=== PATIENT | female | born 1985 | race Caucasian/White ===

== ENCOUNTER 2021-01-15 13:42 | Emergency (ER) | payer MEDICAID, SELFPAY | END 2021-01-15 15:43 | disposition left against medical advice (07) | PROVIDERS: Emergency Provider Emergency Medicine; PCP Nurse Practitioner Family | DX: Z04.89 Encounter for examination and observation for other specified reasons (principal) ==

== ENCOUNTER 2021-06-04 10:31 | Outpatient (REF) | payer MEDICAID, SELFPAY ==
--- NOTE | ~2021-06-04 | US_ITS ---
EXAMINATION: US THYROID CLINICAL INFORMATION: Enlarged thyroid. COMPARISON: None TECHNIQUE: Linear transducer grayscale and color Doppler examination with attention to the region of the thyroid. FINDINGS: SIZE: Measurements of the thyroid lobes and nodules are given in sagittal, anteroposterior and transverse dimensions respectively. Right Thyroid Lobe: 4.9 x 1.4 x 1.5 cm, volume 5.3 mL. Parenchyma: The gland echotexture is homogeneous. Thyroid vascularity is normal. Left Thyroid Lobe: 5.0 x 1.3 x 1.6 cm, volume 5.2 mL. Parenchyma: The gland echotexture is homogeneous. Thyroid vascularity is normal. Isthmus: 0.3 cm in maximum AP dimension. No focal thyroid nodule is seen. NODES: No lymphadenopathy is seen in the tissue surrounding the thyroid gland. US/US thyroid IMPRESSION: Unremarkable examination. ACR TI-RADS RECOMMENDATION REFERENCE: Ultrasound-guided fine-needle aspiration, followup ultrasound, no further follow up. * TR1 (0 point) and TR 2 (2 points): No FNA or follow up * TR3 (3 points): FNA if more than or equal to 2.5 cm in maximum dimension, followup ultrasound in 1, 3 and 5 years if 1.5 to 2.4 cm in maximum dimension. * TR4 (4-6 points): FNA if more than or equal to 1.5 cm in maximum dimension, followup ultrasound in 1, 2, 3 and 5 years if 1 to 1.4 cm in maximum dimension. * TR5 (more than or equal to 7 points): FNA if more than or equal to 1 cm in maximum dimension, followup ultrasound every year for 5 years if 0.5 to 0.9 cm in maximum dimension. * TR3, TR4 or TR5 nodules that are below the size threshold for follow up receive no follow up.
== END 2021-06-04 10:32 | disposition home or self-care (01) ==
LOC: HO.US 10:31
PROVIDERS: PCP Family Medicine; Visit Provider Family Medicine
DX: R22.1 Localized swelling, mass and lump, neck (principal)
CPT/HCPCS: 76536

== ENCOUNTER 2021-06-19 13:23 | Outpatient (REF) | payer MEDICAID, SELFPAY ==
--- NOTE | ~2021-06-19 | MM_ITS ---
EXAMINATION: MM DIAGNOSTIC DIGITAL BREAST TOMOSYNTHESIS, BILATERAL US DIAGNOSTIC ULTRASOUND BREAST, LEFT CLINICAL INFORMATION: 35-year-old with intermittent pain lower left breast for approximately 3 months, not associated with menstrual cycle. No focal palpable mass or nipple discharge. No prior mammography. Remote history contralateral right retroareolar fibroadenoma, status post surgical excision years ago. No known family history breast cancer. The lifetime risk of breast cancer based on the Tyrer-Cuzick Model is 9%. COMPARISON: Report contralateral right breast ultrasound 10/18/2008. TECHNIQUE: Digital breast tomosynthesis is performed in both the craniocaudal and mediolateral oblique views along with computer-aided detection (CAD). Synthesized 2D images are generated from the tomosynthesis. Additional bilateral exaggerated CC views are provided. Ultrasound left breast is targeted to the areas of clinical concern 3:00 through 8:00 position. Grayscale imaging and color Doppler are performed without and with harmonics. FINDINGS: The breasts are heterogeneously dense, which may obscure small masses (ACR BI-RADS breast composition Category c). There are no significant masses, abnormal calcifications, or other abnormalities. The axilla and skin contours are unremarkable. There is no skin thickening or coarsening of the Chano's ligaments. Ultrasound demonstrates no cystic or solid mass or focal duct ectasia. No architectural abnormality. No skin thickening or edema tracking in soft tissue planes. Results are discussed with the patient at time of visit. MM/MM tomosynthesis diagnostic BI IMPRESSION: No mammographic evidence of malignancy or focal inflammatory changes. Unremarkable targeted left breast ultrasound. ASSESSMENT: BI-RADS 1: Negative RECOMMENDATION: 1. Patient's intermittent left breast pain should managed based on the clinical impression. 2. Otherwise, routine annual screening mammography, beginning age 40, or earlier as clinical risk factors warrant. This patient's information was entered into a reminder system with a target due date for their next mammogram.
== END 2021-06-19 13:24 | disposition home or self-care (01) ==
LOC: HO.MAMMO 13:23
PROVIDERS: Visit Provider Family Medicine
DX: N64.4 Mastodynia (principal)
CPT/HCPCS: 76642; 77062; 77066

== ENCOUNTER 2021-07-01 01:31 | Emergency (ER) | payer MEDICAID, SELFPAY | END 2021-07-01 02:43 | disposition left against medical advice (07) | PROVIDERS: Emergency Provider Emergency Medicine | DX: R53.83 Other fatigue (principal) ==

== ENCOUNTER 2021-07-06 09:43 | Outpatient (REF) | payer MEDICAID, SELFPAY ==
--- NOTE | ~2021-07-06 | US_ITS ---
EXAMINATION: US PELVIS CLINICAL INFORMATION: Abnormal uterine bleeding. COMPARISON: None TECHNIQUE: Ultrasound of the pelvis is performed using both transabdominal and transvaginal transducers along with Doppler. Transvaginal imaging is performed due to inadequate visualization transabdominally. FINDINGS: The uterus is anteverted and measures 11 x 5.5 x 6.9 cm in dimension. No focal uterine lesion is seen. There is an IUD in the uterus satisfactory position. The endometrium does not appear thickened measuring 1.2 cm. There is a nabothian cyst in the cervix. The ovaries are normal-appearing. The right ovary measures 3.2 x 2.9 x 2.7 cm. The left ovary measures 3.5 x 1.3 x 1.8 cm. There is no fluid in the pelvis. US/US pelvic and transvaginal IMPRESSION: IUD in the uterus in satisfactory position. Normal thickness endometrium.
== END 2021-07-06 09:44 | disposition home or self-care (01) ==
LOC: HO.HMGCX 09:43
PROVIDERS: PCP Family Medicine; Visit Provider Family Medicine
DX: N93.9 Abnormal uterine and vaginal bleeding, unspecified (principal)
CPT/HCPCS: 76830; 76856

== ENCOUNTER 2021-07-07 17:54 | Emergency (ER) | payer MEDICAID, SELFPAY ==
--- NOTE | ~2021-07-07 | XR_ITS ---
EXAMINATION: XR FOOT, LEFT CLINICAL INFORMATION: Fourth digit injury COMPARISON: 12/22/2019 TECHNIQUE: AP, lateral, and oblique views of the left foot. FINDINGS: There is an obliquely oriented diaphyseal fracture through the proximal fourth phalanx. This does not appear to extend to the proximal or distal articular surface. I do not appreciate any other bony destructive lesions or acute bony abnormality. Tiny linear metallic foreign body in the distal fourth toe soft tissues similar to the 2020 x-ray's. XR/XR foot LT 2V IMPRESSION: Obliquely oriented very minimally displaced and not significantly angulated fracture through the proximal fourth phalanx without intra-articular extension
[2021-07-07 18:04] VITALS: BP 114/74; PULSE 88; RESP 18; TEMP 36.7; O2SAT 97; BMI 23.1
--- NOTE | 2021-07-07 19:17 | ED.LOWEXIN ---
HPI - Extremity Injury (Lower) General Chief Complaint: Extremity Injury, Lower Stated Complaint: toe inj Time Seen by Provider: 07/07/21 19:17 Source: patient Mode of arrival: ambulatory Limitations: no limitations History of Present Illness HPI Narrative: Patient hit her left foot toe to the box of tools just prior to arrival complaining of pain at the base left foot toe with slight ecchymosis no other injuries Related Data Previous Rx's Medication Instructions Recorded ibuprofen 600 mg tablet 600 mg PO Q6H PRN #20 tab 07/07/21 Allergies Allergy/AdvReac Type Severity Reaction Status Date / Time LOCAL ANESTHESIA Allergy Unknown BURNING/ GR Uncoded 06/29/20 17:17 OWING Review of Systems Review of Systems: Yes all other systems are reviewed and are negative PMFSH Past Medical History Medical History No active medical problems Social History Social History Advance Directives: No Advance Directives Information Provided: Yes Patient : No Physical Exam Vital Signs: Vital Signs: Last Vital Signs Temp 98.1 F 07/07/21 18:04 Pulse 88 07/07/21 18:04 Resp 18 07/07/21 18:04 BP 114/74 07/07/21 18:04 Pulse Ox 97 07/07/21 18:04 Body Mass Index 23.1 Const: General: no acute distress Extrem: Ankle/foot/toe images: 1. Ecchymotic tender left 4th toe neurovascular intact MDM - Extremity Injury (Lower) MDM Narrative Medical decision making narrative: Harlan-tape uptight the left 3rd 4th and 5th toe advised to follow-up with PCP ibuprofen for pain Discharge Plan Discharge Clinical Impression: Fracture of toe Patient Disposition: Home, Self-Care Instructions: Toe Fracture (ED) Additional Instructions: use harlan tape as adv motrin for pain Prescriptions: New ibuprofen 600 mg tablet 600 mg PO Q6H PRN (Reason: pain) Qty: 20 RF: 0 Interventions: ED Discharge Assessment Last Done: 07/07/21 19:50 Discharge Date/Time: 07/07/21 19:51
[2021-07-07] MEDS: Ibuprofen 600 MG TABLET PO (19:48)
== END 2021-07-07 19:51 | disposition home or self-care (01) ==
LOC: HO.ED 19:32
PROVIDERS: Emergency Provider Internal Medicine; PCP Family Medicine
DX: S92.912A Unspecified fracture of left toe(s), initial encounter for closed fracture (principal); M79.675 Pain in left toe(s); W01.10XA Fall on same level from slipping, tripping and stumbling with subsequent striking against unspecified object, initial encounter; Y93.9 Activity, unspecified; Y92.9 Unspecified place or not applicable; Y99.9 Unspecified external cause status
CPT/HCPCS: 73620; 99283; 99284

== ENCOUNTER 2021-08-01 23:23 | Emergency (ER) | payer MEDICAID, SELFPAY ==
[2021-08-01 23:25] VITALS: BP 121/81; PULSE 96; RESP 18; TEMP 36.7; O2SAT 100; BMI 22.7
--- NOTE | 2021-08-01 23:37 | ED_ITS ---
HPI - General Adult General Chief complaint: General Medical Stated complaint: Light Headedness Time Seen by Provider: 08/01/21 23:37 Source: patient Mode of arrival: ambulatory Limitations: no limitations History of Present Illness HPI narrative: Patient history of chronic constipation took 3 tablets of Dulcolax had a bowel movement with abdominal cramping felt lightheaded and felt like passing out with cold sweats lay down had some fluid by mouth feeling much better now never had similar feeling the past Related Data Previous Rx's Medication Instructions Recorded ibuprofen 600 mg tablet 600 mg PO Q6H PRN #20 tab 07/07/21 bisacodyl 5 mg tablet,delayed 10 mg PO BEDTIME 2 Days #4 tab 08/02/21 release (Dulcolax (bisacodyl)) polyethylene glycol 3350 17 17 g PO DAILY #510 g 08/02/21 gram/dose oral powder (Miralax) Allergies Allergy/AdvReac Type Severity Reaction Status Date / Time LOCAL ANESTHESIA Allergy Unknown BURNING/ GR Uncoded 06/29/20 17:17 OWING Review of Systems Review of Systems: Yes all other systems are reviewed and are negative [facility] Past Medical History Medical History No active medical problems Social History Social History Advance Directives: No Advance Directives Information Provided: Yes Patient : No Physical Exam Vital Signs: Vital Signs: Last Vital Signs Temp 97.7 F 08/02/21 00:00 Pulse 88 08/02/21 00:16 Resp 16 08/02/21 00:00 BP 116/76 08/02/21 00:16 Pulse Ox 99 08/02/21 00:00 Body Mass Index 22.7 Appearance: Alert. Oriented X3. No acute distress. Eyes: PERRLA, no pallor or icterus ENT: Pharynx normal. Oral Mucosa moist Neck: Normal inspection. Neck supple. CVS: Normal heart rate and rhythm. Pulses normal. Respiratory: No respiratory distress. Equal air entry bilateral, no wheezing/rales/rhonchi Abdomen: Soft and nontender. Bowel sounds are present, no mass palpable, no CVA tenderness Skin: Skin warm and dry. Normal skin color. Normal skin turgor. Extremities: No lower extremity edema. No calf tenderness Neuro: Oriented X 3. Medical Decision Making MDM Narrative Medical decision making narrative: Patient with vasovagal near syncope, orthostatic SIRS normal patient feeling much better now after arrival to the ER will discharge patient home Lab Data Labs: Lab Results 08/02/21 08/02/21 Range/Units 00:09 00:09 Urine Color YELLOW Urine Appearance CLEAR Urine pH 6.0 (5.0-8.0) Ur Specific [place] >= 1.030 H (1.005-1.025) Urine Protein TRACE (NEG-TRACE) MG/DL Urine Glucose (UA) NEG (NEG) MG/DL Urine Ketones NEG (NEG) MG/DL Urine Blood NEG (NEG) Urine Nitrite NEG (NEG) Ur Leukocyte Esterase NEG (NEG) Urine Test NEGATIVE (NEGATIVE) Discharge Plan Discharge Clinical Impression: Vasovagal episode Patient Disposition: Home, Self-Care Instructions: Near Syncope (ED) Additional Instructions: Drink plenty of fluids take stool softeners as prescribed Prescriptions: New bisacodyl [Dulcolax (bisacodyl)] 5 mg tablet,delayed release (DR/EC) 10 mg PO BEDTIME 2 Days Qty: 4 RF: 0 polyethylene glycol 3350 [Miralax] 17 gram/dose powder 17 g PO DAILY Qty: 510 RF: 0 No Action ibuprofen 600 mg tablet 600 mg PO Q6H PRN (Reason: pain) Qty: 20 RF: 0 Interventions: ED Discharge Assessment Last Done: 08/02/21 01:15 Discharge Date/Time: 08/02/21 01:15
[2021-08-02] VITALS: BP 116/76; PULSE 88; RESP 16; TEMP 36.5; O2SAT 99
[2021-08-02 00:16] VITALS: BP 106/75; BP 111/76; BP 116/76; PULSE 75; PULSE 82; PULSE 88
[2021-08-02 00:17] LABS: Appearance Urine CLEAR; Color Urine YELLOW; Glucose Urine UA NEG (NEG); Leukocyte Esterase Urine NEG (NEG); Nitrite Urine NEG (NEG); Specific Gravity - Urine >= 1.030 (1.005-1.025); Urine Blood NEG (NEG); Urine Ketones NEG (NEG); Urine Protein TRACE MG/DL (NEG-TRACE)
[2021-08-02 00:21] LABS: UPreg QC Valid YES; Urine Pregnancy NEGATIVE (NEGATIVE)
== END 2021-08-02 01:15 | disposition home or self-care (01) ==
PROVIDERS: Emergency Provider Internal Medicine; PCP Family Medicine
DX: R55 Syncope and collapse (principal)
CPT/HCPCS: 81003; 81025; 87086; 99283; 99284

== ENCOUNTER 2021-09-07 01:26 | Emergency (ER) | payer MEDICAID, SELFPAY ==
[2021-09-07 01:45] VITALS: BP 111/73; PULSE 85; RESP 16; TEMP 36.6; O2SAT 99; BMI 21.9
--- NOTE | 2021-09-07 02:11 | ED.GENADULT ---
HPI - General Adult General Chief complaint: General Medical Stated complaint: migrane, throat pain Time Seen by Provider: 09/07/21 02:11 Source: patient Mode of arrival: ambulatory Limitations: no limitations History of Present Illness HPI narrative: patient complaining of for last 3 days sore throat and left ear pain painful to swallow no fever patient child was also sick few days the patient denies any cough been vaccinated against COVID Related Data Previous Rx's Medication Instructions Recorded ibuprofen 600 mg tablet 600 mg PO Q6H PRN #20 tab 07/07/21 bisacodyl 5 mg tablet,delayed 10 mg PO BEDTIME 2 Days #4 tab 08/02/21 release (Dulcolax (bisacodyl)) polyethylene glycol 3350 17 17 g PO DAILY #510 g 08/02/21 gram/dose oral powder (Miralax) amoxicillin 875 mg-potassium 1 tab PO BID #20 tab 09/07/21 clavulanate 125 mg tablet (Augmentin) Allergies Allergy/AdvReac Type Severity Reaction Status Date / Time LOCAL ANESTHESIA Allergy Unknown BURNING/ GR Uncoded 06/29/20 17:17 OWING PMFSH Past Medical History Medical History No active medical problems Social History Social History Advance Directives: No Advance Directives Information Provided: Yes Patient : No Physical Exam Vital Signs: Vital Signs: Last Vital Signs Temp 98 F 09/07/21 01:45 Pulse 85 09/07/21 01:45 Resp 16 09/07/21 01:45 BP 111/73 09/07/21 01:45 Pulse Ox 99 09/07/21 01:45 Body Mass Index 21.9 Appearance: Alert. Oriented X3. No acute distress. ENT: erythema posterior pharynx++ Oral Mucosa moist Neck: Normal inspection. Neck supple. CVS: Normal heart rate and rhythm. Pulses normal. Respiratory: No respiratory distress. Equal air entry bilateral, no wheezing/rales/rhonchi Abdomen: Soft and nontender. Bowel sounds are present, no mass palpable, Skin: Skin warm and dry. Normal skin color. Normal skin turgor. Extremities: No lower extremity edema. No calf tenderness Neuro: Oriented X 3. Medical Decision Making Lab Data Lab results reviewed: Yes I reviewed the patient's lab results. Labs: Lab Results 09/07/21 09/07/21 Range/Units 02:19 02:19 COVID-19 (QUINTIN) Negative (Negative) COVID-19 Clin Com See Note S. pyogenes GrpA ERIK Positive A (Negative) Discharge Plan Discharge Clinical Impression: Strep pharyngitis Patient Disposition: Home, Self-Care Instructions: Strep Throat (ED) Additional Instructions: drink plenty of fluids Tylenol/Motrin for fever and pain antibiotic as prescribed follow with PCP if not better Prescriptions: New amoxicillin-pot clavulanate [Augmentin] 875-125 mg tablet 1 tab PO BID Qty: 20 RF: 0 No Action ibuprofen 600 mg tablet 600 mg PO Q6H PRN (Reason: pain) Qty: 20 RF: 0 bisacodyl [Dulcolax (bisacodyl)] 5 mg tablet,delayed release (DR/EC) 10 mg PO BEDTIME 2 Days Qty: 4 RF: 0 polyethylene glycol 3350 [Miralax] 17 gram/dose powder 17 g PO DAILY Qty: 510 RF: 0 Interventions: ED Discharge Assessment Last Done: 09/07/21 03:35 Discharge Date/Time: 09/07/21 03:36
[2021-09-07 02:36] LABS: IDNOW Serial# 9DD0AD1C; Strep A Nucleic Acid Positive (Negative)
[2021-09-07 02:47] LABS: COVID-19 Test Negative (Negative)
[2021-09-07] MEDS: Amoxicillin/Potassium Clav 875 MG TABLET PO (03:16)
== END 2021-09-07 03:36 | disposition home or self-care (01) ==
PROVIDERS: Emergency Provider Internal Medicine
DX: J02.0 Streptococcal pharyngitis (principal); Z20.822 Contact with and (suspected) exposure to COVID-19
CPT/HCPCS: 36415; 87635; 87651; 99283

== ENCOUNTER 2021-10-30 15:02 | Emergency (ER) | payer MEDICAID, SELFPAY | END 2021-10-30 16:00 | disposition left against medical advice (07) | PROVIDERS: Emergency Provider Emergency Medicine | DX: M79.673 Pain in unspecified foot (principal) ==

== ENCOUNTER → 2022-01-23 13:38 | Outpatient (REF) | payer MEDICAID, SELFPAY | LOC: HO.CARD 13:38 | PROVIDERS: PCP Family Medicine; Referring Provider Family Medicine; Visit Provider Internal Medicine | DX: R00.2 Palpitations (principal); R06.02 Shortness of breath; R42 Dizziness and giddiness | CPT/HCPCS: 93005; 99202 ==

== ENCOUNTER → 2022-03-07 13:04 | Outpatient (REF) | payer MEDICAID, SELFPAY ==
--- NOTE | 2022-03-07 13:12 | HM_ITS ---
Patient is a 36-year-old female. REQUESTING PROVIDER: Stephen Swartz M.D. INTERPRETATION: Patient was hooked up to cardiac event monitor from 03/06/2022, to 04/02/2022, for a total period of 28 days. FINDINGS: Baseline rhythm is normal sinus rhythm with average heart rate varying from 56 beats per minute to 168 beats per minute. There were no significant pauses noted. There were rare isolated PVCs noted. Patient reported multiple events of palpitations of the 10 reported events to correlated with isolated PVCs, this correlated with underlying rhythm. CONCLUSION: Cardiac event monitor is remarkable for: 1. Baseline normal sinus rhythm. 2. Rare isolated PVCs. 3. 2 of the 10 reported events correlated with isolated PVCs. Harvey Olivares MD NRS/MODL / [id number]
--- NOTE | 2022-03-07 13:12 | CA_ITS ---
Transthoracic Echocardiogram Patient (Last, First, Middle): Heather Rajput, Gender: Female Date of : 1985 Age: 36 Procedure Date: 03/07/2022 Procedure Type: Transthoracic Echocardiogram Location: OP Height: 170.18 cm Weight: 68.04 kg BSA: 1.79 m2 Heart Rate: bpm BP: 118 / 78 mmHg Citizenship Teacher: MARIA ALEJANDRA Referring MD: Stephen Swartz MD Lens Grinder: Harvey Olivares MD Symptoms: R00.2 - Palpitations Study Quality: Good ECG Rhythm: Sinus Conclusions: - Normal study Findings Left Ventricle Normal left ventricular size, thickness, and systolic function. The visually estimated ejection fraction is between 60-65%. Diastolic function is normal for age. Peak GLS is - 21%, within normal limits Right Ventricle Normal right ventricular cavity size and systolic function. Atria Both atria are normal in size. There is no evidence of interatrial shunt. Aortic Valve Normal aortic valve structure and function. There is no aortic valve stenosis. There is no aortic valve regurgitation. Mitral Valve Normal mitral valve structure and function. There is trace mitral valve regurgitation. There is no mitral valve stenosis. Pulmonic Valve The pulmonic valve was not well visualized. Tricuspid Valve Likely normal tricuspid valve structure and function. There is trace tricuspid valve regurgitation. The right ventricular systolic pressure is normal. The right ventricular systolic pressure is 12 mmHg. Normal right atrial pressure. There is no evidence of pulmonary hypertension. Great Vessels All visible segments of the aorta are normal in size. The visualized portions of the pulmonary artery and branches are normal. Venous The inferior vena cava is normal in size and collapses greater than 50% with inspiration. Pericardium/Pleural There is no evidence of pericardial effusion. Measurements 2D Linear Measurements IVSd: 0.68 0.6-0.9/0.6-1.0 cm LVIDd: 4.81 3.9-5.3/4.2-5.9 cm LVIDd Index: 2.69 2.4-3.2/2.2-3.1 cm/m2 LVIDs: 3.08 2.0-3.6 cm LVPWd: 0.77 0.7-1.1 cm LA Diam: 3.00 2.7-3.8/3.0-4.0 cm LAIDs Index: 1.68 1.5-2.3 cm/m2 LV Mass: 139.02 67-162/88-224 g LV Mass Index: 77.67 43-95/49-115 g/m2 LVOT Diam: 2.20 3.0+(-)1.3 cm 2D Systolic Function EF 4C: 66.60 >55% EF 2C: 66.80 >55% EF BiP: 67.00 >55% Mitral Valve MV Pk E: 0.94 MV PK A: 0.58 MV Decel Time: 237.00 E/A: 1.60 E'Lateral: 13.30 E'Medial: 10.40 E/E' Med: 9.00 E/E' Lat: 7.00 PHT: 69.00 MVA PHT: 3.19 Decel Wise: 4.25 Aortic Valve AoV Pk Tahir: 1.24 AoV Mn Tahir: 0.93 AoV VTI: 0.27 AoV Pk Grad: 6.00 Aov Mn Grad: 4.00 PHYLLIS Cont.VTI: 2.93 LVOT LVOT Pk Tahir: 0.95 LVOT Mn Tahir: 0.64 LVOT VTI: 0.21 LVOT Pk Grad: 4.00 LVOT Mn Grad: 2.00 LVOT Diam: 2.20 LVOT Area: 3.80 Diastolic Function MV Pk E: 0.94 MV Pk A: 0.58 E/A: 1.60 E'Medial: 10.40 E/E' Med: 9.00 E' Laterial: 13.30 E/E' Lat: 7.00 Right Ventricle TAPSE (mm): 24.70 TVS' Tahir: 12.10 Tricuspid Valve TR Pk Tahir: 1.51 TR Pk Grad: 9.00 RA Press: 3.00 RVSP: 12.00 Great Vessels Aorta Sinus of Valsalva: 2.90 2.0-3.[address] [place]: 2.44 1.7-3.4 cm Ao Asc: 2.70 2.1-3.4 cm Ao Arch: 2.50 Updated in Other Vendor System with Status of Final Harvey Olivares MD electronically signed on 03/07/2022 4:01:31 PM with status of Final
== END ==
LOC: HO.CARD 13:04
PROVIDERS: PCP Family Medicine; Visit Provider Internal Medicine
DX: R00.2 Palpitations (principal); R06.02 Shortness of breath
CPT/HCPCS: 93270; 93306; 93356

== ENCOUNTER 2022-03-23 15:58 | Emergency (ER) | payer MEDICAID, SELFPAY ==
[2022-03-23 16:01] VITALS: BP 115/83; PULSE 69; RESP 18; TEMP 36.6; O2SAT 100; BMI 23.5
--- NOTE | 2022-03-23 16:03 | ECG_ITS ---
Test Reason : CP Blood Pressure : / mmHG Vent. Rate : 064 BPM Atrial Rate : 064 BPM P-R Int : 126 ms QRS Dur : 078 ms QT Int : 428 ms P-R-T Axes : 013 024 005 degrees QTc Int : 441 ms Normal sinus rhythm Normal ECG When compared with ECG of 13-SEP-2016 14:03, No significant change was found Referred By: Generic ED Physician Electronically Signed By:JULIANA STONE
== END 2022-03-23 17:53 | disposition left against medical advice (07) ==
PROVIDERS: Emergency Provider Emergency Medicine
DX: R07.9 Chest pain, unspecified (principal)
CPT/HCPCS: 93005; 99282; 99283

== ENCOUNTER 2022-04-24 03:09 | Emergency (ER) | payer MEDICAID, SELFPAY ==
[2022-04-24 03:33] VITALS: BP 132/89; PULSE 84; RESP 24; TEMP 36.7; O2SAT 98; BMI 23.5
== END 2022-04-24 06:45 | disposition left against medical advice (07) ==
PROVIDERS: Emergency Provider Emergency Medicine
DX: R53.83 Other fatigue (principal); R42 Dizziness and giddiness
CPT/HCPCS: 99281

== ENCOUNTER 2022-06-07 20:59 | Emergency (ER) | payer MEDICAID, SELFPAY ==
[2022-06-07 21:40] VITALS: BP 131/84; PULSE 90; RESP 16; TEMP 37.2; O2SAT 97; BMI 23.5
[2022-06-07 22:02] LABS: COVID-19 Test Positive (Negative)
== END 2022-06-08 00:07 | disposition left against medical advice (07) ==
LOC: HO.ED 06-08 00:04
PROVIDERS: Emergency Provider Emergency Medicine; PCP Family Medicine
DX: U07.1 COVID-19 (principal); R51.9 Headache, unspecified
CPT/HCPCS: 87635; 99281; 99283

== ENCOUNTER 2022-06-10 19:01 | Emergency (ER) | payer MEDICAID, SELFPAY | END 2022-06-10 20:29 | disposition left against medical advice (07) | PROVIDERS: Emergency Provider Emergency Medicine; PCP Family Medicine | DX: R51.9 Headache, unspecified (principal); R06.02 Shortness of breath ==

== ENCOUNTER 2022-06-11 17:10 | Emergency (ER) | payer MEDICAID, SELFPAY ==
--- NOTE | ~2022-06-11 | XR_ITS ---
EXAMINATION: XR CHEST CLINICAL INFORMATION: Shortness of breath, Covid positive COMPARISON: Chest radiographic report 05/02/2006 TECHNIQUE: Frontal view of the chest was obtained. FINDINGS: No significant abnormality is noted involving the heart, lungs, mediastinum, bony thorax or soft tissues. XR/XR chest 1V IMPRESSION: Unremarkable examination.
[2022-06-11 17:20] VITALS: BP 118/75; PULSE 89; RESP 18; TEMP 37.1; O2SAT 98; BMI 23.5
--- NOTE | 2022-06-11 17:44 | PC.NURSE ---
Patient reports testing positive for covid Friday. Reports increased flank pain, coughing, redness in left eye. headache, and generalized muscular pain. Patient reports that her O2 drops to low 90s during the night time.
[2022-06-11 17:55] LABS: COVID-19 Test Positive (Negative); IDNOW Serial# 16C4AD1C
[2022-06-11 19:11] VITALS: BP 118/73; PULSE 91; RESP 20; TEMP 38; O2SAT 98
[2022-06-11 19:12] LABS: Appearance Urine Cloudy; Color Urine Yellow; Glucose Urine UA Negative (Negative); Leukocyte Esterase Urine Large (3+) (Negative); Nitrite Urine Negative (Negative); Specific Gravity - Urine 1.015 (1.005-1.025); Urine Blood Trace (Negative); Urine Ketones Negative (Negative); Urine Protein Trace mg/dL (Neg-Trace)
[2022-06-11] MEDS: Ibuprofen 600 MG TABLET PO (19:12)
[2022-06-11] MEDS: Benzonatate 100 MG CAPSULE 200 MG PO (19:12)
[2022-06-11 19:14] LABS: UPreg QC Valid YES; Urine Pregnancy NEGATIVE (NEGATIVE)
[2022-06-11 19:17] LABS: Bacteria Urine 4+ (None Seen); Hyaline Casts Urine 0-2 /LPF (0-2); Squamous Epithelial Cell Urine 0-2 /HPF (0-2); UACC Culture Trigger YES; WBC Urine >50 /HPF (0-5)
--- NOTE | 2022-06-11 19:24 | ED.GENADULT ---
HPI - General Adult General Chief complaint: General Medical Stated complaint: SOB/back pain/vision blurred Time Seen by Provider: 06/11/22 17:50 Source: patient Mode of arrival: ambulatory Limitations: no limitations History of Present Illness HPI narrative: Patient already been vaccinated including a booster dose diagnosed with COVID on 06/07 comes here as having body aches cough low back pain no urinary complaints low-grade fever coughing a lot with mucoid phlegm , her kids also sick with same Related Data Previous Rx's Medication Instructions Recorded codeine 10 mg-guaifenesin 100 mg/5 10 ml PO Q6H PRN cough #237 mL 06/11/22 mL oral liquid ibuprofen 600 mg tablet 600 mg PO Q8H PRN pain #30 tabs 06/11/22 levofloxacin 500 mg tablet 500 mg PO DAILY 7 days #7 tabs 06/11/22 Allergies Allergy/AdvReac Type Severity Reaction Status Date / Time procaine AdvReac Unknown faints Verified 01/23/22 13:43 [facility] Past Medical History Medical History (Updated 06/11/22 @ 19:37 by Narinder Méndez MD) No active medical problems Surgical History (Updated 01/23/22 @ 13:44 by WILLIAM Cleary) S/P breast biopsy, right Family History Family History (Updated 01/23/22 @ 13:44 by WILLIAM Cleary) Father H/O heart artery stent Cardiovascular disease Mother No problems noted. Social History Social History (Updated 01/23/22 @ 13:45 by WILLIAM Cleary) Patient Tobacco Use Status: Never used Tobacco Advance Directives: No Advance Directives Information Provided: No Physical Exam ED Vital Signs: Vital Signs - 24 hr 06/11/22 17:20 06/11/22 19:11 Temperature 98.8 F 100.4 F Pulse Rate 89 91 Respiratory Rate 18 20 Blood Pressure 118/75 118/73 Pulse Oximetry 98 98 Oxygen Delivery Method Room Air Room Air BMI result Body Mass Index 23.5 Appearance: Alert. Oriented X3. No acute distress. Eyes: No pallor slight subconjunctival hemorrhage of the left eye ENT: Pharynx normal. Oral Mucosa moist Neck: Normal inspection. Neck supple. CVS: Normal heart rate and rhythm. Pulses normal. Respiratory: No respiratory distress. Equal air entry bilateral, Abdomen: Soft and nontender. Bowel sounds are present, no mass palpable, no CVA tenderness Skin: Skin warm and dry. Normal skin color. Normal skin turgor. Back: Diffuse tenderness lower lumbar spine area no CVA tenderness Extremities: No lower extremity edema. No calf tenderness Neuro: Oriented X 3. No motor deficit. Medical Decision Making MDM Narrative Medical decision making narrative: Patient with COVID low back pain urine shows positive wbc's and nitrite will start on Levaquin chest x-ray negative for infiltrate Lab Data Lab results reviewed: Yes I reviewed the patient's lab results. Labs: Lab Results 06/11/22 06/11/22 06/11/22 Range/Units 17:23 19:04 19:04 Urine Color Yellow Urine Appearance Cloudy Urine pH 7.0 (5.0-9.0) Ur Specific [place] 1.015 (1.005-1.025) Urine Protein Trace (Neg-Trace) mg/dL Urine Glucose (UA) Negative (Negative) mg/dL Urine Ketones Negative (Negative) mg/dL Urine Blood Trace H (Negative) Urine Nitrite Negative (Negative) Ur Leukocyte Esterase Large (3+) H (Negative) Urine RBC 3-5 H (0-2) /HPF Urine WBC >50 H (0-5) /HPF Ur Squamous Epith Cells 0-2 (0-2) /HPF Urine Bacteria 4+ (None Seen) Hyaline Casts 0-2 (0-2) /LPF Urine Test NEGATIVE (NEGATIVE) COVID-19 (QUINTIN) Positive A (Negative) COVID-19 Clin Com See Note Discharge Plan Discharge Clinical Impression: COVID-19, UTI (urinary tract infection) Patient Disposition: Home, Self-Care Instructions: Urinary Tract Infection in Women (ED), COVID-19 (Coronavirus Disease 2019) (ED) Additional Instructions: Social distancing is advised Antibiotic and cough syrup as prescribed Prescriptions: New levofloxacin 500 mg tablet 500 mg PO DAILY 7 Days Qty: 7 0RF codeine-guaifenesin 10-100 mg/5 mL liquid 10 ml PO Q6H PRN (Reason: cough) Qty: 237 0RF ibuprofen 600 mg tablet 600 mg PO Q8H PRN (Reason: pain) Qty: 30 0RF Interventions: ED Discharge Assessment Last Done: 06/11/22 20:04 Discharge Date/Time: 06/11/22 20:05
[2022-06-11] MEDS: levoFLOXacin 500 MG TABLET PO (19:56)
== END 2022-06-11 20:05 | disposition home or self-care (01) ==
PROVIDERS: Emergency Provider Internal Medicine; PCP Family Medicine
DX: U07.1 COVID-19 (principal); N39.0 Urinary tract infection, site not specified; B96.20 Unspecified Escherichia coli [E. coli] as the cause of diseases classified elsewhere
CPT/HCPCS: 36415; 71045; 74176; 80048; 81001; 81025; 85007; 85027; 87086; 87088; 87186; 87635; 96374; 96375; 99283; 99284; J0696; J1885; J2405

== ENCOUNTER 2022-06-11 23:37 | Emergency (ER) | payer MEDICAID, SELFPAY ==
--- NOTE | ~2022-06-11 | CT_ITS ---
EXAMINATION: CT ABDOMEN AND PELVIS WITHOUT CONTRAST CLINICAL INFORMATION: Right flank pain. UTI. COMPARISON: 03/08/2016 TECHNIQUE: Multidetector volumetric imaging was performed from the superior aspect of the liver through the pubic symphysis. Sagittal and coronal reformatted images were obtained on the technologist's workstation. This CT examination was performed using dose optimization techniques as appropriate, variously including the following: *Automated exposure control *Adjustment of mA and/or kV according to patient size (this includes techniques or standardized protocols for targeted exams where dose is matched to indication/reason for exam; i.e. extremities or head) *Use of iterative reconstruction technique DLP: 530 mGy-cm FINDINGS: LUNG BASES: The visualized lung bases are unremarkable. LIVER, GALLBLADDER, AND BILIARY TREE: The liver is normal in size, shape, and attenuation. No focal hepatic lesion or biliary ductal dilatation is present. The gallbladder is unremarkable with no evidence of radiopaque gallstones, gallbladder wall thickening, or obvious pericholecystic inflammatory changes. PANCREAS: Unremarkable. SPLEEN: Unremarkable. ADRENAL GLANDS: Unremarkable. KIDNEYS AND URETERS: The kidneys are normal in size, shape, and attenuation. There is a 4.3 cm simple cyst in the upper pole right kidney which is benign. No hydronephrosis, hydroureter, or calculi seen. No perinephric stranding. BLADDER: Unremarkable. GASTROINTESTINAL TRACT: The small and large bowel are unremarkable. The appendix is unremarkable. ABDOMINAL WALL: No significant hernia is appreciated. LYMPH NODES: Normal. VASCULAR: Unremarkable. PELVIC VISCERA: IUD present within the uterus. Ovaries unremarkable. Multiple phleboliths present pelvis. OSSEOUS STRUCTURES: Unremarkable. CT/CT abdomen pelvis wo IV con IMPRESSION: No hydronephrosis. No definite urinary calculi. Multiple phleboliths are present within the pelvis, some of which are present in the region of the right uterovesical junction. No perinephric abnormalities.
[2022-06-11 23:40] VITALS: BP 117/71; BP 138/62; PULSE 105; PULSE 109; RESP 20; TEMP 37.8; O2SAT 96; O2SAT 97; BMI 23.5
--- NOTE | 2022-06-11 23:53 | ED.CHESTPAIN ---
HPI - Chest Pain General Chief Complaint: Chest Pain Stated Complaint: CP,KIDNEY INFECTION, COVID + Time Seen by Provider: 06/11/22 23:53 Source: patient Mode of arrival: ambulatory Limitations: no limitations History of Present Illness HPI narrative: Patient was discharged home with diagnosis of UTI. Was given a dose of Levaquin just few hours prior to arrival went home with increased nausea still complaining of back pain not feeling good patient diagnosed with COVID 4 days ago on arrival patient temperature was 100 degrees Related Data Previous Rx's Medication Instructions Recorded codeine 10 mg-guaifenesin 100 mg/5 10 ml PO Q6H PRN cough #237 mL 06/11/22 mL oral liquid ibuprofen 600 mg tablet 600 mg PO Q8H PRN pain #30 tabs 06/11/22 levofloxacin 500 mg tablet 500 mg PO DAILY 7 days #7 tabs 06/11/22 Allergies Allergy/AdvReac Type Severity Reaction Status Date / Time procaine AdvReac Unknown faints Verified 01/23/22 13:43 Review of Systems Review of Systems: Yes all other systems are reviewed and are negative [facility] Past Medical History Medical History No active medical problems Surgical History S/P breast biopsy, right Family History Family History Father H/O heart artery stent Cardiovascular disease Mother No problems noted. Social History Social History Patient Tobacco Use Status: Never used Tobacco Advance Directives: No Advance Directives Information Provided: No Physical Exam Vital Signs: Vital Signs: Last Vital Signs Temp 100.0 F 06/11/22 23:40 Pulse 109 H 06/11/22 23:40 Resp 20 06/11/22 23:40 BP 117/71 06/11/22 23:40 Pulse Ox 96 06/11/22 23:40 O2 Del Method 06/11/22 23:40 BMI result Body Mass Index 23.5 Appearance: Alert. Oriented X3. No acute distress. Eyes: No pallor or icterus ENT: Pharynx normal. Oral Mucosa moist Neck: Normal inspection. Neck supple. CVS: Normal heart rate and rhythm. Pulses normal. Respiratory: No respiratory distress. Equal air entry bilateral, no wheezing/rales/rhonchi Abdomen: Soft and nontender. Bowel sounds are present, no mass palpable, no CVA tenderness diffuse lumbar tenderness Skin: Skin warm and dry. Normal skin color. Normal skin turgor. Extremities: No lower extremity edema. No calf tenderness Neuro: Oriented X 3. MDM - Chest Pain MDM Narrative Medical decision making narrative: Patient with UTI with normal serum CBC count , COVID positive came 3rd time within [address] scan was done which is negative for acute pathology except for a cyst on the right kidney will discharge patient home advised to continue Levaquin and other prescriptions as prescribed before Medical Records Data Attestation: I reviewed the patient's medical records. Lab Data Attestation: I reviewed the patient's lab results. Result diagrams: 06/12/22 00:09 06/12/22 00:09 Labs: Lab Results 06/12/22 06/12/22 Range/Units 00:09 00:09 WBC 10.3 (4.8-10.8) X10*3/uL RBC 4.28 (4.20-5.50) X10*6/uL Hgb 10.6 L (12.0-16.0) g/dl Hct 33.9 L (37.0-47.0) % MCV 79.2 L (80.0-98.0) fL MCH 24.8 L (27.0-33.0) pg MCHC 31.3 (31.0-35.0) g/dl RDW 16.7 H (11.0-16.0) % Plt Count 174 (160-400) X10*3/uL MPV 11.9 (9.4-12.3) fL Absolute Nucleated RBC 0.000 (0.0-0.012) X10*3/uL Nucleated RBC % (auto) 0.0 (0.0-0.2) /100WBC Neutrophils % (Manual) 81 H (45-73) % Band Neutrophils % 7 H (3-5) % Lymphocytes % (Manual) 6 L (20-40) % Monocytes % (Manual) 6 (2-11) % Abs Neuts (Manual) 9.1 H (2.0-8.3) X10*3/uL Lymphocytes # (Manual) 0.6 L (1.2-4.9) X10*3/uL Monocytes # (Manual) 0.6 (0.1-1.2) X10*3/uL Smudge Cells PRESENT Platelet Estimate NORMAL (NORMAL) Large Platelets PRESENT Plt Morphology Comment NORMAL RBC Morphology NOTED Microcytosis 1+ (5-14) /OIF Macrocytosis 1+ (5-14) /OIF Ovalocytes 1+ (5-14) /OIF Stomatocytes 1+ (5-14) /OIF Sodium 140 (135-145) mmol/L Potassium 3.7 (3.3-5.1) mmol/L Chloride 104 (96-108) mmol/L Carbon Dioxide 26 (22-29) mmol/L Anion Gap 14 (12-20) BUN 10 (9-16) mg/dL Creatinine 0.75 (0.5-1.4) mg/dL Estim Creat Clear Calc 101.7 Estimated GFR > 60 Random Glucose 112 (60-115) mg/dL Calcium 8.9 (8.4-10.2) mg/dL Discharge Plan Discharge Clinical Impression: COVID-19, UTI (urinary tract infection) Patient Disposition: Home, Self-Care Instructions: Urinary Tract Infection in Women (ED), COVID-19 (Coronavirus Disease 2019) (ED) Additional Instructions: Continue antibiotic and other prescription which was given to you before Drink plenty of fluids Social distancing as advised Prescriptions: No Action levofloxacin 500 mg tablet 500 mg PO DAILY 7 Days Qty: 7 0RF codeine-guaifenesin 10-100 mg/5 mL liquid 10 ml PO Q6H PRN (Reason: cough) Qty: 237 0RF ibuprofen 600 mg tablet 600 mg PO Q8H PRN (Reason: pain) Qty: 30 0RF
[2022-06-12] MEDS: 0.9 % Sodium Chloride 1,000 ML 999 ML IV (00:09)
[2022-06-12] MEDS: ondansetron HCL 4 MG/2 ML VIAL IVPUSH (00:13)
[2022-06-12] MEDS: Ketorolac Tromethamine 30 MG/ML VIAL IVPUSH (00:13)
[2022-06-12] MEDS: cefTRIAXone sodium 1 GM in 0.9 % Sodium Chloride 50 ML IV (00:13)
[2022-06-12 00:14] LABS: Hematocrit 33.9 % (37.0-47.0); Hemoglobin 10.6 g/dl (12.0-16.0); Mean Corpuscular HGB Conc 31.3 g/dl (31.0-35.0); Mean Corpuscular Hemoglobin 24.8 pg (27.0-33.0); Mean Corpuscular Volume 79.2 fL (80.0-98.0); Mean Platelet Volume 11.9 fL (9.4-12.3); Platelet Count 174 X10*3/uL (160-400); Red Blood Count 4.28 X10*6/uL (4.20-5.50); Red Cell Distribution Width 16.7 % (11.0-16.0)
[2022-06-12 00:20] LABS: WBC ABN SCTR FOR CBC 1
[2022-06-12 00:32] LABS: Anion Gap 14 (12-20); Blood Urea Nitrogen 10 mg/dL (9-16); Calcium 8.9 mg/dL (8.4-10.2); Carbon Dioxide 26 mmol/L (22-29); Chloride 104 mmol/L (96-108); Creatinine Clr Calc Pharmacy 101.7; Estimated Glomerular Filt Rate > 60; Glucose Random 112 mg/dL (60-115); Potassium 3.7 mmol/L (3.3-5.1); Sodium 140 mmol/L (135-145)
[2022-06-12 00:50] LABS: Band Neutrophils Percent 7 % (3-5); Large Platelet PRESENT; Lymphocytes Percent Manual 6 % (20-40); Macrocytosis 1+ (5-14) /OIF; Microcytosis 1+ (5-14) /OIF; Monocytes Percent Manual 6 % (2-11); Neutrophils Percent Manual 81 % (45-73); Ovalocytes 1+ (5-14) /OIF; Platelet Estimate NORMAL (NORMAL); Platelet Morphology Comment NORMAL; RBC Morphology NOTED; Smudge Cells PRESENT; Stomatocytes 1+ (5-14) /OIF
[2022-06-12 00:52] LABS: Lymphocytes Absolute Manual 0.6 X10*3/uL (1.2-4.9); Monocytes Absolute Manual 0.6 X10*3/uL (0.1-1.2); Neutrophils Absolute Manual 9.1 X10*3/uL (2.0-8.3); White Blood Count 10.3 X10*3/uL (4.8-10.8)
== END 2022-06-12 01:48 | disposition home or self-care (01) ==
PROVIDERS: Emergency Provider Internal Medicine
DX: U07.1 COVID-19 (principal); N39.0 Urinary tract infection, site not specified; R07.89 Other chest pain; Z79.899 Other long term (current) drug therapy
CPT/HCPCS: 36415; 74176; 80048; 85007; 85027; 96374; 96375; 99283; 99284; J0696; J1885; J2405

== ENCOUNTER 2022-07-05 18:43 | Emergency (ER) | payer MEDICAID, SELFPAY ==
--- NOTE | ~2022-07-05 | XR_ITS ---
EXAMINATION: XR FOOT, RIGHT CLINICAL INFORMATION: Toe injury COMPARISON: Right toe radiographs 04/08/2008 TECHNIQUE: AP, lateral, and oblique views of the right foot. FINDINGS: No acute fracture or dislocation. Minimal sclerosis and slight deformity of the fifth toe proximal phalanx, consistent with remote healed fracture. Joint spaces throughout the foot are maintained. Lisfranc alignment is within normal limits. Small posterior calcaneal spur at the Achilles tendon insertion noted. XR/XR foot RT min 3V IMPRESSION: No acute fracture or dislocation.
[2022-07-05 20:23] VITALS: BP 106/76; PULSE 72; RESP 18; TEMP 37.2; O2SAT 99; BMI 23.5
--- NOTE | 2022-07-05 22:16 | ED_ITS ---
HPI - Extremity Injury (Lower) General Chief Complaint: Extremity Injury, Lower Stated Complaint: broken toe??? Time Seen by Provider: 07/05/22 21:54 Source: patient Mode of arrival: ambulatory Limitations: no limitations History of Present Illness HPI Narrative: This is a 36-year-old female no significant medical history presenting to the emergency department with right 2nd toe pain times few months. Patient tells me her toe has been bothering her intermittently for the past 2-3 months, she tells me she does not know if she injured this toe, she tells me that from time to time her toe will become swollen and painful, he tells me at this time pain is well controlled however sometimes it becomes swollen to the plantar aspect, she tells me her daughter is sick and needed an emergency department visit so she figured she would also get evaluated while she was here. She tells me she has been too busy to go to her PCP to be evaluated for this. She denies any trauma to the area that she recalls however unclear. Denies numbness, tingling, fevers, chills. No history of gout, pseudogout. MD complaint: other (Toe pain ) Related Data Previous Rx's Medication Instructions Recorded codeine 10 mg-guaifenesin 100 mg/5 10 ml PO Q6H PRN cough #237 mL 06/11/22 mL oral liquid ibuprofen 600 mg tablet 600 mg PO Q8H PRN pain #30 tabs 06/11/22 levofloxacin 500 mg tablet 500 mg PO DAILY 7 days #7 tabs 06/11/22 prednisone 20 mg tablet 20 mg PO DAILY 5 days #5 tabs 07/05/22 Allergies Allergy/AdvReac Type Severity Reaction Status Date / Time procaine AdvReac Unknown faints Verified 01/23/22 13:43 Review of Systems Review of Systems: Constitutional : No Weight loss, No Fever, No Chills, No Fatigue, No Malaise ENT/Mouth : No sore throat, No Rhinorrhea Eyes: No Eye Pain, No Swelling, No Redness Cardiovascular : No Chest Pain, No SOB, No Dyspnea on Exertion, No Orthopnea, No Edema, No Palpitations Respiratory : No Cough, No Sputum, No Wheezing Gastrointestinal : No Nausea, No Vomiting, No Diarrhea, No Constipation, No abdominal Pain, No Hematochezia, No Melena Genitourinary : No Dysuria, No Urinary Frequency, No Hematuria, Musculoskeletal : + joint pain, No Myalgias, No Joint Swelling Skin : No Skin Lesions, No rash Neuro : No Weakness, No Numbness, No Dizziness, No Headache Psych : No Anxiety/Panic, No Depression All other systems reviewed and are negative Yes all other systems are reviewed and are negative [facility] Past Medical History Attestation statement: The following information was validated with the patient. Source: old records reviewed and nursing notes reviewed Medical History No active medical problems Surgical History S/P breast biopsy, right Family History Family History Father H/O heart artery stent Cardiovascular disease Mother No problems noted. Social History Social History Patient Tobacco Use Status: Never used Tobacco Advance Directives: No Advance Directives Information Provided: No Physical Exam Vital Signs: Vital Signs: Last Vital Signs Temp 99.0 F 07/05/22 20:23 Pulse 72 07/05/22 20:23 Resp 18 07/05/22 20:23 BP 106/76 07/05/22 20:23 Pulse Ox 99 07/05/22 20:23 O2 Del Method 07/05/22 20:23 BMI result Body Mass Index 23.5 Vital signs stable Appearance: Alert.? Oriented X3.? No acute distress.? Head: Normocephalic, atraumatic, no step-offs or deformities Eyes: Pupils equal, round and reactive to light.? CVS: Normal heart rate and rhythm.? Pulses normal.? Respiratory: No respiratory distress.? Breath sounds normal.? Abdomen: Soft and nontender.? Skin: Skin warm and dry.? Normal skin color.? Normal skin turgor.? Extremities: No lower extremity edema.? No calf ttp. 5/5 strength to bilateral upper and lower extremities bilateral lower extremity digits within normal limits, full range of motion, normal sensation, capillary refill intact. No gross abnormalities, no distracting injuries. No pain with palpation. 2+ dorsalis pedis, posterior tibialis, anterior tibialis pulses equal bilateral. Back: No midline tenderness, no C-spine tenderness, full range of motion, no CVA tenderness bilaterally Neuro: Oriented X 3.? No motor deficit.? No sensory deficit. CN 2-12 intact . Patient ambulating with steady gait normal coordination, no limp. Course Reevaluation(s) Reevaluation #1: X-ray shows no acute fractures or dislocations. It does show remote healed fracture to the 5th tell however this is not consistent with patient's history and physical exam therefore I do not feel as though they are related. Will pr escribe prednisone in case this is an inflammatory arthritis. Advised return with new or worsening symptoms, will give her Orthopedics information for follow-up. Comfortable discharge home Time: 22:20 MDM - Extremity Injury (Lower) MDM Narrative Medical decision making narrative: 2199 36-year-old female presents with right 2nd toe pain for 2-3 months. Unsure if patient injured this toe. No recent injuries. Physical examination benign. Likely arthritis. This could be inflammatory arthritis, no signs of septic joint, gout or pseudogout. No evidence of cellulitis. No evidence of arterial or venous occlusion. Medical Records Attestation: I reviewed the patient's medical records. Lab Data Attestation: I reviewed the patient's lab results. Critical Care Time Critical Care Time Critical Care Time: No Discharge Plan Discharge Clinical Impression: Pain in toe Patient Disposition: Home, Self-Care Additional Instructions: Take your medications as prescribed. If you were prescribed antibiotics today, it is important that you take your medication to their entirety, do not skip any doses, do not finish them early. Follow-up with your primary care provider this week. Return to the emergency department with new or worsening symptoms. Such as fevers, chills, chest pain, shortness of breath, nausea, vomiting, dizziness, headache, vision changes, lethargy In case of emergency call 911 You can take ibuprofen every 6 hours, Tylenol every 4 as needed for pain or discomfort. XR/XR foot RT min 3V IMPRESSION: No acute fracture or dislocation. Prescriptions: New prednisone 20 mg tablet 20 mg PO DAILY 5 Days Qty: 5 0RF No Action levofloxacin 500 mg tablet 500 mg PO DAILY 7 Days Qty: 7 0RF codeine-guaifenesin 10-100 mg/5 mL liquid 10 ml PO Q6H PRN (Reason: cough) Qty: 237 0RF ibuprofen 600 mg tablet 600 mg PO Q8H PRN (Reason: pain) Qty: 30 0RF Referrals: [facility] [Provider Group] Carlene Calvo MD [Primary Care Provider] - 2 days
== END 2022-07-06 00:47 | disposition home or self-care (01) ==
PROVIDERS: Emergency Provider Emergency Medicine; PCP Family Medicine
DX: M79.674 Pain in right toe(s) (principal)
CPT/HCPCS: 73630; 99282; 99283

== ENCOUNTER 2022-08-07 09:38 | Emergency (ER) | payer MEDICAID, SELFPAY ==
--- NOTE | 2022-08-07 09:41 | ECG_ITS ---
Test Reason : cp Blood Pressure : / mmHG Vent. Rate : 080 BPM Atrial Rate : 080 BPM P-R Int : 130 ms QRS Dur : 078 ms QT Int : 388 ms P-R-T Axes : 026 020 005 degrees QTc Int : 447 ms Normal sinus rhythm Normal ECG When compared with ECG of 23-MAR-2022 16:01, No significant change was found Referred By: Generic ED Physician Electronically Signed By:RADU ALFONSO MD
[2022-08-07 09:52] VITALS: BP 116/74; PULSE 83; RESP 18; TEMP 37; O2SAT 98
[2022-08-07 10:06] LABS: Hemoglobin 10.9 g/dl (12.0-16.0); Mean Corpuscular HGB Conc 31.1 g/dl (31.0-35.0); Mean Corpuscular Hemoglobin 24.2 pg (27.0-33.0); Mean Corpuscular Volume 77.6 fL (80.0-98.0); Mean Platelet Volume 11.7 fL (9.4-12.3); Platelet Count 261 X10*3/uL (160-400); Red Blood Count 4.51 X10*6/uL (4.20-5.50); Red Cell Distribution Width 16.7 % (11.0-16.0)
[2022-08-07 10:09] LABS: WBC ABN SCTR FOR CBC 1
[2022-08-07 10:18] VITALS: BP 119/85; PULSE 74; RESP 20; TEMP 36.8; O2SAT 97; BMI 23.5
[2022-08-07 10:26] LABS: Band Neutrophils Percent 0 % (3-5); Basophils Percent Manual 3 % (0-2); Eosinophils Percent Manual 7 % (0-4); Lymphocytes Percent Manual 34 % (20-40); Monocytes Percent Manual 3 % (2-11); Neutrophils Percent Manual 53 % (45-73)
[2022-08-07 10:27] LABS: Hypochromasia 1+ (5-14) /OIF; Microcytosis 1+ (5-14) /OIF; Platelet Estimate NORMAL (NORMAL); Platelet Morphology Comment NORMAL; RBC Morphology NOTED
[2022-08-07 10:28] LABS: Basophils Abs Manual 0.2 X10*3/uL (0.0-0.2); Eosinophils Absolute Manual 0.4 X10*3/uL (0.0-0.4); Lymphocytes Absolute Manual 1.9 X10*3/uL (1.2-4.9); Monocytes Absolute Manual 0.2 X10*3/uL (0.1-1.2); White Blood Count 5.6 X10*3/uL (4.8-10.8)
[2022-08-07 10:35] LABS: Alanine Aminotransferase 9 U/L (0-31); Albumin Level 4.2 g/dL (3.5-5.0); Alkaline Phosphatase 52 U/L (39-117); Anion Gap 15 (12-20); Aspartate Amino Transferase 13 U/L (5-31); Bilirubin Direct 0.2 mg/dL (0.0-0.5); Bilirubin Total 0.5 mg/dL (0.0-1.0); Blood Urea Nitrogen 10 mg/dL (9-16); Calcium 9.1 mg/dL (8.4-10.2); Carbon Dioxide 23 mmol/L (22-29); Chloride 107 mmol/L (96-108); Creatinine Clr Calc Pharmacy 109.1; Estimated Glomerular Filt Rate > 60; Glucose Random 111 mg/dL (60-115); Lipase 30 U/L (8-78); Sodium 141 mmol/L (135-145); Total Protein 7.2 g/dL (6.5-8.0)
[2022-08-07 10:37] LABS: Troponin-I High Sensitivity < 3.5 ng/L (<3.5-17.0)
== END 2022-08-07 18:50 | disposition left against medical advice (07) ==
PROVIDERS: Emergency Provider Emergency Medicine; PCP Family Medicine
DX: R07.89 Other chest pain (principal); R42 Dizziness and giddiness; R11.2 Nausea with vomiting, unspecified; Z79.899 Other long term (current) drug therapy
CPT/HCPCS: 36415; 80048; 80076; 83690; 84484; 85007; 85027; 93005; 99283

== ENCOUNTER 2022-12-19 20:38 | Emergency (ER) | payer MEDICAID, SELFPAY ==
[2022-12-19 21:03] VITALS: BP 125/80; PULSE 107; RESP 18; TEMP 36.6; O2SAT 100; BMI 23.6
--- NOTE | 2022-12-19 21:13 | ED_ITS ---
HPI - Allergic Reaction General Chief complaint: Allergic Reaction Stated complaint: ?allergic reaction on face ,dizziness Time Seen by Provider: 12/19/22 21:09 Source: patient Mode of arrival: ambulatory Limitations: no limitations History of Present Illness HPI narrative: Patient comes to the emergency room complaining of a possible allergic reaction to nuts. Patient states that to her knowledge she has never been allergic to nuts. Patient ate a mixed bag of peanuts and notes approximately 2 hours ago, nothing happened, 1 hour ago, patient ate the 2nd half of the bag. Patient went to take a nap, within 15 minutes patient woke up with facial swelling and a bit of itching in her face. Patient states she has a weird sensation in the back of her throat. Patient denies trouble swallowing or difficulty breathing. Related Data Previous Rx's Medication Instructions Recorded codeine 10 mg-guaifenesin 100 mg/5 10 ml PO Q6H PRN cough #237 mL 06/11/22 mL oral liquid ibuprofen 600 mg tablet 600 mg PO Q8H PRN pain #30 tabs 06/11/22 levofloxacin 500 mg tablet 500 mg PO DAILY 7 days #7 tabs 06/11/22 prednisone 20 mg tablet 20 mg PO DAILY 5 days #5 tabs 07/05/22 epinephrine 0.3 mg/0.3 mL 0.3 mg (0.3 mL) IM Q4H PRN 12/20/22 injection, auto-injector (EpiPen) anaphylaxis #2 ea Allergies Allergy/AdvReac Type Severity Reaction Status Date / Time procaine AdvReac Unknown faints Verified 01/23/22 13:43 Review of Systems Review of Systems: Constitutional : No Weight loss, No Fever, No Chills, No Night Sweats, No Fatigue, No Malaise ENT/Mouth : No Hearing loss, No Ear Pain, No Nasal Congestion, No Sinus Pain, No Hoarseness, No sore throat, No Rhinorrhea, No Swallowing Difficulty Eyes: No Eye Pain, No Swelling, No Redness, No Foreign Body, No Discharge, No Vision Changes Cardiovascular : No Chest Pain, No SOB, No Dyspnea on Exertion, No Orthopnea, No Edema, No Palpitations Respiratory : No Cough, No Sputum, No Wheezing, No Smoke Exposure, No Dyspnea Gastrointestinal : No Nausea, No Vomiting, No Diarrhea, No Constipation, No abdominal Pain, No Hematochezia, No Melena Genitourinary : no irregular bleeding, No Dysuria, No Urinary Frequency, No Hematuria, No Urinary Incontinence, No Urgency, No Flank Pain, No Urinary Flow Changes, No Hesitancy Musculoskeletal : No joint pain, No Myalgias, No Joint Swelling Skin : Facial swelling Neuro : No Weakness, No Numbness, No Paresthesias, No Loss of Consciousness, No Dizziness, No Headache Psych : No Anxiety/Panic, No Depression, No SI/HI/AH/VH, No Social Issues, Heme/Lymph: No Bruising, No Bleeding,No Lymphadenopathy Endocrine : No Polyuria, No Polydipsia, No Temperature Intolerance [facility] Past Medical History Medical History No active medical problems Surgical History S/P breast biopsy, right Family History Family History Father H/O heart artery stent Cardiovascular disease Mother No problems noted. Social History Social History Patient Tobacco Use Status: Never used Tobacco Advance Directives: No Advance Directives Information Provided: No Physical Exam ED Vital Signs: Vital Signs - 24 hr 12/19/22 21:03 12/19/22 21:18 Temperature 97.9 F 98.0 F Pulse Rate 107 H 101 H Respiratory Rate 18 18 Blood Pressure 125/80 128/79 Pulse Oximetry 100 100 Oxygen Delivery Method Room Air Room Air BMI result Body Mass Index 23.6 Const Other: Appearance: Alert. Oriented X3. No acute distress. Eyes: Pupils equal, round and reactive to light. Mild periorbital edema ENT: Pharynx normal. No angioedema Neck: Normal inspection. Neck supple. No lymph nodes noted. No crepitus CVS: Normal heart rate and rhythm. Pulses normal. Normal S1 and S2 Respiratory: No respiratory distress. Breath sounds normal. No Wheezing. No rales Abdomen: Soft and nontender. No rigidity. No distention. Skin: Skin warm and dry. Normal skin color. Normal skin turgor. Extremities: No lower extremity edema. No Lacerations. No Rash Neuro: Oriented X 3. No motor deficit. No sensory deficit. Moving all extremities. No slurred speech. CN 2 through 12 grossly intact Psych: calm, cooperative, normal affect Course Course Course Narrative: -patient's vitals stable, no airway compromise -patient receiving IV fluids, diphenhydramine, famotidine and Solu-Medrol. Medications Administered Discontinued Medications Generic Name Dose Route Start Last Admin Trade Name Freq PRN Reason Stop Dose Admin Diphenhydramine HCl 50 mg 12/19/22 21:13 12/19/22 21:27 Diphenhydramine Hcl 50 Mg/Ml Vial IVPUSH 12/19/22 21:14 50 mg ONCE ONE Administration Famotidine 20 mg 12/19/22 21:13 12/19/22 21:27 Famotidine/Pf 20 Mg/2 Ml Vial IVPUSH 12/19/22 21:14 20 mg ONCE ONE Administration Sodium Chloride 1,000 mls @ 999 mls/hr 12/19/22 21:13 12/19/22 21:27 Ns IVCONT 12/19/22 22:13 999 mls/hr .Q1H1M ONE Administration Methylprednisolone Sodium Succinate 125 mg 12/19/22 21:13 12/19/22 21:27 Methylprednisolone Sod Succ 125 Mg/2 Ml Vial IVPUSH 12/19/22 21:14 125 mg ONCE ONE Administration Medical Decision Making Medical Decision Making MDM Narrative: -patient no longer having any symptoms. -patient along have any swelling, vitals stable. Differential Diagnosis Differential Diagnoses: The differential diagnosis associated with the presentation includes (Allergic reaction, facial edema) Discharge Plan Discharge Clinical Impression: Allergic reaction Patient Disposition: Home, Self-Care Instructions: Food Allergy (ED) Additional Instructions: Please follow-up with your primary care physician tomorrow. If you have any worsening or new symptoms, please return to the emergency room or call 911 Prescriptions: New epinephrine [EpiPen] 0.3 mg/0.3 mL auto-injector 0.3 mg IM Q4H PRN (Reason: anaphylaxis) Qty: 2 0RF No Action prednisone 20 mg tablet 20 mg PO DAILY 5 Days Qty: 5 0RF levofloxacin 500 mg tablet 500 mg PO DAILY 7 Days Qty: 7 0RF codeine-guaifenesin 10-100 mg/5 mL liquid 10 ml PO Q6H PRN (Reason: cough) Qty: 237 0RF ibuprofen 600 mg tablet 600 mg PO Q8H PRN (Reason: pain) Qty: 30 0RF
[2022-12-19 21:18] VITALS: BP 128/79; PULSE 101; RESP 18; TEMP 36.7; O2SAT 100
[2022-12-19] MEDS: 0.9 % Sodium Chloride 1,000 ML 999 ML IVCONT (21:27)
[2022-12-19] MEDS: diphenhydrAMINE HCL 50 MG/ML VIAL IVPUSH (21:27)
[2022-12-19] MEDS: Famotidine/PF 20 MG/2 ML VIAL IVPUSH (21:27)
[2022-12-19] MEDS: methylPREDNISolone Sod Succ 125 MG/2 ML VIAL IVPUSH (21:27)
[2022-12-20 00:09] VITALS: BP 113/73; PULSE 83; RESP 16; TEMP 37; O2SAT 97
== END 2022-12-20 00:26 | disposition home or self-care (01) ==
PROVIDERS: Emergency Provider Emergency Medicine; PCP Family Medicine
DX: L50.0 Allergic urticaria (principal); Z79.899 Other long term (current) drug therapy
CPT/HCPCS: 96374; 96375; 99284; J1200; J2930

== ENCOUNTER 2022-12-21 18:32 | Emergency (ER) | payer MEDICAID, SELFPAY ==
[2022-12-21 18:54] VITALS: BP 131/84; PULSE 68; RESP 16; TEMP 36.1; O2SAT 98; BMI 23.6
--- NOTE | 2022-12-21 18:56 | ED.GENADULT ---
HPI - General Adult General Chief complaint: General Medical <DMITRY Ivan - Last Filed: 12/21/22 18:58> Stated complaint: Dizzy, fatigue, doesnt feel well. <DMITRY Ivan - Last Filed: 12/21/22 18:58> Time Seen by Provider: 12/21/22 21:09 <DMITRY Ivan - Last Filed: 12/21/22 18:58> Source: patient <Narinder Méndez MD - Last Filed: 12/21/22 21:29> Mode of arrival: ambulatory <Narinder Méndez MD - Last Filed: 12/21/22 21:29> Limitations: no limitations <Narinder Méndez MD - Last Filed: 12/21/22 21:29> History of Present Illness HPI narrative: Patient was seen here 2 days ago for allergic reaction to nuts got better now today she is complaining which is vertiginous feeling rotation feeling in tinnitus especially while turning head to the left <Narinder Méndez MD - Last Filed: 12/21/22 21:29> Related Data Home medications: Previous Rx's Medication Instructions Recorded codeine 10 mg-guaifenesin 100 mg/5 10 ml PO Q6H PRN cough #237 mL 06/11/22 mL oral liquid ibuprofen 600 mg tablet 600 mg PO Q8H PRN pain #30 tabs 06/11/22 levofloxacin 500 mg tablet 500 mg PO DAILY 7 days #7 tabs 06/11/22 prednisone 20 mg tablet 20 mg PO DAILY 5 days #5 tabs 07/05/22 epinephrine 0.3 mg/0.3 mL 0.3 mg (0.3 mL) IM Q4H PRN 12/20/22 injection, auto-injector (EpiPen) anaphylaxis #2 ea meclizine 25 mg tablet 25 mg PO TID PRN dizziness #20 tabs 12/21/22 <DMITRY Ivan - Last Filed: 12/21/22 18:58> Allergies/adverse reactions: Allergies Allergy/AdvReac Type Severity Reaction Status Date / Time nut - unspecified Allergy Anaphylaxis Verified 12/21/22 18:59 procaine AdvReac Unknown faints Verified 12/21/22 18:53 <DMITRY Ivan - Last Filed: 12/21/22 18:58> Review of Systems Review of Systems: Yes all other systems are reviewed and are negative <Narinder Méndez MD - Last Filed: 12/21/22 21:29> [facility] Past Medical History Medical History: Medical History No active medical problems <DMITRY Iavn - Last Filed: 12/21/22 18:58> Surgical History: Surgical History S/P breast biopsy, right <DMITRY Ivan - Last Filed: 12/21/22 18:58> Family History Family History: Family History Father H/O heart artery stent Cardiovascular disease Mother No problems noted. <DMITRY Ivan - Last Filed: 12/21/22 18:58> Social History Social History: Social History Alcohol intake: former Patient Tobacco Use Status: Never used Tobacco Advance Directives: No Advance Directives Information Provided: No <DMITRY Ivan - Last Filed: 12/21/22 18:58> Physical Exam ED Vital Signs: Vital Signs - 24 hr 12/21/22 18:54 Temperature 97.0 F Pulse Rate 68 Respiratory Rate 16 Blood Pressure 131/84 Pulse Oximetry 98 Oxygen Delivery Method Room Air BMI result Body Mass Index 23.6 <DMITRY Ivan - Last Filed: 12/21/22 18:58> Vital Signs - 24 hr 12/21/22 18:54 Temperature 97.0 F Pulse Rate 68 Respiratory Rate 16 Blood Pressure 131/84 Pulse Oximetry 98 Oxygen Delivery Method Room Air BMI result Body Mass Index 23.6 <Narinder Méndez MD - Last Filed: 12/21/22 21:29> Appearance: Alert. Oriented X3. No acute distress. Eyes: PERRLA, No Nystagmus ENT: Pharynx normal. Oral Mucosa moist tympanic membrane intact bilateral Neck: Normal inspection. Neck supple. CVS: Normal heart rate and rhythm. Pulses normal. Respiratory: No respiratory distress. Abdomen: Soft and nontender. Skin: Skin warm and dry. Normal skin color. Normal skin turgor. Extremities: No lower extremity edema. No calf tenderness Neuro: Oriented X 3. No motor deficit. No sensory deficit.No cerebellar signs , cranial nerves II-XII intact <Narinder Méndez MD - Last Filed: 12/21/22 21:29> Course Course Course Narrative: RME performed by Marce Lieberman PA-C. Patient is a 37 year old female presenting to the emergency department feeling generally unwell. Patient states that a few days ago she had an allergic reaction to a nut, was sent home with an epi pen and after she was given the medications she was given here, she has been feeling lightheaded and dizzy. Patient states she also feels at times it is hard for her to swallow. Patient denies any repeated exposure. Labs ordered. Patient placed back in the waiting room pending results and room availability. <DMITRY Ivan - Last Filed: 12/21/22 18:58> Medical Decision Making Medical Decision Making MDM Narrative: Patient clinically with benign positional vertigo clinically stable ambulatory with steady gait will discharge patient home on meclizine <Narinder Méndez MD - Last Filed: 12/21/22 21:29> Lab Data [facility] Lab Attestation statement: I reviewed the patient's lab results. <Narinder Méndez MD - Last Filed: 12/21/22 21:29> Result Diagrams: 12/21/22 19:11 12/21/22 19:11 <DMITRY Ivan - Last Filed: 12/21/22 18:58> Labs: Lab Results 12/21/22 12/21/22 12/21/22 Range/Units 19:11 19:11 19:11 WBC 7.7 (4.8-10.8) X10*3/uL RBC 4.46 (4.20-5.50) X10*6/uL Hgb 9.8 L (12.0-16.0) g/dl Hct 33.0 L (37.0-47.0) % MCV 74.0 L (80.0-98.0) fL MCH 22.0 L (27.0-33.0) pg MCHC 29.7 L (31.0-35.0) g/dl RDW 17.4 H (11.0-16.0) % Plt Count 259 (160-400) X10*3/uL MPV 11.4 (9.4-12.3) fL Immature Gran % (Auto) 0.3 (0.0-0.4) % Neut % (Auto) 48.5 (45-73) % Lymph % (Auto) 39.8 (20-40) % Haakon % (Auto) 8.0 (2-11) % Eos % (Auto) 2.5 (0-4) % Baso % (Auto) 0.9 (0-2) % Lymph # (Auto) 3.0 (1.2-4.9) X10*3/uL Haakon # (Auto) 0.6 (0.1-1.2) X10*3/uL Eos # (Auto) 0.2 (0.0-0.4) X10*3/uL Baso # (Auto) 0.1 (0.0-0.2) X10*3/uL Abs Immat Gran (auto) 0.02 (0.00-0.03) X10*3/uL Absolute Neuts (auto) 3.7 (2.0-8.3) x10*3/uL Absolute Nucleated RBC 0.000 (0.0-0.012) X10*3/uL Nucleated RBC % (auto) 0.0 (0.0-0.2) /100WBC ESR 7 (0-20) MM/HR Sodium 141 (135-145) mmol/L Potassium 3.5 (3.3-5.1) mmol/L Chloride 108 (96-108) mmol/L Carbon Dioxide 24 (22-29) mmol/L Anion Gap 13 (12-20) BUN 15 (9-16) mg/dL Creatinine 0.72 (0.5-1.4) mg/dL Estim Creat Clear Calc 105.0 Estimated GFR > 60 Random Glucose 111 (60-115) mg/dL Calcium 9.2 (8.4-10.2) mg/dL Magnesium 1.9 (1.6-2.6) mg/dL Total Bilirubin 0.4 (0.0-1.0) mg/dL AST 11 (5-31) U/L ALT 12 (0-31) U/L Alkaline Phosphatase 45 (39-117) U/L C-Reactive Protein < 0.10 (< or = 0.50) mg/dL Total Protein 6.8 (6.5-8.0) g/dL Albumin 4.0 (3.5-5.0) g/dL Beta HCG, Quant < 2 mIU/mL <DMITRY Ivan - Last Filed: 12/21/22 18:58> Lab Results 12/21/22 12/21/22 12/21/22 Range/Units 19:11 19:11 19:11 WBC 7.7 (4.8-10.8) X10*3/uL RBC 4.46 (4.20-5.50) X10*6/uL Hgb 9.8 L (12.0-16.0) g/dl Hct 33.0 L (37.0-47.0) % MCV 74.0 L (80.0-98.0) fL MCH 22.0 L (27.0-33.0) pg MCHC 29.7 L (31.0-35.0) g/dl RDW 17.4 H (11.0-16.0) % Plt Count 259 (160-400) X10*3/uL MPV 11.4 (9.4-12.3) fL Immature Gran % (Auto) 0.3 (0.0-0.4) % Neut % (Auto) 48.5 (45-73) % Lymph % (Auto) 39.8 (20-40) % Haakon % (Auto) 8.0 (2-11) % Eos % (Auto) 2.5 (0-4) % Baso % (Auto) 0.9 (0-2) % Lymph # (Auto) 3.0 (1.2-4.9) X10*3/uL Haakon # (Auto) 0.6 (0.1-1.2) X10*3/uL Eos # (Auto) 0.2 (0.0-0.4) X10*3/uL Baso # (Auto) 0.1 (0.0-0.2) X10*3/uL Abs Immat Gran (auto) 0.02 (0.00-0.03) X10*3/uL Absolute Neuts (auto) 3.7 (2.0-8.3) x10*3/uL Absolute Nucleated RBC 0.000 (0.0-0.012) X10*3/uL Nucleated RBC % (auto) 0.0 (0.0-0.2) /100WBC ESR 7 (0-20) MM/HR Sodium 141 (135-145) mmol/L Potassium 3.5 (3.3-5.1) mmol/L Chloride 108 (96-108) mmol/L Carbon Dioxide 24 (22-29) mmol/L Anion Gap 13 (12-20) BUN 15 (9-16) mg/dL Creatinine 0.72 (0.5-1.4) mg/dL Estim Creat Clear Calc 105.0 Estimated GFR > 60 Random Glucose 111 (60-115) mg/dL Calcium 9.2 (8.4-10.2) mg/dL Magnesium 1.9 (1.6-2.6) mg/dL Total Bilirubin 0.4 (0.0-1.0) mg/dL AST 11 (5-31) U/L ALT 12 (0-31) U/L Alkaline Phosphatase 45 (39-117) U/L C-Reactive Protein < 0.10 (< or = 0.50) mg/dL Total Protein 6.8 (6.5-8.0) g/dL Albumin 4.0 (3.5-5.0) g/dL Beta HCG, Quant < 2 mIU/mL <Narinder Méndez MD - Last Filed: 12/21/22 21:29> Discharge Plan Discharge Clinical Impression: Benign paroxysmal positional vertigo <DMITRY Ivan - Last Filed: 12/21/22 18:58> Patient Disposition: Home, Self-Care <DMITRY Ivan - Last Filed: 12/21/22 18:58> Instructions: Benign Paroxysmal Positional Vertigo (ED) <DMITRY Ivan - Last Filed: 12/21/22 18:58> Additional Instructions: Care and cautions advised Meclizine 1 tablet every 8 hours as needed for dizziness Follow with PCP as needed <DMITRY Ivan - Last Filed: 12/21/22 18:58> Prescriptions: New meclizine 25 mg tablet 25 mg PO TID PRN (Reason: dizziness) Qty: 20 0RF No Action prednisone 20 mg tablet 20 mg PO DAILY 5 Days Qty: 5 0RF epinephrine [EpiPen] 0.3 mg/0.3 mL auto-injector 0.3 mg IM Q4H PRN (Reason: anaphylaxis) Qty: 2 0RF levofloxacin 500 mg tablet 500 mg PO DAILY 7 Days Qty: 7 0RF codeine-guaifenesin 10-100 mg/5 mL liquid 10 ml PO Q6H PRN (Reason: cough) Qty: 237 0RF ibuprofen 600 mg tablet 600 mg PO Q8H PRN (Reason: pain) Qty: 30 0RF <DMITRY Ivan - Last Filed: 12/21/22 18:58> Print Language: Turkmen <DMITRY Ivan - Last Filed: 12/21/22 18:58>
[2022-12-21 19:19] LABS: WBC ABN SCTR 1
[2022-12-21 19:39] LABS: Alanine Aminotransferase 12 U/L (0-31); Alkaline Phosphatase 45 U/L (39-117); Anion Gap 13 (12-20); Aspartate Amino Transferase 11 U/L (5-31); Bilirubin Total 0.4 mg/dL (0.0-1.0); Blood Urea Nitrogen 15 mg/dL (9-16); C Reactive Protein < 0.10 mg/dL (< or = 0.50); Calcium 9.2 mg/dL (8.4-10.2); Carbon Dioxide 24 mmol/L (22-29); Chloride 108 mmol/L (96-108); Estimated Glomerular Filt Rate > 60; Glucose Random 111 mg/dL (60-115); HCG Quantitative < 2 mIU/mL; Magnesium 1.9 mg/dL (1.6-2.6); Potassium 3.5 mmol/L (3.3-5.1); Sodium 141 mmol/L (135-145); Total Protein 6.8 g/dL (6.5-8.0)
[2022-12-21 19:56] LABS: Erythrocyte Sedimentation Rate 7 MM/HR (0-20)
[2022-12-21 20:09] LABS: SCAN SMEAR FLAG 1
[2022-12-21 20:10] LABS: Basophils Absolute Auto 0.1 X10*3/uL (0.0-0.2); Basophils Percent Auto 0.9 % (0-2); Eosinophils Absolute Auto 0.2 X10*3/uL (0.0-0.4); Eosinophils Percent Auto 2.5 % (0-4); Hemoglobin 9.8 g/dl (12.0-16.0); Imm Gran Abs Auto 0.02 X10*3/uL (0.00-0.03); Imm Gran Pct Auto 0.3 % (0.0-0.4); Lymphocytes Percent Auto 39.8 % (20-40); Mean Corpuscular HGB Conc 29.7 g/dl (31.0-35.0); Monocytes Absolute Auto 0.6 X10*3/uL (0.1-1.2); Neutrophils Absolute Auto 3.7 x10*3/uL (2.0-8.3); Neutrophils Percent Auto 48.5 % (45-73); Platelet Count 259 X10*3/uL (160-400); Red Blood Count 4.46 X10*6/uL (4.20-5.50); Red Cell Distribution Width 17.4 % (11.0-16.0)
[2022-12-21 20:11] LABS: MANUAL DIFF FLAG NO; Mean Platelet Volume 11.4 fL (9.4-12.3); PLT ABN DIST 1; WBC ABN SCTR FOR CBC 1; White Blood Count 7.7 X10*3/uL (4.8-10.8)
[2022-12-21] MEDS: Meclizine HCl 25 MG TABLET PO (22:42)
== END 2022-12-21 22:43 | disposition home or self-care (01) ==
PROVIDERS: Physician Assistant Medical; Emergency Provider Internal Medicine; PCP Family Medicine
DX: H81.10 Benign paroxysmal vertigo, unspecified ear (principal)
CPT/HCPCS: 36415; 80053; 83735; 84702; 85025; 85652; 86140; 99283; 99284

== ENCOUNTER → 2023-01-23 15:01 | Outpatient (BNVA) | payer MEDICAID, SELFPAY | PROVIDERS: PCP Family Medicine; Visit Provider Internal Medicine | DX: R00.2 Palpitations (principal) | CPT/HCPCS: 93005; 99212 ==

== ENCOUNTER 2023-02-08 14:51 | Emergency (ER) | payer MEDICAID, SELFPAY ==
--- NOTE | ~2023-02-08 | XR_ITS ---
EXAMINATION: XR chest 2V CLINICAL INFORMATION: Reason for Exam chest pain COMPARISON: Prior chest x-ray May 2022. TECHNIQUE: XR chest 2V Lungs and Noa: Both lungs are clear. Pleura: Normal. Costophrenic angles are sharp. No pneumothorax. Heart: The heart is normal in size. Mediastinum: The mediastinum is within normal limits.. Bones: Skeletal structures included are normal for patient's age. XR/XR chest 2V IMPRESSION: No radiographic evidence of acute cardiopulmonary disease.
[2023-02-08 14:53] VITALS: BP 135/90; PULSE 79; RESP 18; TEMP 36.8; O2SAT 99; BMI 22.7
--- NOTE | 2023-02-08 14:53 | ED.CHESTPAIN ---
HPI - Chest Pain General Chief Complaint: General Medical <DMITRY Owens - Last Filed: 02/08/23 15:26> Stated Complaint: chest pain dizzy <DMITRY Owens - Last Filed: 02/08/23 15:26> Time Seen by Provider: 02/08/23 16:12 <DMITRY Owens - Last Filed: 02/08/23 15:26> Source: patient, RN notes reviewed and old records reviewed <ZABRINA Salvador - Last Filed: 02/09/23 01:08> Mode of arrival: ambulatory <ZABRINA Salvador - Last Filed: 02/09/23 01:08> Limitations: no limitations <ZABRINA Salvador - Last Filed: 02/09/23 01:08> History of Present Illness MD complaint: other (Palpitations) <ZABRINA Salvador - Last Filed: 02/09/23 01:08> Related Data Home Medications: Previous Rx's Medication Instructions Recorded ibuprofen 600 mg tablet 600 mg PO Q8H PRN pain #30 tabs 06/11/22 epinephrine 0.3 mg/0.3 mL 0.3 mg (0.3 mL) IM Q4H PRN 12/20/22 injection, auto-injector (EpiPen) anaphylaxis #2 ea meclizine 25 mg tablet 25 mg PO TID PRN dizziness #20 tabs 12/21/22 ondansetron 4 mg disintegrating 4 mg PO Q8H #7 tabs 02/08/23 tablet <DMITRY Owens - Last Filed: 02/08/23 15:26> Allergies/Adverse Reactions: Allergies Allergy/AdvReac Type Severity Reaction Status Date / Time nut - unspecified Allergy Anaphylaxis Verified 01/23/23 15:12 procaine AdvReac Unknown faints Verified 01/23/23 15:12 <DMITRY Owens - Last Filed: 02/08/23 15:26> Review of Systems Constitutional: Constitutional: Denies weight gain and Denies weight loss <ZABRINA Salvador - Last Filed: 02/09/23 01:08> ENT: Reports system reviewed and no additional complaints, except as documented, Denies dysphagia and Denies odynophagia <Nay So, FOUNDER AND PRESIDENT-BC - Last Filed: 02/09/23 01:08> Cardiovascular: Cardiovascular: Reports other (PALPITATIONS) <Nay So FOUNDER AND PRESIDENT-BC - Last Filed: 02/09/23 01:08> Respiratory: Respiratory: Reports no additional respiratory complaints <Nay Paul So, FOUNDER AND PRESIDENT-BC - Last Filed: 02/09/23 01:08> Gastrointestinal: Gastrointestinal: Denies abdominal pain, Denies belching, Denies melena, Denies bloating, Denies change in bowel habits, Denies dysphagia, Denies excessive flatus, Denies dyspepsia, Denies heartburn, Denies diarrhea, Denies loose stools, Denies nausea, Denies odynophagia and Denies vomiting <Nay Paul So, FOUNDER AND PRESIDENT-BC - Last Filed: 02/09/23 01:08> Genitourinary: Genitourinary: Reports no additional female genitourinary complaints <Nay So, FOUNDER AND PRESIDENT-BC - Last Filed: 02/09/23 01:08> Musculoskeletal: Musculoskeletal: Reports no additional musculoskeletal complaints <Nay So, FOUNDER AND PRESIDENT-BC - Last Filed: 02/09/23 01:08> Neurologic: Reports system reviewed and no additional complaints, except as documented <Nay So FOUNDER AND PRESIDENT-BC - Last Filed: 02/09/23 01:08> Psychiatric: Psychiatric: Reports no additional psychiatric complaints <Nay So, FOUNDER AND PRESIDENT-BC - Last Filed: 02/09/23 01:08> Endocrine: Endocrine: Reports no additional endocrine complaints <Nay So, FOUNDER AND PRESIDENT-BC - Last Filed: 02/09/23 01:08> PMFSH Past Medical History Medical History: Medical History No active medical problems <DMITRY Owens - Last Filed: 02/08/23 15:26> Surgical History: Surgical History S/P breast biopsy, right <DMITRY Owens - Last Filed: 02/08/23 15:26> Family History Family History: Family History Father H/O heart artery stent Cardiovascular disease Mother No problems noted. <DMITRY Owens - Last Filed: 02/08/23 15:26> Social History Social History: Social History Alcohol intake: former Patient Tobacco Use Status: Never used Tobacco Advance Directives: No Advance Directives Information Provided: Yes <DMITRY Owens - Last Filed: 02/08/23 15:26> Physical Exam Vital Signs: Vital Signs: Last Vital Signs Temp 98.3 F 02/08/23 14:53 Pulse 79 02/08/23 14:53 Resp 18 02/08/23 14:53 BP 135/90 H 02/08/23 14:53 Pulse Ox 99 02/08/23 14:53 O2 Del Method Room Air 02/08/23 14:53 BMI result Body Mass Index 22.7 <DMITRY Owens - Last Filed: 02/08/23 15:26> Vital Signs: Last Vital Signs Temp 98.3 F 02/08/23 14:53 Pulse 79 02/08/23 14:53 Resp 18 02/08/23 14:53 BP 135/90 H 02/08/23 14:53 Pulse Ox 99 02/08/23 14:53 O2 Del Method Room Air 02/08/23 14:53 BMI result Body Mass Index 22.7 <ZABRINA Salvador - Last Filed: 02/09/23 01:08> Const: General: healthy appearing, no acute distress and well developed <ZABRINA Salvador - Last Filed: 02/09/23 01:08> Nutritional Appearance: well nourished <ZABRINA Salvador - Last Filed: 02/09/23 01:08> Orientation/consciousness: patient oriented x3 <ZABRINA Salvador - Last Filed: 02/09/23 01:08> HEENT: Head: Yes normal to inspection, Yes normocephalic and Yes atraumatic <ZABRINA Salvador - Last Filed: 02/09/23 01:08> Face and sinus: Yes normal facial exam <MONTY Salvador-BC - Last Filed: 02/09/23 01:08> Mouth: Normal oral and palatal mucosa present <Nay oS MONTY-BC - Last Filed: 02/09/23 01:08> Throat: Yes posterior oropharynx normal, Yes tonsils normal and Yes uvula midline <Nay Ordoñezrizwana OMNTY-BC - Last Filed: 02/09/23 01:08> Eyes: General: appearance normal, both eyes and all related structures <Nay So MONTY-BC - Last Filed: 02/09/23 01:08> Neck: Neck: Yes normal visual inspection, Yes full ROM and Yes trachea midline <MONTY Salvador-BC - Last Filed: 02/09/23 01:08> Thyroid: Thyroid normal <Nay Ordoñezrizwana MONTY-BC - Last Filed: 02/09/23 01:08> Resp: Effort & Inspection: normal respiratory effort, able to speak in complete sentences, no tracheal deviation and symmetric chest movement <Nay So MONTY-BC - Last Filed: 02/09/23 01:08> Auscultation: clear to auscultation bilaterally <Nay OrdoñezoMONTY-BC - Last Filed: 02/09/23 01:08> Cardio: Rate: regular rate <Nay OrdoñezoMONTY-BC - Last Filed: 02/09/23 01:08> Heart sounds: S1 normal heart sound present, S2 normal heart sound present, no gallops and no murmurs <Nay Ordoñezrizwana FOUNDER AND PRESIDENT-BC - Last Filed: 02/09/23 01:08> GI: Inspection: Yes normal to inspection and No distended <Nay Ordoñezrizwana FOUNDER AND PRESIDENT-BC - Last Filed: 02/09/23 01:08> Palpation (GI): Soft to palpation, not firm, nontender and No hepatosplenomegaly present <Nay Ordoñezrizwana FOUNDER AND PRESIDENT-BC - Last Filed: 02/09/23 01:08> Auscultation: normal bowel sounds <Nay Ordoñezo, FOUNDER AND PRESIDENT-BC - Last Filed: 02/09/23 01:08> : General: Yes no CVA tenderness <Nay D Judah, FOUNDER AND PRESIDENT-BC - Last Filed: 02/09/23 01:08> Back/Spine/Pelvis: Back: no CVA tenderness <Nay D Judah, FOUNDER AND PRESIDENT-BC - Last Filed: 02/09/23 01:08> Skin: General skin exam: elasticity normal, turgor normal and dry skin <Nay D Judah, FOUNDER AND PRESIDENT-BC - Last Filed: 02/09/23 01:08> Neuro: General: patient oriented x3 <Nay D Judah, FOUNDER AND PRESIDENT-BC - Last Filed: 02/09/23 01:08> Psych: Appearance: grossly normal <Nay D Judah, FOUNDER AND PRESIDENT-BC - Last Filed: 02/09/23 01:08> Mental Status: mental status grossly normal <Nay D Judah, FOUNDER AND PRESIDENT-BC - Last Filed: 02/09/23 01:08> Speech and movement: Normal speech and movement present <Nay D Judah, FOUNDER AND PRESIDENT-BC - Last Filed: 02/09/23 01:08> Affect: normal affect <Nay D Judah, FOUNDER AND PRESIDENT-BC - Last Filed: 02/09/23 01:08> Attitude: cooperative <Nay D Judah, FOUNDER AND PRESIDENT-BC - Last Filed: 02/09/23 01:08> Thought process: Normal thought process present <Nay D Judah, FOUNDER AND PRESIDENT-BC - Last Filed: 02/09/23 01:08> Thought content: Normal thought content present <Nay D Judah, FOUNDER AND PRESIDENT-BC - Last Filed: 02/09/23 01:08> Insight: Good insight present (Psych) <Nay D Judah, FOUNDER AND PRESIDENT-BC - Last Filed: 02/09/23 01:08> Judgement: Good judgement present (Psych) <Nay D Judah, FOUNDER AND PRESIDENT-BC - Last Filed: 02/09/23 01:08> Course Course Course Narrative: This is an RME: Additional HPI, ROS, PE not included below will be deferred to primary provider. This is a 18-mpik-tcp-female, hx of heart palpitations, who presents to the emergency department, with complaints of intermittent chest pain, sob, dizziness, weakness. She currently has COVID, diagnosed 5 days ago. Pt has had no recent travel, surgeries, hospitalizations. She states that she has a hx of blood clots in June when she had COVID, was on blood thinners, was seen at [facility] then. She is not on blood thinners now. Patient is not hypoxic or tachycardic. Pt is stable. Will return back to the waiting room until treatment room becomes available. Obtained records from [facility], pt had +ddimer but negative chest CTA Plan: Labs, EKG, chest x-ray ordered. <DMITRY Owens - Last Filed: 02/08/23 15:26> Medical Decision Making Medical Decision Making MDM Narrative: This is a 86-etey-hzf-female, hx of heart palpitations, who presents to the emergency department, with complaints of intermittent chest pain, sob, dizziness, weakness. She currently has COVID, diagnosed 5 days ago. Pt has had no recent travel, surgeries, hospitalizations. She states that she has a hx of blood clots in June when she had COVID, was on blood thinners, was seen at [facility]. She is not on blood thinners now. Patient is not hypoxic or tachycardic. Pt is stable. Will return back to the waiting room until treatment room becomes available. Obtained records from [facility], pt had +ddimer but negative chest CTA Plan: Labs, EKG, chest x-ray ordered. Patient is here today for complaining of feeling tired, chest pressure, shortness of breath, dizziness, weakness. Patient is reporting diarrhea, no appetite. Patient was diagnosed 5 days ago with COVID. 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 EKG chest x-ray and labs reviewed and they are all normal. [facility] records reviewed. Patient will be discharged home with Zofran to help her with nausea. Patient was encouraged to rest drink plenty fluids and follow-up with PCP. <ZABRINA Salvador - Last Filed: 02/09/23 01:08> Differential Diagnosis Differential Diagnoses: The differential diagnosis associated with the presentation includes <ZABRINA Salvador - Last Filed: 02/09/23 01:08> Upper respiratory infection, COVID, <Nay So, FOUNDER AND PRESIDENT-BC - Last Filed: 02/09/23 01:08> Lab Data MDM Lab Attestation statement: I reviewed the patient's lab results. <Nay So, FOUNDER AND PRESIDENT-BC - Last Filed: 02/09/23 01:08> Result Diagrams: 02/08/23 15:14 02/08/23 15:14 <DMITRY Owens - Last Filed: 02/08/23 15:26> Labs: Lab Results 02/08/23 02/08/23 02/08/23 Range/Units 15:14 15:14 15:14 WBC 5.7 (4.8-10.8) X10*3/uL RBC 4.59 (4.20-5.50) X10*6/uL Hgb 10.4 L (12.0-16.0) g/dl Hct 34.2 L (37.0-47.0) % MCV 74.5 L (80.0-98.0) fL MCH 22.7 L (27.0-33.0) pg MCHC 30.4 L (31.0-35.0) g/dl RDW 17.7 H (11.0-16.0) % Plt Count 254 (160-400) X10*3/uL MPV 12.1 (9.4-12.3) fL Immature Gran % (Auto) Cancelled Neut % (Auto) Cancelled Lymph % (Auto) Cancelled [place] % (Auto) Cancelled Eos % (Auto) Cancelled Baso % (Auto) Cancelled Lymph # (Auto) Cancelled [place] # (Auto) Cancelled Eos # (Auto) Cancelled Baso # (Auto) Cancelled Abs Immat Gran (auto) Cancelled Absolute Neuts (auto) Cancelled Absolute Nucleated RBC 0.000 (0.0-0.012) X10*3/uL Nucleated RBC % (auto) 0.0 (0.0-0.2) /100WBC Neutrophils % (Manual) 54 (45-73) % Band Neutrophils % 1 L (3-5) % Lymphocytes % (Manual) 35 (20-40) % Monocytes % (Manual) 7 (2-11) % Eosinophils % (Manual) 3 (0-4) % Abs Neuts (Manual) 3.1 (2.0-8.3) X10*3/uL Lymphocytes # (Manual) 2.0 (1.2-4.9) X10*3/uL Monocytes # (Manual) 0.4 (0.1-1.2) X10*3/uL Eosinophils # (Manual) 0.2 (0.0-0.4) X10*3/uL Platelet Estimate NORMAL (NORMAL) Plt Morphology Comment NORMAL RBC Morphology NOTED Target Cells 1+ (5-14) /OIF Ovalocytes 1+ (5-14) /OIF PT (10.0-13.1) SEC INR (0.9-1.1) APTT (26.0-36.4) SEC Sodium 137 (135-145) mmol/L Potassium 4.3 D (3.3-5.1) mmol/L Chloride 106 (96-108) mmol/L Carbon Dioxide 26 (22-29) mmol/L Anion Gap 9 L (12-20) BUN 13 (9-16) mg/dL Creatinine 0.76 (0.5-1.4) mg/dL Estim Creat Clear Calc 99.5 Estimated GFR > 60 Random Glucose 118 H (60-115) mg/dL Calcium 9.4 (8.4-10.2) mg/dL Magnesium 2.0 (1.6-2.6) mg/dL Total Bilirubin 0.6 (0.0-1.0) mg/dL Direct Bilirubin 0.2 (0.0-0.5) mg/dL AST 14 (5-31) U/L ALT 12 (0-31) U/L Alkaline Phosphatase 56 (39-117) U/L Troponin I High Sens < 2.7 (<3.5-17.0) ng/L Total Protein 7.3 (6.5-8.0) g/dL Albumin 4.3 (3.5-5.0) g/dL 02/08/23 Range/Units 15:14 WBC (4.8-10.8) X10*3/uL RBC (4.20-5.50) X10*6/uL Hgb (12.0-16.0) g/dl Hct (37.0-47.0) % MCV (80.0-98.0) fL MCH (27.0-33.0) pg MCHC (31.0-35.0) g/dl RDW (11.0-16.0) % Plt Count (160-400) X10*3/uL MPV (9.4-12.3) fL Immature Gran % (Auto) Neut % (Auto) Lymph % (Auto) [place] % (Auto) Eos % (Auto) Baso % (Auto) Lymph # (Auto) [place] # (Auto) Eos # (Auto) Baso # (Auto) Abs Immat Gran (auto) Absolute Neuts (auto) Absolute Nucleated RBC (0.0-0.012) X10*3/uL Nucleated RBC % (auto) (0.0-0.2) /100WBC Neutrophils % (Manual) (45-73) % Band Neutrophils % (3-5) % Lymphocytes % (Manual) (20-40) % Monocytes % (Manual) (2-11) % Eosinophils % (Manual) (0-4) % Abs Neuts (Manual) (2.0-8.3) X10*3/uL Lymphocytes # (Manual) (1.2-4.9) X10*3/uL Monocytes # (Manual) (0.1-1.2) X10*3/uL Eosinophils # (Manual) (0.0-0.4) X10*3/uL Platelet Estimate (NORMAL) Plt Morphology Comment RBC Morphology Target Cells /OIF Ovalocytes /OIF PT 12.7 (10.0-13.1) SEC INR 1.1 (0.9-1.1) APTT 30.0 (26.0-36.4) SEC Sodium (135-145) mmol/L Potassium (3.3-5.1) mmol/L Chloride (96-108) mmol/L Carbon Dioxide (22-29) mmol/L Anion Gap (12-20) BUN (9-16) mg/dL Creatinine (0.5-1.4) mg/dL Estim Creat Clear Calc Estimated GFR Random Glucose (60-115) mg/dL Calcium (8.4-10.2) mg/dL Magnesium (1.6-2.6) mg/dL Total Bilirubin (0.0-1.0) mg/dL Direct Bilirubin (0.0-0.5) mg/dL AST (5-31) U/L ALT (0-31) U/L Alkaline Phosphatase (39-117) U/L Troponin I High Sens (<3.5-17.0) ng/L Total Protein (6.5-8.0) g/dL Albumin (3.5-5.0) g/dL <DMITRY Owens - Last Filed: 02/08/23 15:26> Lab Results 02/08/23 02/08/23 02/08/23 Range/Units 15:14 15:14 15:14 WBC 5.7 (4.8-10.8) X10*3/uL RBC 4.59 (4.20-5.50) X10*6/uL Hgb 10.4 L (12.0-16.0) g/dl Hct 34.2 L (37.0-47.0) % MCV 74.5 L (80.0-98.0) fL MCH 22.7 L (27.0-33.0) pg MCHC 30.4 L (31.0-35.0) g/dl RDW 17.7 H (11.0-16.0) % Plt Count 254 (160-400) X10*3/uL MPV 12.1 (9.4-12.3) fL Immature Gran % (Auto) Cancelled Neut % (Auto) Cancelled Lymph % (Auto) Cancelled [place] % (Auto) Cancelled Eos % (Auto) Cancelled Baso % (Auto) Cancelled Lymph # (Auto) Cancelled [place] # (Auto) Cancelled Eos # (Auto) Cancelled Baso # (Auto) Cancelled Abs Immat Gran (auto) Cancelled Absolute Neuts (auto) Cancelled Absolute Nucleated RBC 0.000 (0.0-0.012) X10*3/uL Nucleated RBC % (auto) 0.0 (0.0-0.2) /100WBC Neutrophils % (Manual) 54 (45-73) % Band Neutrophils % 1 L (3-5) % Lymphocytes % (Manual) 35 (20-40) % Monocytes % (Manual) 7 (2-11) % Eosinophils % (Manual) 3 (0-4) % Abs Neuts (Manual) 3.1 (2.0-8.3) X10*3/uL Lymphocytes # (Manual) 2.0 (1.2-4.9) X10*3/uL Monocytes # (Manual) 0.4 (0.1-1.2) X10*3/uL Eosinophils # (Manual) 0.2 (0.0-0.4) X10*3/uL Platelet Estimate NORMAL (NORMAL) Plt Morphology Comment NORMAL RBC Morphology NOTED Target Cells 1+ (5-14) /OIF Ovalocytes 1+ (5-14) /OIF PT (10.0-13.1) SEC INR (0.9-1.1) APTT (26.0-36.4) SEC Sodium 137 (135-145) mmol/L Potassium 4.3 D (3.3-5.1) mmol/L Chloride 106 (96-108) mmol/L Carbon Dioxide 26 (22-29) mmol/L Anion Gap 9 L (12-20) BUN 13 (9-16) mg/dL Creatinine 0.76 (0.5-1.4) mg/dL Estim Creat Clear Calc 99.5 Estimated GFR > 60 Random Glucose 118 H (60-115) mg/dL Calcium 9.4 (8.4-10.2) mg/dL Magnesium 2.0 (1.6-2.6) mg/dL Total Bilirubin 0.6 (0.0-1.0) mg/dL Direct Bilirubin 0.2 (0.0-0.5) mg/dL AST 14 (5-31) U/L ALT 12 (0-31) U/L Alkaline Phosphatase 56 (39-117) U/L Troponin I High Sens < 2.7 (<3.5-17.0) ng/L Total Protein 7.3 (6.5-8.0) g/dL Albumin 4.3 (3.5-5.0) g/dL 02/08/23 Range/Units 15:14 WBC (4.8-10.8) X10*3/uL RBC (4.20-5.50) X10*6/uL Hgb (12.0-16.0) g/dl Hct (37.0-47.0) % MCV (80.0-98.0) fL MCH (27.0-33.0) pg MCHC (31.0-35.0) g/dl RDW (11.0-16.0) % Plt Count (160-400) X10*3/uL MPV (9.4-12.3) fL Immature Gran % (Auto) Neut % (Auto) Lymph % (Auto) [place] % (Auto) Eos % (Auto) Baso % (Auto) Lymph # (Auto) [place] # (Auto) Eos # (Auto) Baso # (Auto) Abs Immat Gran (auto) Absolute Neuts (auto) Absolute Nucleated RBC (0.0-0.012) X10*3/uL Nucleated RBC % (auto) (0.0-0.2) /100WBC Neutrophils % (Manual) (45-73) % Band Neutrophils % (3-5) % Lymphocytes % (Manual) (20-40) % Monocytes % (Manual) (2-11) % Eosinophils % (Manual) (0-4) % Abs Neuts (Manual) (2.0-8.3) X10*3/uL Lymphocytes # (Manual) (1.2-4.9) X10*3/uL Monocytes # (Manual) (0.1-1.2) X10*3/uL Eosinophils # (Manual) (0.0-0.4) X10*3/uL Platelet Estimate (NORMAL) Plt Morphology Comment RBC Morphology Target Cells /OIF Ovalocytes /OIF PT 12.7 (10.0-13.1) SEC INR 1.1 (0.9-1.1) APTT 30.0 (26.0-36.4) SEC Sodium (135-145) mmol/L Potassium (3.3-5.1) mmol/L Chloride (96-108) mmol/L Carbon Dioxide (22-29) mmol/L Anion Gap (12-20) BUN (9-16) mg/dL Creatinine (0.5-1.4) mg/dL Estim Creat Clear Calc Estimated GFR Random Glucose (60-115) mg/dL Calcium (8.4-10.2) mg/dL Magnesium (1.6-2.6) mg/dL Total Bilirubin (0.0-1.0) mg/dL Direct Bilirubin (0.0-0.5) mg/dL AST (5-31) U/L ALT (0-31) U/L Alkaline Phosphatase (39-117) U/L Troponin I High Sens (<3.5-17.0) ng/L Total Protein (6.5-8.0) g/dL Albumin (3.5-5.0) g/dL <Nay OrdoñezMONTY wagonerARRON - Last Filed: 02/09/23 01:08> Independent Interpretation I performed an independent interpretation of an: EKG <Nay MONTY NowakARRON - Last Filed: 02/09/23 01:08> Radiology Impression Discussion of test interpretation with radiology: I have reviewed the radiologist's reading. <NayZABRINA Rob - Last Filed: 02/09/23 01:08> Radiologist Impression: ECHNIQUE: XR chest 2V Lungs and Noa: Both lungs are clear. Pleura: Normal. Costophrenic angles are sharp. No pneumothorax. Heart: The heart is normal in size. Mediastinum: The mediastinum is within normal limits.. Bones: Skeletal structures included are normal for patient's age. XR/XR chest 2V IMPRESSION: No radiographic evidence of acute cardiopulmonary disease. <Nay D JudahMONTY wagonerARRON - Last Filed: 02/09/23 01:08> External Record Review External record reviewed: Outpatient record, Prior outpatient labs and Outside ED record <Nay D JudahMONTY wagonerARRON - Last Filed: 02/09/23 01:08> Prescription Management I considered prescription management with: Other (Anti nausea medication) <NayTANIA RobSHONNA - Last Filed: 02/09/23 01:08> Discharge Plan Discharge Clinical Impression: COVID-19, Dizziness <DMITRY Owens - Last Filed: 02/08/23 15:26> Patient Disposition: Home, Self-Care <DMITRY Owens - Last Filed: 02/08/23 15:26> Instructions: COVID-19 (Coronavirus Disease 2019) (ED) <DMITRY Owens - Last Filed: 02/08/23 15:26> Additional Instructions: You were seen here today for nausea, dizziness, weakness. You do have COVID. You will be given script for Zofran to help you with your nausea please rest and make sure you drink plenty fluids. Please return to emergency department if his symptoms will get worse or you experience any additional concerning symptoms <DMITRY Owens - Last Filed: 02/08/23 15:26> Prescriptions: New ondansetron 4 mg tablet,disintegrating 4 mg PO Q8H Qty: 7 0RF No Action epinephrine [EpiPen] 0.3 mg/0.3 mL auto-injector 0.3 mg IM Q4H PRN (Reason: anaphylaxis) Qty: 2 0RF ibuprofen 600 mg tablet 600 mg PO Q8H PRN (Reason: pain) Qty: 30 0RF meclizine 25 mg tablet 25 mg PO TID PRN (Reason: dizziness) Qty: 20 0RF <DMITRY Owens - Last Filed: 02/08/23 15:26> Referrals: Carlene Calvo MD [Primary Care Provider] - <DMITRY Owens - Last Filed: 02/08/23 15:26> Stand Alone Forms: Work/School Release <DMITRY Owens - Last Filed: 02/08/23 15:26> Interventions: ED Discharge Assessment Last Done: 02/08/23 16:54 <DMITRY Owens - Last Filed: 02/08/23 15:26> Discharge Date/Time: 02/08/23 16:55 <DMITRY Owens - Last Filed: 02/08/23 15:26>
--- NOTE | 2023-02-08 14:55 | ECG_ITS ---
Test Reason : chest pain Blood Pressure : / mmHG Vent. Rate : 072 BPM Atrial Rate : 072 BPM P-R Int : 144 ms QRS Dur : 076 ms QT Int : 402 ms P-R-T Axes : 049 014 013 degrees QTc Int : 440 ms Normal sinus rhythm Normal ECG When compared with ECG of 07-AUG-2022 09:44, No significant change was found Referred By: Brooke Anton Electronically Signed By:Jack Ravi
[2023-02-08 15:29] LABS: Hematocrit 34.2 % (37.0-47.0); Hemoglobin 10.4 g/dl (12.0-16.0); Mean Corpuscular HGB Conc 30.4 g/dl (31.0-35.0); Mean Corpuscular Hemoglobin 22.7 pg (27.0-33.0); Mean Corpuscular Volume 74.5 fL (80.0-98.0); Mean Platelet Volume 12.1 fL (9.4-12.3); Platelet Count 254 X10*3/uL (160-400); Red Blood Count 4.59 X10*6/uL (4.20-5.50); Red Cell Distribution Width 17.7 % (11.0-16.0)
[2023-02-08 15:30] LABS: INTERNATIONAL NORM RATIO 1.1 (0.9-1.1); Prothrombin Time 12.7 SEC (10.0-13.1)
[2023-02-08 15:37] LABS: PLT ABN DIST 1; WBC ABN SCTR FOR CBC 1; White Blood Count 5.7 X10*3/uL (4.8-10.8)
[2023-02-08 15:43] LABS: Alanine Aminotransferase 12 U/L (0-31); Albumin Level 4.3 g/dL (3.5-5.0); Alkaline Phosphatase 56 U/L (39-117); Anion Gap 9 (12-20); Aspartate Amino Transferase 14 U/L (5-31); Bilirubin Direct 0.2 mg/dL (0.0-0.5); Bilirubin Total 0.6 mg/dL (0.0-1.0); Blood Urea Nitrogen 13 mg/dL (9-16); Calcium 9.4 mg/dL (8.4-10.2); Carbon Dioxide 26 mmol/L (22-29); Chloride 106 mmol/L (96-108); Creatinine Clr Calc Pharmacy 99.5; Estimated Glomerular Filt Rate > 60; Glucose Random 118 mg/dL (60-115); Potassium 4.3 mmol/L (3.3-5.1); Sodium 137 mmol/L (135-145)
[2023-02-08 15:46] LABS: Total Protein 7.3 g/dL (6.5-8.0)
[2023-02-08 15:51] LABS: Troponin-I High Sensitivity < 2.7 ng/L (<3.5-17.0)
[2023-02-08 16:28] LABS: Band Neutrophils Percent 1 % (3-5); Eosinophils Absolute Manual 0.2 X10*3/uL (0.0-0.4); Eosinophils Percent Manual 3 % (0-4); Lymphocytes Percent Manual 35 % (20-40); Monocytes Absolute Manual 0.4 X10*3/uL (0.1-1.2); Monocytes Percent Manual 7 % (2-11); Neutrophils Absolute Manual 3.1 X10*3/uL (2.0-8.3); Neutrophils Percent Manual 54 % (45-73)
[2023-02-08 16:31] LABS: Ovalocytes 1+ (5-14) /OIF; RBC Morphology NOTED
[2023-02-08 16:33] LABS: Platelet Estimate NORMAL (NORMAL); Platelet Morphology Comment NORMAL; Target Cells 1+ (5-14) /OIF
== END 2023-02-08 16:55 | disposition home or self-care (01) ==
PROVIDERS: Physician Assistant Medical; Emergency Provider Internal Medicine; PCP Family Medicine
DX: U07.1 COVID-19 (principal); R42 Dizziness and giddiness
CPT/HCPCS: 36415; 71046; 80048; 80076; 83735; 84484; 85007; 85027; 85610; 85730; 93005; 99283

== ENCOUNTER 2023-03-25 03:46 | Emergency (ER) | payer MEDICAID, SELFPAY ==
[2023-03-25 03:54] VITALS: BMI 22.7
[2023-03-25 04:00] VITALS: BP 130/86; PULSE 85; RESP 14; TEMP 36.9; O2SAT 98
--- NOTE | 2023-03-25 04:39 | ED_ITS ---
HPI - General Adult General Chief complaint: General Medical Stated complaint: Spider bite Time Seen by Provider: 03/25/23 04:39 Source: patient Mode of arrival: ambulatory Limitations: no limitations History of Present Illness HPI narrative: Patient case with possible spider bite in left axillary area patient says that she is seeing spiders at home and was sleeping when window open with arms up and something bit her and earlier today and noticed slight redness in that area without any significant swelling or redness Related Data Previous Rx's Medication Instructions Recorded ibuprofen 600 mg tablet 600 mg PO Q8H PRN pain #30 tabs 06/11/22 epinephrine 0.3 mg/0.3 mL 0.3 mg (0.3 mL) IM Q4H PRN 12/20/22 injection, auto-injector (EpiPen) anaphylaxis #2 ea meclizine 25 mg tablet 25 mg PO TID PRN dizziness #20 tabs 12/21/22 ondansetron 4 mg disintegrating 4 mg PO Q8H #7 tabs 02/08/23 tablet Allergies Allergy/AdvReac Type Severity Reaction Status Date / Time nut - unspecified Allergy Anaphylaxis Verified 01/23/23 15:12 procaine AdvReac Unknown faints Verified 01/23/23 15:12 Review of Systems Review of Systems: Yes all other systems are reviewed and are negative PMFSH Past Medical History Medical History No active medical problems Surgical History S/P breast biopsy, right Family History Family History Father H/O heart artery stent Cardiovascular disease Mother No problems noted. Social History Social History Alcohol intake: former Patient Tobacco Use Status: Never used Tobacco Smoked in Last 30 Days: No Use of substances other than those prescribed or required for medical reasons: No Advance Directives: No Advance Directives Information Provided: Yes Patient : No Physical Exam ED Vital Signs: Vital Signs - 24 hr 03/25/23 04:00 03/25/23 04:53 Temperature 98.4 F 98.8 F Pulse Rate 85 72 Respiratory Rate 14 12 Blood Pressure 130/86 114/73 Pulse Oximetry 98 98 Oxygen Delivery Method Room Air Room Air BMI result Body Mass Index 22.7 Skin Other: Small 2 mm insect bite aman the left armpit no significant swelling no signs of cellulitis Medical Decision Making Medical Decision Making [facility] Narrative: Patient with small insect bite noninfective nontoxic look possible spider bite patient advised follow with PCP or call ED in case redness increases in next 3 days Discharge Plan Discharge Clinical Impression: Spider bite Patient Disposition: Home, Self-Care Instructions: Insect Bite or Sting (ED) Additional Instructions: Report to the ER if worsening redness or swelling You had minor spider bite which is nontoxic , which will heal in 2 - 3 days Prescriptions: No Action epinephrine [EpiPen] 0.3 mg/0.3 mL auto-injector 0.3 mg IM Q4H PRN (Reason: anaphylaxis) Qty: 2 0RF ibuprofen 600 mg tablet 600 mg PO Q8H PRN (Reason: pain) Qty: 30 0RF meclizine 25 mg tablet 25 mg PO TID PRN (Reason: dizziness) Qty: 20 0RF ondansetron 4 mg tablet,disintegrating 4 mg PO Q8H Qty: 7 0RF Interventions: ED Discharge Assessment Last Done: 03/25/23 04:55 Discharge Date/Time: 03/25/23 04:59
[2023-03-25 04:53] VITALS: BP 114/73; PULSE 72; RESP 12; TEMP 37.1; O2SAT 98
--- NOTE | 2023-03-25 04:54 | PC.NURSE ---
pt ambulatory at discharge. vss. pt denies pain. pt provided with discharge packet. pt verbalized understanding of discharge plan.
== END 2023-03-25 04:59 | disposition home or self-care (01) ==
LOC: HO.ED 04:58
PROVIDERS: Emergency Provider Internal Medicine; PCP Family Medicine
DX: T63.301A Toxic effect of unspecified spider venom, accidental (unintentional), initial encounter (principal); Y92.9 Unspecified place or not applicable
CPT/HCPCS: 99282; 99284

== ENCOUNTER 2023-05-29 19:35 | Outpatient (REF) | payer MEDICAID, SELFPAY ==
[2023-05-29 21:19] LABS: Influenza A PCR NEGATIVE (Negative); Influenza B PCR NEGATIVE (Negative); Resp Syncy Virus RNA Qual PCR NEGATIVE (Negative); SARS COV2 PCR INHOUSE NEGATIVE (Negative)
== END 2023-05-29 19:36 | disposition home or self-care (01) ==
LOC: HO.HHCLNP 19:35
PROVIDERS: Visit Provider Registered Nurse
DX: Z20.822 Contact with and (suspected) exposure to COVID-19 (principal); J02.9 Acute pharyngitis, unspecified
CPT/HCPCS: 0241U; 87070

== ENCOUNTER 2023-09-11 14:42 | Outpatient (REF) | payer MEDICAID, SELFPAY ==
[2023-09-11 17:17] LABS: Basophils Absolute Auto 0.1 X10*3/uL (0.0-0.2); Basophils Percent Auto 1.4 % (0-2); Eosinophils Absolute Auto 0.4 X10*3/uL (0.0-0.4); Eosinophils Percent Auto 5.1 % (0-4); Hematocrit 32.4 % (37.0-47.0); Hemoglobin 9.4 g/dl (12.0-16.0); Imm Gran Abs Auto 0.03 X10*3/uL (0.00-0.03); Imm Gran Pct Auto 0.4 % (0.0-0.4); Lymphocytes Absolute Auto 2.1 X10*3/uL (1.2-4.9); MANUAL DIFF FLAG SCAN; Mean Corpuscular Hemoglobin 20.9 pg (27.0-33.0); Monocytes Absolute Auto 0.6 X10*3/uL (0.1-1.2); Monocytes Percent Auto 7.8 % (2-11); Neutrophils Absolute Auto 3.9 x10*3/uL (2.0-8.3); Neutrophils Percent Auto 55.3 % (45-73); Platelet Count 262 X10*3/uL (160-400); Red Cell Distribution Width 18.6 % (11.0-16.0); SCAN SMEAR FLAG 1
[2023-09-11 17:18] LABS: PLT ABN DIST 1
[2023-09-11 17:26] LABS: Iron 19 mcg/dL (30-160); Percent Iron Saturation 5 % (15-50); Total Iron Binding Capacity 349 mcg/dL (228-428); Unsaturated Iron Binding 330 ug/dL
[2023-09-11 17:33] LABS: Appearance Urine Turbid; Color Urine Yellow; Glucose Urine UA Negative (Negative); Leukocyte Esterase Urine Small (1+) (Negative); Nitrite Urine Positive (Negative); Specific Gravity - Urine 1.025 (1.005-1.025); UMIC TRIGGER UACC YES; Urine Blood Negative (Negative); Urine Ketones Trace mg/dL (Negative); Urine Protein Negative (Neg-Trace)
[2023-09-11 17:34] LABS: SLIDE REVIEW VERIFIED
[2023-09-11 17:38] LABS: Bacteria Urine 4+ (None Seen); Hyaline Casts Urine 0-2 /LPF (0-2); RBC Urine 0-2 /HPF (0-2); UACC Culture Trigger YES
[2023-09-11 17:41] LABS: TSH reflex Free T4 1.38 uIU/mL (0.32-4.0); Vitamin D 25-OH Total 21.1 ng/mL (>30)
[2023-09-11 17:47] LABS: Vitamin B12 308 pg/mL (200-900)
== END 2023-09-11 14:43 | disposition home or self-care (01) ==
LOC: HO.CHCLDS 14:42
PROVIDERS: Visit Provider Pediatrics
DX: D50.0 Iron deficiency anemia secondary to blood loss (chronic) (principal); R35.0 Frequency of micturition
CPT/HCPCS: 36415; 81001; 82306; 82607; 83540; 84443; 85025; 87086; 87088; 87186

== ENCOUNTER 2023-09-22 12:39 | Emergency (ER) | payer MEDICAID, SELFPAY ==
--- NOTE | ~2023-09-22 | CT_ITS ---
EXAMINATION: CT ABDOMEN AND PELVIS WITH CONTRAST CLINICAL INFORMATION: Periumbilical abdominal pain. COMPARISON: 06/12/2022 TECHNIQUE: Multidetector volumetric images were obtained from the superior aspect of the liver through the pubic symphysis following administration 85 mL of Omnipaque 350 intravenous contrast. Sagittal and coronal reformatted images were obtained on the technologist's workstation. Oral contrast: No This CT examination was performed using dose optimization techniques as appropriate, variously including the following: *Automated exposure control *Adjustment of mA and/or kV according to patient size (this includes techniques or standardized protocols for targeted exams where dose is matched to indication/reason for exam; i.e. extremities or head) *Use of iterative reconstruction technique DLP: 525 mGy-cm FINDINGS: LUNG BASES: The visualized lung bases are unremarkable. LIVER, GALLBLADDER, AND BILIARY TREE: The liver is normal in size and contour. Scattered hepatic hypodensities too small to characterize. No biliary ductal dilatation is present. The gallbladder is unremarkable with no evidence of radiopaque gallstones, gallbladder wall thickening, or obvious pericholecystic inflammatory changes. PANCREAS: No ductal dilatation. SPLEEN: Not enlarged. ADRENAL GLANDS: No adrenal mass. KIDNEYS AND URETERS: The kidneys are are symmetric in size and enhancement. Right renal cyst. No further imaging follow-up is needed. No hydronephrosis, hydroureter, or calculi seen. No perinephric stranding. BLADDER: Unremarkable. GASTROINTESTINAL TRACT: Wall thickening of small bowel loops in the central/midabdomen. There is fluid distending the distal small bowel and proximal colon. No small bowel obstruction. ABDOMINAL WALL: No significant hernia is appreciated. LYMPH NODES: Numerous subcentimeter retroperitoneal and mesenteric lymph nodes. VASCULAR: Normal caliber abdominal aorta. Mesenteric hyperemia. PELVIC VISCERA: Intrauterine device is in place. Involuting corpus luteum in the left ovary. OSSEOUS STRUCTURES: No destructive bone lesions. CT/CT abdomen pelvis w IV con IMPRESSION: Small bowel wall thickening with fluid distending the distal small bowel and proximal colon. Mesenteric hyperemia. This most likely represents an enteritis. Infectious and inflammatory etiologies should be considered. Numerous subcentimeter retroperitoneal mesenteric lymph nodes are likely on a reactive basis.
[2023-09-22 12:41] VITALS: BP 113/68; PULSE 99; RESP 18; TEMP 36.9; O2SAT 96; BMI 24.2
--- NOTE | 2023-09-22 12:54 | ED_ITS ---
HPI - General Adult General Chief complaint: Abdominal Pain Stated complaint: Vomiting/Diarrhea/Body aches Time Seen by Provider: 09/22/23 15:00 Source: patient, RN notes reviewed and old records reviewed Mode of arrival: ambulatory History of Present Illness HPI narrative: 37-year-old female with no significant past medical history presenting to the ED complaining of chills, abdominal pain, nausea, vomiting, diarrhea, myalgias and inability to tolerate p.o. since yesterday. Also reports right flank pain. Denies fever, suspicious food intake, recent travel, sick contacts, dysuria/hematuria, vaginal bleeding/discharge Related Data Previous Rx's Medication Instructions Recorded ibuprofen 600 mg tablet 600 mg PO Q8H PRN pain #30 tabs 06/11/22 epinephrine 0.3 mg/0.3 mL 0.3 mg (0.3 mL) IM Q4H PRN 12/20/22 injection, auto-injector (EpiPen) anaphylaxis #2 ea meclizine 25 mg tablet 25 mg PO TID PRN dizziness #20 tabs 12/21/22 ondansetron 4 mg disintegrating 4 mg PO Q8H #7 tabs 02/08/23 tablet ondansetron 4 mg disintegrating 4 mg PO Q8H PRN nausea and 09/22/23 tablet vomiting #20 tabs Allergies Allergy/AdvReac Type Severity Reaction Status Date / Time nut - unspecified Allergy Anaphylaxis Verified 09/22/23 12:44 procaine AdvReac Unknown faints Verified 09/22/23 12:44 Review of Systems 2 Review of Systems: Constitutional: No Fever, No Chills ENT/Mouth: No Ear Pain, No Nasal Congestion, No sore throat, No Rhinorrhea, No Swallowing Difficulty Cardiovascular: No Chest Pain, No SOB Respiratory: No Cough, No Sputum, No Wheezing Gastrointestinal: + Nausea, + Vomiting, + Diarrhea, No Constipation, + Abdominal pain Genitourinary: No Dysuria, No Urinary Frequency, No Hematuria, No Urinary Incontinence/retention,No Flank Pain Musculoskeletal: No joint pain, No Myalgias, No Joint Swelling Skin: No Skin Lesions, No rash Neuro: No Weakness Yes all other systems are reviewed and are negative Constitutional: Constitutional: Reports as per [facility] Past Medical History Attestation statement: The following information was validated with the patient. Source: old records reviewed Medical History No active medical problems Surgical History S/P breast biopsy, right Family History Family History Father H/O heart artery stent Cardiovascular disease Mother No problems noted. Social History Social History Alcohol intake: former Patient Tobacco Use Status: Never used Tobacco Smoked in Last 30 Days: No Use of substances other than those prescribed or required for medical reasons: No Advance Directives: No Advance Directives Information Provided: No Physical Exam ED Vital Signs: Vital Signs - 24 hr 09/22/23 12:41 09/22/23 15:22 09/22/23 15:23 Temperature 98.5 F Pulse Rate 99 91 93 Respiratory Rate 18 Blood Pressure 113/68 106/70 110/70 Pulse Oximetry 96 Oxygen Delivery Method Room Air 09/22/23 15:24 Temperature Pulse Rate 107 H Respiratory Rate Blood Pressure 112/73 Pulse Oximetry Oxygen Delivery Method BMI result Body Mass Index 24.2 Const General: cooperative, healthy appearing and no acute distress Orientation/consciousness: patient oriented x3 Limitations: no limitations HENMT Head: Yes normal to inspection and Yes atraumatic Ears: hearing grossly normal bilaterally General nose exam: Normal external nose present Face and sinus: Yes normal facial exam Eyes General: appearance normal, both eyes and all related structures EOM: EOMs intact bilaterally Neck Neck: Yes normal visual inspection and Yes no meningeal signs Resp Effort & Inspection: normal respiratory effort and no respiratory distress Auscultation: clear to auscultation bilaterally Cardio Rate: regular rate Heart sounds: S1 normal heart sound present and S2 normal heart sound present GI Inspection: Yes normal to inspection Palpation (GI): Soft to palpation, Tenderness to palpation present (GI) periumbilically; with no rebound tenderness, no guarding and not rigid General: Yes CVA tenderness on the right Back/Spine/Pelvis Back: CVA tenderness Skin Rashes: no rashes Wounds: no wounds Neuro General: patient oriented x3, tone normal and no meningeal signs Cranial nerves: Yes CN's II-XII intact bilaterally Gait exam (Neuro): Normal gait present Extrem General: Yes normal to inspection Course Course Course Narrative: Patient complains nausea vomiting and diarrhea as well as feeling somewhat dizzy Vitals are normal Labs are ordered This rapid medical exam pending full evaluation by ER provider -1526--no leukocytosis. Labs otherwise reassuring. COVID and influenza negative -UA contaminated with 11-20 epithelials, + wbc's & leuk esterase -1630--ED care transferred to [facility] pending CT, p.o. challenge, and dispo per results Reevaluation(s) Reevaluation #1: Patient received in sign-out at change in shift pending CT scan of the abdomen pelvis, repeat UA. Patient's CT scan shows likely gastroenteritis of infectious or inflammatory etiology. I discussed the patient. She asked if she still had a cyst on her liver and right kidney which significant does not fracture multiple small hepatic lesions and a right renal cyst. This was discussed with the patient as well. She is stable for discharge time. She has normal body 2nd UA thus far. We will await culture Time: 16:52 Medications Administered Discontinued Medications Generic Name Dose Route Start Last Admin Trade Name Freq PRN Reason Stop Dose Admin Al Hydroxide/Mg Hydroxide 30 ml 09/22/23 15:14 09/22/23 15:38 Magnesium Hydrox/Alum Hydrox 30 Ml Oral.Susp PO 09/22/23 15:15 30 ml ONCE ONE Administration Famotidine 20 mg 09/22/23 15:14 09/22/23 15:39 Famotidine/Pf 20 Mg/2 Ml Vial IVPUSH 09/22/23 15:15 20 mg ONCE ONE Administration Sodium Chloride 1,000 mls @ 999 mls/hr 09/22/23 15:15 09/22/23 15:38 Ns IV 09/22/23 16:15 999 mls/hr .Q1H1M VELIA Administration Iohexol 85 ml 09/22/23 16:18 09/22/23 16:18 Iohexol 350 Mg/Ml 100 Ml Infus..Btl IV 09/22/23 16:19 85 ml ONCE ONE Administration Ketorolac Tromethamine 15 mg 09/22/23 15:14 09/22/23 15:39 Ketorolac Tromethamine 15 Mg/Ml Vial IVPUSH 09/22/23 15:15 15 mg ONCE ONE Administration Medical Decision Making Medical Decision Making MDM Narrative: 37-year-old female with no significant past medical history presenting to the ED complaining of chills, abdominal pain, nausea, vomiting, diarrhea, myalgias and inability to tolerate p.o. since yesterday. On exam vital signs stable, NAD, nontoxic appearing, abdomen soft with periumbilical tenderness, no rebound or guarding, mild right CVAT also noted. Concern for gastroenteritis vs food poisoning vs colitis/diverticulitis or appendicitis vs pyelo vs renal stone. Lower suspicion for ovarian pathology/torsion or ischemic bowel Plan: Labs, UA, CT AP, IVF, pain control, re-evaluate Please refer to course for remaining clinical decision making, interpretation of labs/imaging results, and discussions with consultants and/or family members. Differential Diagnosis Differential Diagnoses: The differential diagnosis associated with the presentation includes As above Admission/Observation Consideration of admission/observation: Escalation of care including admission/observation considered Lab Data [facility] Lab Attestation statement: I reviewed the patient's lab results. 09/22/23 13:27 09/22/23 13:27 Labs: Lab Results 09/22/23 09/22/23 Range/Units 13:27 15:31 WBC 10.8 (4.8-10.8) X10*3/uL RBC 4.85 (4.20-5.50) X10*6/uL Hgb 10.2 L (12.0-16.0) g/dl Hct 34.4 L (37.0-47.0) % MCV 70.9 L (80.0-98.0) fL MCH 21.0 L (27.0-33.0) pg MCHC 29.7 L (31.0-35.0) g/dl RDW 18.9 H (11.0-16.0) % Plt Count 233 (160-400) X10*3/uL MPV Not Reportable Immature Gran % (Auto) 0.2 (0.0-0.4) % Neut % (Auto) 82.2 H (45-73) % Lymph % (Auto) 6.1 L (20-40) % [place] % (Auto) 8.1 (2-11) % Eos % (Auto) 3.2 (0-4) % Baso % (Auto) 0.2 (0-2) % Lymph # (Auto) 0.7 L (1.2-4.9) X10*3/uL [place] # (Auto) 0.9 (0.1-1.2) X10*3/uL Eos # (Auto) 0.3 (0.0-0.4) X10*3/uL Baso # (Auto) 0.0 (0.0-0.2) X10*3/uL Abs Immat Gran (auto) 0.02 (0.00-0.03) X10*3/uL Absolute Neuts (auto) 8.9 H (2.0-8.3) x10*3/uL Absolute Nucleated RBC 0.000 (0.0-0.012) X10*3/uL Nucleated RBC % (auto) 0.0 (0.0-0.2) /100WBC Smear Tech's Comments VERIFIED Sodium 137 (135-145) mmol/L Potassium 3.7 (3.3-5.1) mmol/L Chloride 106 (96-108) mmol/L Carbon Dioxide 24 (22-29) mmol/L Anion Gap 11 L (12-20) BUN 11 (9-16) mg/dL Creatinine 0.66 (0.5-1.4) mg/dL Estim Creat Clear Calc 114.6 Estimated GFR > 60 Random Glucose 97 (60-115) mg/dL Calcium 8.9 (8.4-10.2) mg/dL Magnesium 1.9 (1.6-2.6) mg/dL Total Bilirubin 0.7 (0.0-1.0) mg/dL Direct Bilirubin 0.3 (0.0-0.5) mg/dL AST 14 (5-31) U/L ALT 10 (0-31) U/L Alkaline Phosphatase 59 (39-117) U/L Troponin I High Sens < 2.7 (<3.5-17.0) ng/L Total Protein 7.6 (6.5-8.0) g/dL Albumin 4.2 (3.5-5.0) g/dL Lipase 28 (8-78) U/L Beta HCG, Quant < 2 mIU/mL Urine Color Yellow Urine Appearance Clear Urine pH 6.5 (5.0-9.0) Ur Specific [place] 1.025 (1.005-1.025) Urine Protein Negative (Neg-Trace) mg/dL Urine Glucose (UA) Negative (Negative) mg/dL Urine Ketones Negative (Negative) mg/dL Urine Blood Trace H (Negative) Urine Nitrite Negative (Negative) Ur Leukocyte Esterase Small (1+) H (Negative) Urine RBC 0-2 (0-2) /HPF Urine WBC 6-10 H (0-5) /HPF Ur Squamous Epith Cells 11-20 (0-2) /HPF Urine Bacteria Trace (None Seen) Hyaline Casts 0-2 (0-2) /LPF Urine Test NEGATIVE (NEGATIVE) COVID-19 (QUINTIN) Negative (Negative) COVID-19 Clin Com See Note Influenza Type A (ERIK) Negative (Negative) Influenza Type B (ERIK) Negative (Negative) Influenza A & B Note See Note Radiology Impression Discussion of test interpretation with radiology: I have reviewed the radiologist's reading. External Record Review External record reviewed: Inpatient record, Office record, Outpatient record, Prior outpatient labs, Prior outpatient radiology, Primary care record and Outside ED record Tests considered The following testing was considered but not selected: As above Prescription Management I considered prescription management with: Pain Medication Discharge Plan Discharge Clinical Impression: Abdominal pain, Nausea, vomiting, and diarrhea Patient Disposition: Home, Self-Care Additional Instructions: Your blood work is reassuring Your CT scan shows inflammation your small intestine concerning for a stomach virus You still have a right renal cyst and several small liver lesions. You may follow these up with your primary doctor Use Zofran as needed for nausea or vomiting Prescriptions: New ondansetron 4 mg tablet,disintegrating 4 mg PO Q8H PRN (Reason: nausea and vomiting) Qty: 20 0RF No Action epinephrine [EpiPen] 0.3 mg/0.3 mL auto-injector 0.3 mg IM Q4H PRN (Reason: anaphylaxis) Qty: 2 0RF ibuprofen 600 mg tablet 600 mg PO Q8H PRN (Reason: pain) Qty: 30 0RF meclizine 25 mg tablet 25 mg PO TID PRN (Reason: dizziness) Qty: 20 0RF ondansetron 4 mg tablet,disintegrating 4 mg PO Q8H Qty: 7 0RF Referrals: Carlene Calvo MD [Primary Care Provider] -
[2023-09-22 13:53] LABS: COVID-19 Test Negative (Negative); IDNOW Serial# 08D9AD1C
[2023-09-22 13:55] LABS: IDNOW Serial# BCCEAD1C; Influenza A Negative (Negative); Influenza B2 Negative (Negative)
[2023-09-22 13:59] LABS: Alanine Aminotransferase 10 U/L (0-31); Albumin Level 4.2 g/dL (3.5-5.0); Alkaline Phosphatase 59 U/L (39-117); Anion Gap 11 (12-20); Aspartate Amino Transferase 14 U/L (5-31); Bilirubin Direct 0.3 mg/dL (0.0-0.5); Bilirubin Total 0.7 mg/dL (0.0-1.0); Blood Urea Nitrogen 11 mg/dL (9-16); Calcium 8.9 mg/dL (8.4-10.2); Carbon Dioxide 24 mmol/L (22-29); Chloride 106 mmol/L (96-108); Creatinine Clr Calc Pharmacy 114.6; Estimated Glomerular Filt Rate > 60; Glucose Random 97 mg/dL (60-115); Lipase 28 U/L (8-78); Potassium 3.7 mmol/L (3.3-5.1); Sodium 137 mmol/L (135-145); Total Protein 7.6 g/dL (6.5-8.0)
[2023-09-22 14:00] LABS: Basophils Percent Auto 0.2 % (0-2); Eosinophils Absolute Auto 0.3 X10*3/uL (0.0-0.4); Eosinophils Percent Auto 3.2 % (0-4); Hematocrit 34.4 % (37.0-47.0); Hemoglobin 10.2 g/dl (12.0-16.0); Imm Gran Abs Auto 0.02 X10*3/uL (0.00-0.03); Imm Gran Pct Auto 0.2 % (0.0-0.4); Lymphocytes Absolute Auto 0.7 X10*3/uL (1.2-4.9); Lymphocytes Percent Auto 6.1 % (20-40); MANUAL DIFF FLAG SCAN; Mean Corpuscular HGB Conc 29.7 g/dl (31.0-35.0); Mean Corpuscular Volume 70.9 fL (80.0-98.0); Monocytes Absolute Auto 0.9 X10*3/uL (0.1-1.2); Monocytes Percent Auto 8.1 % (2-11); Neutrophils Absolute Auto 8.9 x10*3/uL (2.0-8.3); Neutrophils Percent Auto 82.2 % (45-73); PLT CLUMP 1; Red Blood Count 4.85 X10*6/uL (4.20-5.50); Red Cell Distribution Width 18.9 % (11.0-16.0); SCAN SMEAR FLAG 1
[2023-09-22 14:16] LABS: Platelet Count 233 X10*3/uL (160-400); White Blood Count 10.8 X10*3/uL (4.8-10.8)
[2023-09-22 14:17] LABS: SLIDE REVIEW VERIFIED
[2023-09-22 15:22] VITALS: BP 106/70; PULSE 91
[2023-09-22 15:23] VITALS: BP 110/70; PULSE 93
[2023-09-22 15:24] VITALS: BP 112/73; PULSE 107
[2023-09-22] MEDS: 0.9 % Sodium Chloride 1,000 ML 999 ML IV (15:38)
[2023-09-22] MEDS: Magnesium Hydrox/Alum Hydrox 30 ML ORAL.SUSP PO (15:38)
[2023-09-22] MEDS: Ketorolac Tromethamine 15 MG/ML VIAL IVPUSH (15:39)
[2023-09-22] MEDS: Famotidine/PF 20 MG/2 ML VIAL IVPUSH (15:39)
[2023-09-22 15:42] LABS: Appearance Urine Clear; Color Urine Yellow; Glucose Urine UA Negative (Negative); Leukocyte Esterase Urine Small (1+) (Negative); Nitrite Urine Negative (Negative); PH 6.5 (5.0-9.0); Specific Gravity - Urine 1.025 (1.005-1.025); UMIC TRIGGER UACC YES; Urine Blood Trace (Negative); Urine Ketones Negative (Negative); Urine Protein Negative (Neg-Trace)
[2023-09-22 15:44] LABS: Bacteria Urine Trace (None Seen); Hyaline Casts Urine 0-2 /LPF (0-2); RBC Urine 0-2 /HPF (0-2); UACC Culture Trigger YES; UPreg QC Valid YES; Urine Pregnancy NEGATIVE (NEGATIVE)
[2023-09-22 15:47] LABS: Troponin-I High Sensitivity < 2.7 ng/L (<3.5-17.0)
[2023-09-22 15:54] LABS: Magnesium 1.9 mg/dL (1.6-2.6)
[2023-09-22 16:07] LABS: HCG Quantitative < 2 mIU/mL
[2023-09-22] MEDS: iohexoL 350 MG/ML 100 ML INFUS..BTL 85 ML IV (16:18)
[2023-09-22 18:12] VITALS: BP 128/62; PULSE 68; RESP 16; O2SAT 100
== END 2023-09-22 18:13 | disposition home or self-care (01) ==
PROVIDERS: Physician Assistant; Physician Assistant Medical; Emergency Provider Emergency Medicine; PCP Family Medicine
DX: R10.9 Unspecified abdominal pain (principal); R11.2 Nausea with vomiting, unspecified; R19.7 Diarrhea, unspecified; Z11.52 Encounter for screening for COVID-19
CPT/HCPCS: 74177; 80048; 80076; 81001; 81025; 83690; 83735; 84484; 84702; 85025; 87086; 87502; 87635; 99284; 99285; J1885; Q9967

== ENCOUNTER 2023-09-30 12:48 | Outpatient (REF) | payer MEDICAID, SELFPAY ==
[2023-10-01 22:13] LABS: C. trachomatis RNA TMA NOT DETECTED (NOT DETECTED); Candida glabrata RNA NOT DETECTED (NOT DETECTED); Candida species RNA NOT DETECTED (NOT DETECTED); N. gonorrhoeae RNA TMA NOT DETECTED (NOT DETECTED); Trichomonas vaginalis RNA NOT DETECTED (NOT DETECTED)
== END 2023-09-30 12:49 | disposition home or self-care (01) ==
LOC: HO.CHCLNP 12:48
PROVIDERS: Visit Provider Advanced Practice Midwife
DX: Z11.3 Encounter for screening for infections with a predominantly sexual mode of transmission (principal); N93.9 Abnormal uterine and vaginal bleeding, unspecified
CPT/HCPCS: 36415; 81513; 87481; 87491; 87591; 87661

== ENCOUNTER 2023-10-01 13:50 | Outpatient (REF) | payer MEDICAID, SELFPAY ==
--- NOTE | ~2023-10-01 | MM_ITS ---
EXAMINATION: MM DIAGNOSTIC DIGITAL BREAST TOMOSYNTHESIS, BILATERAL US BREAST LIMITED, LEFT MAMMOGRAPHY: CLINICAL INFORMATION: Increased prominence of veins in left breast . No additional complaints. 37-year-old female. COMPARISON: Mammography: 06/19/2021. TECHNIQUE: Digital breast tomosynthesis is performed in both the craniocaudal and mediolateral oblique views along with computer-aided detection (CAD). Synthesized 2D images are generated from the tomosynthesis. FINDINGS: The breasts are heterogeneously dense, which may obscure small masses (ACR BI-RADS breast composition Category c). There are no suspicious masses, suspicious grouped calcifications, or areas of architectural distortion in either breast. The parenchymal pattern is stable from prior exams. No skin or axillary abnormalities. There are a few benign type skin calcifications in the left medial breast. ULTRASOUND: CLINICAL INFORMATION: Increased prominence of the veins in left breast . No additional complaints. COMPARISON: Non-contributory left breast ultrasound 06/19/2021. TECHNIQUE: Targeted sonographic evaluation was performed using a high frequency linear transducer. Selected archived documentation. FINDINGS: LEFT BREAST: There is a mixture of fatty and fibroglandular tissue. No suspicious mass is seen. There is no pathologic acoustic shadowing. There is mild retroareolar duct ectasia without filling defect seen. No edema within the soft tissue planes. No discrete cystic abnormality. MM/MM tomosynthesis diagnostic BI IMPRESSION: There are no findings suspicious for malignancy in either breast. Benign findings left breast related to mild retroareolar ectatic duct ectasia. Recommend resuming routine screening mammography at age 41. OVERALL ASSESSMENT: Mammography: BI-RADS 2 - Benign Findings Ultrasound: BI-RADS 2 - Benign Findings RECOMMENDATION: 1 year F/U This patient's information was entered into a reminder system with a target due date for their next mammogram.
--- NOTE | ~2023-10-01 | US_ITS ---
EXAMINATION: MM DIAGNOSTIC DIGITAL BREAST TOMOSYNTHESIS, BILATERAL US BREAST LIMITED, LEFT MAMMOGRAPHY: CLINICAL INFORMATION: Increased prominence of veins in left breast . No additional complaints. 37-year-old female. COMPARISON: Mammography: 06/19/2021. TECHNIQUE: Digital breast tomosynthesis is performed in both the craniocaudal and mediolateral oblique views along with computer-aided detection (CAD). Synthesized 2D images are generated from the tomosynthesis. FINDINGS: There are scattered areas of fibroglandular density (ACR BI-RADS breast composition Category b). There are no suspicious masses, suspicious grouped calcifications, or areas of architectural distortion in either breast. The parenchymal pattern is stable from prior exams. No skin or axillary abnormalities. There are a few benign type skin calcifications in the left medial breast. ULTRASOUND: CLINICAL INFORMATION: Increased prominence of the veins in left breast . No additional complaints. COMPARISON: Non-contributory left breast ultrasound 06/19/2021. TECHNIQUE: Targeted sonographic evaluation was performed using a high frequency linear transducer. Selected archived documentation. FINDINGS: LEFT BREAST: There is a mixture of fatty and fibroglandular tissue. No suspicious mass is seen. There is no pathologic acoustic shadowing. There is mild retroareolar duct ectasia without filling defect seen. No edema within the soft tissue planes. No discrete cystic abnormality. US/US breast LT limited mamm only IMPRESSION: There are no findings suspicious for malignancy in either breast. Benign findings left breast related to mild retroareolar ectatic duct ectasia. Recommend resuming routine screening mammography at age 41. OVERALL ASSESSMENT: Mammography: BI-RADS 1 - Negative Ultrasound: BI-RADS 1 - Negative RECOMMENDATION: 1 year F/U This patient's information was entered into a reminder system with a target due date for their next mammogram.
== END 2023-10-01 13:51 | disposition home or self-care (01) ==
LOC: HO.MAMMO 13:50
PROVIDERS: PCP Family Medicine; Visit Provider Advanced Practice Midwife
DX: N64.59 Other signs and symptoms in breast (principal)
CPT/HCPCS: 76642; 77062; 77066

== ENCOUNTER → 2023-10-01 14:00 | Outpatient (BNV) | payer MEDICAID, SELFPAY | PROVIDERS: PCP Family Medicine; Visit Provider Radiology Diagnostic Radiology | DX: R92.1 Mammographic calcification found on diagnostic imaging of breast (principal); R92.312 Mammographic fatty tissue density, left breast; R92.322 Mammographic fibroglandular density, left breast; R92.333 Mammographic heterogeneous density, bilateral breasts | CPT/HCPCS: 76642; 77062; 77066 ==

== ENCOUNTER 2024-01-23 19:28 | Emergency (ER) | payer MEDICAID, SELFPAY ==
--- NOTE | 2024-01-23 20:07 | ED.URI ---
HPI - URI/Sore Throat General Chief Complaint: General Medical Stated Complaint: Nausea/Dizziness Time Seen by Provider: 01/23/24 21:03 Source: patient and family Mode of arrival: ambulatory Limitations: no limitations History of Present Illness HPI Narrative: 38 yo female with no sig PMH here with c/o 1 day of loose stools abd cramps no fevers no blood able to tolerate PO mild dizziness mild cramps daughter has same illness they were exposed to ill nephew elicited complaint: other (diarrhea, cramps) Onset (ago): day(s) (1) Consistency: constant Severity: mild Able to tolerate fluids by mouth: Yes Exacerbating factors: other (eating) Relieving factors: nothing Context: sick contacts Associated symptoms: myalgias, headache, abdominal pain, nausea and diarrhea Treatments prior to arrival: none Related Data Previous Rx's ?Medication ?Instructions ?Recorded ibuprofen 600 mg tablet 600 mg PO Q8H PRN pain #30 tabs 06/11/22 epinephrine 0.3 mg/0.3 mL 0.3 mg (0.3 mL) IM Q4H PRN 12/20/22 injection, auto-injector (EpiPen) anaphylaxis #2 ea meclizine 25 mg tablet 25 mg PO TID PRN dizziness #20 tabs 12/21/22 ondansetron 4 mg disintegrating 4 mg PO Q8H #7 tabs 02/08/23 tablet ondansetron 4 mg disintegrating 4 mg PO Q8H PRN nausea and 09/22/23 tablet vomiting #20 tabs Allergies Allergy/AdvReac Type Severity Reaction Status Date / Time nut - unspecified Allergy Anaphylaxis Verified 01/23/24 20:11 procaine AdvReac Unknown faints Verified 01/23/24 20:11 Review of Systems Review of Systems: Constitutional : No Weight loss, No Fever, No Chills ENT/Mouth : No sore throat, No Rhinorrhea Eyes: No Swelling, No Redness Cardiovascular : No Chest Pain, No SOB, NoEdema Respiratory : No Cough, No Sputum, No Wheezing Gastrointestinal : no Nausea, no Vomiting, positive Diarrhea, positive abdominal Pain, No Hematochezia, No Melena Genitourinary : No Dysuria, No Urinary Frequency, No Hematuria, No Urgency Musculoskeletal : No joint pain, pos Myalgias, No Joint Swelling Skin : No Skin Lesions, No rash Neuro : No Weakness, No Numbness, pos Dizziness, pos Headache All other systems reviewed and are negative. [facility] Past Medical History Attestation statement: The following information was validated with the patient. Source: old records reviewed Medical History No active medical problems Surgical History S/P breast biopsy, right Family History Family History Father H/O heart artery stent Cardiovascular disease Mother No problems noted. Social History Social History Alcohol intake: former Patient Tobacco Use Status: Never used Tobacco Advance Directives: No Advance Directives Information Provided: Yes Physical Exam Vital Signs: Vital Signs: Last Vital Signs Temp 99.1 F 01/23/24 20:09 Pulse 79 01/23/24 20:09 Resp 16 01/23/24 20:09 BP 117/79 01/23/24 20:09 Pulse Ox 97 01/23/24 20:09 O2 Del Method Room Air 01/23/24 20:09 BMI result Body Mass Index 24.4 Appearance: Alert. Oriented X3. No acute distress. Eyes: Pupils equal, round and reactive to light. ENT: Pharynx normal. Neck: Normal inspection. Neck supple. CVS: Normal heart rate and rhythm. Pulses normal. Respiratory: No respiratory distress. Breath sounds normal. Abdomen: Soft and nontender. Skin: Skin warm and dry. Normal skin color. Normal skin turgor. Extremities: No lower extremity edema. No calf ttp Neuro: Oriented X 3. No motor deficit. No sensory deficit. Course Course Course Narrative: This is an RME: Additional HPI, ROS, PE not included below will be deferred to primary provider. Patient is a 38-year-old female who presents emergency department for evaluation of nausea, dizziness, diarrhea with symptoms onset yesterday. Daughter is ill with similar symptoms. Medical Decision Making Medical Decision Making MDM Narrative: 38 yo female with no sig PMH here with diarrhea, body aches, intermittent dizziness not feeling well today after exposure to nephew she is eating and drinking no severe pain no bloody stools - will start on immodium. daughter here with similar symptoms. no travel no abx Differential Diagnosis Differential Diagnoses: The differential diagnosis associated with the presentation includes viral syndrome Admission/Observation Consideration of admission/observation: Escalation of care including admission/observation considered not toxic, tolerating PO stable for DC Lab Data [facility] Lab Attestation statement: I reviewed the patient's lab results. Labs: Lab Results 01/23/24 Range/Units 20:18 Urine Color Yellow Urine Appearance Clear Urine pH 6.0 (5.0-9.0) Ur Specific [place] 1.020 (1.005-1.025) Urine Protein Negative (Neg-Trace) mg/dL Urine Glucose (UA) Negative (Negative) mg/dL Urine Ketones Negative (Negative) mg/dL Urine Blood Negative (Negative) Urine Nitrite Negative (Negative) Ur Leukocyte Esterase Trace H (Negative) Urine RBC 0-2 (0-2) /HPF Urine WBC 0-5 (0-5) /HPF Ur Squamous Epith Cells 0-2 (0-2) /HPF Urine Bacteria None Seen (None Seen) Hyaline Casts 0-2 (0-2) /LPF Urine Test NEGATIVE (NEGATIVE) Influenza Type A (PCR) NEGATIVE (Negative) Influenza Type B (PCR) NEGATIVE (Negative) RSV RNA Qual (PCR) NEGATIVE (Negative) SARS-CoV-2 RNA (RT-PCR) NEGATIVE (Negative) Independent Historian Clinical information obtained from an independent historian. History obtained from or confirmed by: Other (daughter) External Record Review External record reviewed: Inpatient record Prescription Management I considered prescription management with: Other Discharge Plan Discharge Clinical Impression: Acute viral syndrome Diarrhea Qualifiers: Diarrhea type: presumed infectious Qualified Code(s): R19.7 - Diarrhea, unspecified Patient Disposition: Home, Self-Care Instructions: Acute Diarrhea (ED), Viral Syndrome (ED) Additional Instructions: return for worsening symptoms, fevers, bloody stools, severe pain or any other concerns bland diet for 48 hours then advance as tolerated stay hydrated okay to take immodium as needed unless you have severe pain or bloody stools Prescriptions: No Action epinephrine [EpiPen] 0.3 mg/0.3 mL auto-injector 0.3 mg IM Q4H PRN (Reason: anaphylaxis) Qty: 2 0RF ibuprofen 600 mg tablet 600 mg PO Q8H PRN (Reason: pain) Qty: 30 0RF meclizine 25 mg tablet 25 mg PO TID PRN (Reason: dizziness) Qty: 20 0RF ondansetron 4 mg tablet,disintegrating 4 mg PO Q8H PRN (Reason: nausea and vomiting) Qty: 20 0RF ondansetron 4 mg tablet,disintegrating 4 mg PO Q8H Qty: 7 0RF Print Language: Slovak
[2024-01-23 20:09] VITALS: BP 117/79; PULSE 79; RESP 16; TEMP 37.3; O2SAT 97; BMI 24.4
[2024-01-23 20:33] LABS: Appearance Urine Clear; Color Urine Yellow; Glucose Urine UA Negative (Negative); Leukocyte Esterase Urine Trace (Negative); Nitrite Urine Negative (Negative); UMIC TRIGGER UACC YES; Urine Blood Negative (Negative); Urine Ketones Negative (Negative); Urine Protein Negative (Neg-Trace)
[2024-01-23 20:37] LABS: UPreg QC Valid YES; Urine Pregnancy NEGATIVE (NEGATIVE)
[2024-01-23 20:38] LABS: Bacteria Urine None Seen (None Seen); Hyaline Casts Urine 0-2 /LPF (0-2); RBC Urine 0-2 /HPF (0-2); Squamous Epithelial Cell Urine 0-2 /HPF (0-2); WBC Urine 0-5 /HPF (0-5)
[2024-01-23 21:03] LABS: Influenza A PCR NEGATIVE (Negative); Influenza B PCR NEGATIVE (Negative); Resp Syncy Virus RNA Qual PCR NEGATIVE (Negative); SARS COV2 PCR INHOUSE NEGATIVE (Negative)
[2024-01-23] MEDS: Diphenoxylate/Atrop 2.5/0.025 TABLET 1 TAB PO (21:53)
== END 2024-01-23 22:07 | disposition home or self-care (01) ==
PROVIDERS: Nurse Practitioner Family; Emergency Provider Emergency Medicine; PCP Family Medicine
DX: B34.9 Viral infection, unspecified (principal); R19.7 Diarrhea, unspecified
CPT/HCPCS: 0241U; 81001; 81025; 99282; 99283

== ENCOUNTER 2024-02-16 09:14 | Outpatient (REF) | payer MEDICAID, SELFPAY ==
[2024-02-16 11:39] LABS: Basophils Absolute Auto 0.1 X10*3/uL (0.0-0.2); Basophils Percent Auto 1.4 % (0-2); Eosinophils Absolute Auto 0.6 X10*3/uL (0.0-0.4); Eosinophils Percent Auto 8.3 % (0-4); Hematocrit 35.7 % (37.0-47.0); Hemoglobin 10.8 g/dl (12.0-16.0); Imm Gran Abs Auto 0.02 X10*3/uL (0.00-0.03); Imm Gran Pct Auto 0.3 % (0.0-0.4); Lymphocytes Absolute Auto 2.1 X10*3/uL (1.2-4.9); Lymphocytes Percent Auto 31.9 % (20-40); MANUAL DIFF FLAG SCAN; Mean Corpuscular HGB Conc 30.3 g/dl (31.0-35.0); Mean Corpuscular Hemoglobin 22.8 pg (27.0-33.0); Mean Corpuscular Volume 75.5 fL (80.0-98.0); Monocytes Absolute Auto 0.5 X10*3/uL (0.1-1.2); Monocytes Percent Auto 7.7 % (2-11); Neutrophils Absolute Auto 3.3 x10*3/uL (2.0-8.3); Neutrophils Percent Auto 50.4 % (45-73); PLT CLUMP 1; Red Blood Count 4.73 X10*6/uL (4.20-5.50); Red Cell Distribution Width 18.8 % (11.0-16.0); SCAN SMEAR FLAG 1
[2024-02-16 11:40] LABS: White Blood Count 6.6 X10*3/uL (4.8-10.8)
[2024-02-16 11:58] LABS: Alanine Aminotransferase 15 U/L (0-31); Albumin Level 4.2 g/dL (3.5-5.0); Alkaline Phosphatase 51 U/L (39-117); Anion Gap 13 (12-20); Aspartate Amino Transferase 15 U/L (5-31); Bilirubin Total 0.4 mg/dL (0.0-1.0); Blood Urea Nitrogen 12 mg/dL (9-16); Calcium 9.1 mg/dL (8.4-10.2); Carbon Dioxide 23 mmol/L (22-29); Chloride 109 mmol/L (96-108); Cholesterol 189 mg/dL (<200); Estimated Glomerular Filt Rate > 60; Glucose Random 97 mg/dL (60-115); HDL Cholesterol 46 mg/dL (>40); LDL Cholesterol Calculated 116 mg/dL (<100); Potassium 3.9 mmol/L (3.3-5.1); Sodium 141 mmol/L (135-145); Total Protein 7.5 g/dL (6.5-8.0); Triglycerides 136 mg/dL (<150)
[2024-02-16 12:03] LABS: TSH reflex Free T4 0.53 uIU/mL (0.32-4.0)
[2024-02-16 12:21] LABS: Platelet Count 234 X10*3/uL (160-400); SLIDE REVIEW VERIFIED
== END 2024-02-16 09:15 | disposition home or self-care (01) ==
LOC: HO.HHCL 09:14
PROVIDERS: Visit Provider Family Medicine
DX: R53.83 Other fatigue (principal)
CPT/HCPCS: 36415; 80053; 80061; 82306; 84443; 85025

== ENCOUNTER 2024-03-11 13:33 | Outpatient (REF) | payer MEDICAID, SELFPAY ==
[2024-03-12 02:57] LABS: CT PCR NOT DETECTED (Not Detect.); NG PCR NOT DETECTED (Not Detect.)
[2024-03-12 08:05] LABS: HIV AB/AG Nonreactive (Nonreactive); HIV Num 1 0.07 S/CO (0.00-0.99)
[2024-03-12 08:18] LABS: Syphilis Screen Nonreactive (Nonreactive)
== END 2024-03-11 13:34 | disposition home or self-care (01) ==
LOC: HO.HHCL 13:33
PROVIDERS: Visit Provider Advanced Practice Midwife
DX: R30.0 Dysuria (principal); Z11.3 Encounter for screening for infections with a predominantly sexual mode of transmission
CPT/HCPCS: 0353U; 36415; 86780; 87086; 87088; 87186; 87389

== ENCOUNTER 2024-03-25 02:14 | Emergency (ER) | payer MEDICAID, SELFPAY ==
--- NOTE | 2024-03-25 | ECG_ITS ---
Test Reason : PALPITATIONS Blood Pressure : / mmHG Vent. Rate : 072 BPM Atrial Rate : 072 BPM P-R Int : 158 ms QRS Dur : 078 ms QT Int : 406 ms P-R-T Axes : 031 006 004 degrees QTc Int : 444 ms Normal sinus rhythm Normal ECG When compared with ECG of 08-FEB-2023 15:07, No significant change was found Referred By: Generic ED Physician Electronically Signed By:JULIANA STONE
[2024-03-25 02:18] VITALS: BP 102/66; BP 125/73; PULSE 67; PULSE 90; RESP 17; TEMP 36.7; O2SAT 96; O2SAT 98; BMI 25.0
[2024-03-25 02:39] VITALS: BP 99/62; PULSE 74
[2024-03-25 02:40] VITALS: BP 103/67; BP 109/61; PULSE 78; PULSE 80
[2024-03-25 02:41] LABS: PLT ABN DIST 1; Red Cell Distribution Width 17.1 % (11.0-16.0); WBC ABN SCTR FOR CBC 1
[2024-03-25 02:42] LABS: Hematocrit 32.1 % (37.0-47.0); Mean Corpuscular HGB Conc 31.2 g/dl (31.0-35.0); Mean Corpuscular Hemoglobin 22.8 pg (27.0-33.0); Mean Corpuscular Volume 73.1 fL (80.0-98.0); PLT CLUMP 1; Red Blood Count 4.39 X10*6/uL (4.20-5.50)
[2024-03-25 02:52] LABS: Alanine Aminotransferase 17 U/L (0-31); Albumin Level 4.1 g/dL (3.5-5.0); Alkaline Phosphatase 51 U/L (39-117); Anion Gap 11 (12-20); Aspartate Amino Transferase 16 U/L (5-31); Bilirubin Total 0.3 mg/dL (0.0-1.0); Blood Urea Nitrogen 12 mg/dL (9-16); Carbon Dioxide 22 mmol/L (22-29); Chloride 109 mmol/L (96-108); Creatinine Clr Calc Pharmacy 110.1; Estimated Glomerular Filt Rate > 60; Glucose Random 116 mg/dL (60-115); Potassium 3.9 mmol/L (3.3-5.1); Sodium 138 mmol/L (135-145); Total Protein 7.4 g/dL (6.5-8.0)
--- NOTE | 2024-03-25 02:52 | PC.NURSE ---
pt biba from home, a&ox4, respirations even and unlabored. pt reporting onset of dizziness and palpitations x3 days. reports it increases with movement. pt denies n/v/d. 20G placed in left ac, labs obtained and sent. pt normal sinus on tele 78-80bpm.
--- NOTE | 2024-03-25 02:55 | ED_ITS ---
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 Related Data Previous Rx's ?Medication ?Instructions ?Recorded ibuprofen 600 mg tablet 600 mg PO Q8H PRN pain #30 tabs 06/11/22 epinephrine 0.3 mg/0.3 mL 0.3 mg (0.3 mL) IM Q4H PRN 12/20/22 injection, auto-injector (EpiPen) anaphylaxis #2 ea meclizine 25 mg tablet 25 mg PO TID PRN dizziness #20 tabs 12/21/22 ondansetron 4 mg disintegrating 4 mg PO Q8H #7 tabs 02/08/23 tablet ondansetron 4 mg disintegrating 4 mg PO Q8H PRN nausea and 09/22/23 tablet vomiting #20 tabs Allergies Allergy/AdvReac Type Severity Reaction Status Date / Time nut - unspecified Allergy Anaphylaxis Verified 03/25/24 02:20 procaine AdvReac Unknown faints Verified 03/25/24 02:20 Review of Systems 2 Review of Systems: Pertinent positives and negatives as stated in HPI [facility] Past Medical History Source: nursing notes reviewed Medical History No active medical problems Surgical History S/P breast biopsy, right Family History Family History Father H/O heart artery stent Cardiovascular disease Mother No problems noted. Social History Social History Alcohol intake: former Patient Tobacco Use Status: Never used Tobacco Smoked in Last 30 Days: No Use of substances other than those prescribed or required for medical reasons: No Advance Directives: No Advance Directives Information Provided: No Do you have a plan to hurt others: No Plan Patient : No Physical Exam 2 Vital Signs: Vital Signs: Last Vital Signs Temp 98.1 F 03/25/24 06:19 Pulse 77 03/25/24 06:19 Resp 15 03/25/24 06:19 BP 103/62 03/25/24 06:19 Pulse Ox 96 03/25/24 06:19 O2 Del Method Room Air 03/25/24 06:19 BMI result Body Mass Index 25.0 VITAL SIGNS: Reviewed. GENERAL: Well developed, well nourished, in no acute distress. HEAD: Normocephalic/atraumatic EYES: PERRLA, EOMI EARS: Ext canals without abnormality NOSE: Nares patent bilateral OROPHARYNX: no oral lesions noted, posterior pharynx clear NECK: Supple, no adenopathy LUNGS: Normal breath sounds. No adventitious sounds or accessory muscle use. SpO2<96> CARDIOVASCULAR: Regular rate and rhythm without noted murmurs ABDOMEN: Soft, non-tender, non-distended with bowel sounds. MUSCULOSKELETAL: No tenderness, deformities, or effusions noted on gross inspection. EXTREMITIES: No cyanosis, clubbing or edema. SKIN: Inspection of the skin reveals no rashes NEUROLOGIC: Alert and oriented x 4. Strength and sensation to light touch were grossly intact x 4. Medical Decision Making Medical Decision Making MDM Narrative: 38-year-old female with history and clinical presentation, DDX: Benign palpitations, will rule out infection/electrolyte or arrhythmia. Reviewed all investigations and hematologic indices are negative for leukocytosis there is a stable microcytic anemia, no thrombocytopenia. Chemistry indices are negative for OSMAN/electrolyte or liver enzyme derangements and high sensitivity troponin is undetectable and there are no acute changes on EKG. Urinalysis is negative for UTI or hematuria. Orthostatics are negative. On re-evaluation dizziness has subsided, all results and findings discussed with her at bedside and she was strongly encouraged to follow-up with her primary care doctor at your earliest convenience. Differential Diagnosis Differential Diagnoses: The differential diagnosis associated with the presentation includes Please see the discussion above Admission/Observation Consideration of admission/observation: Escalation of care including admission/observation considered Please see the discussion above Lab Data [facility] Lab Attestation statement: I reviewed the patient's lab results. Please see the discussion above 03/25/24 02:30 03/25/24 02:30 Labs: Lab Results 03/25/24 03/25/24 Range/Units 02:30 04:54 WBC 10.0 (4.8-10.8) X10*3/uL RBC 4.39 (4.20-5.50) X10*6/uL Hgb 10.0 L (12.0-16.0) g/dl Hct 32.1 L (37.0-47.0) % MCV 73.1 L (80.0-98.0) fL MCH 22.8 L (27.0-33.0) pg MCHC 31.2 (31.0-35.0) g/dl RDW 17.1 H (11.0-16.0) % Plt Count 261 (160-400) X10*3/uL MPV 12.0 (9.4-12.3) fL Immature Gran % (Auto) Cancelled Neut % (Auto) Cancelled Lymph % (Auto) Cancelled [place] % (Auto) Cancelled Eos % (Auto) Cancelled Baso % (Auto) Cancelled Lymph # (Auto) Cancelled [place] # (Auto) Cancelled Eos # (Auto) Cancelled Baso # (Auto) Cancelled Abs Immat Gran (auto) Cancelled Absolute Neuts (auto) Cancelled Absolute Nucleated RBC 0.000 (0.0-0.012) X10*3/uL Nucleated RBC % (auto) 0.0 (0.0-0.2) /100WBC Neutrophils % (Manual) 80 H (45-73) % Band Neutrophils % 0 L (3-5) % Lymphocytes % (Manual) 14 L (20-40) % Monocytes % (Manual) 4 (2-11) % Basophils % (Manual) 2 (0-2) % Abs Neuts (Manual) 8.0 (2.0-8.3) X10*3/uL Lymphocytes # (Manual) 1.4 (1.2-4.9) X10*3/uL Monocytes # (Manual) 0.4 (0.1-1.2) X10*3/uL Basophils # (Manual) 0.2 (0.0-0.2) X10*3/uL Platelet Estimate NORMAL (NORMAL) Large Platelets PRESENT Plt Morphology Comment NOTED RBC Morphology NOTED Hypochromasia 2+ (15-30) /OIF Microcytosis 1+ (5-14) /OIF Sodium 138 (135-145) mmol/L Potassium 3.9 (3.3-5.1) mmol/L Chloride 109 H (96-108) mmol/L Carbon Dioxide 22 (22-29) mmol/L Anion Gap 11 L (12-20) BUN 12 (9-16) mg/dL Creatinine 0.68 (0.5-1.4) mg/dL Estim Creat Clear Calc 110.1 Estimated GFR > 60 Random Glucose 116 H (60-115) mg/dL Calcium 9.0 (8.4-10.2) mg/dL Total Bilirubin 0.3 (0.0-1.0) mg/dL AST 16 (5-31) U/L ALT 17 (0-31) U/L Alkaline Phosphatase 51 (39-117) U/L Troponin I High Sens < 2.7 (<3.5-17.0) ng/L Total Protein 7.4 (6.5-8.0) g/dL Albumin 4.1 (3.5-5.0) g/dL Beta HCG, Quant < 2 mIU/mL Urine Color Yellow Urine Appearance Clear Urine pH 7.0 (5.0-9.0) Ur Specific [place] 1.015 (1.005-1.025) Urine Protein Negative (Neg-Trace) mg/dL Urine Glucose (UA) Negative (Negative) mg/dL Urine Ketones Negative (Negative) mg/dL Urine Blood Negative (Negative) Urine Nitrite Negative (Negative) Ur Leukocyte Esterase Trace H (Negative) Urine RBC 0-2 (0-2) /HPF Urine WBC 0-5 (0-5) /HPF Ur Squamous Epith Cells 3-5 (0-2) /HPF Urine Bacteria None Seen (None Seen) Hyaline Casts 0-2 (0-2) /LPF Urine Opiates Screen Not Detected (Not Detect) Ur Buprenorphine Scrn Not Detected (Not Detect) ng/mL Ur Oxycodone Screen Not Detected (Not Detect) ng/mL Urine Methadone Screen Not Detected (Not Detect) ng/mL Urine Fentanyl Screen Not Detected (Not Detect) Ur Barbiturates Screen Not Detected (Not Detect) Ur Phencyclidine Scrn Not Detected (Not Detect) Ur Amphetamines Screen Not Detected (Not Detect) U Benzodiazepines Scrn Not Detected (Not Detect) Urine Cocaine Screen Not Detected (Not Detect) U Marijuana (THC) Screen Not Detected (Not Detect) Independent Interpretation I performed an independent interpretation of an: EKG Interpretation: Normal sinus rhythm, HR-72, no STEMI, [place]/QRS/QTC is within normal limits. External Record Review External record reviewed: Outpatient record, Prior outpatient labs and Prior outpatient radiology Critical Care Time Critical Care Time Critical Care Time: Yes Total Critical Care Time: 45 Attestation: I personally attest to this time spent taking care of the patient. Discharge Plan Discharge Clinical Impression: Heart palpitations, Lightheadedness Patient Disposition: Home, Self-Care Instructions: Lightheadedness (ED), Heart Palpitations (ED) Additional Instructions: 1. Please follow-up with your primary care doctor in the next 1-2 days. Return to the ER for any acute worsening of your symptoms. Prescriptions: No Action epinephrine [EpiPen] 0.3 mg/0.3 mL auto-injector 0.3 mg IM Q4H PRN (Reason: anaphylaxis) Qty: 2 0RF ibuprofen 600 mg tablet 600 mg PO Q8H PRN (Reason: pain) Qty: 30 0RF meclizine 25 mg tablet 25 mg PO TID PRN (Reason: dizziness) Qty: 20 0RF ondansetron 4 mg tablet,disintegrating 4 mg PO Q8H PRN (Reason: nausea and vomiting) Qty: 20 0RF ondansetron 4 mg tablet,disintegrating 4 mg PO Q8H Qty: 7 0RF Print Language: Urdu
[2024-03-25 02:59] LABS: Platelet Count 261 X10*3/uL (160-400)
[2024-03-25 03:00] LABS: Troponin-I High Sensitivity < 2.7 ng/L (<3.5-17.0)
[2024-03-25 03:06] LABS: Band Neutrophils Percent 0 % (3-5); Basophils Abs Manual 0.2 X10*3/uL (0.0-0.2); Basophils Percent Manual 2 % (0-2); Lymphocytes Absolute Manual 1.4 X10*3/uL (1.2-4.9); Lymphocytes Percent Manual 14 % (20-40); Monocytes Absolute Manual 0.4 X10*3/uL (0.1-1.2); Monocytes Percent Manual 4 % (2-11); Neutrophils Percent Manual 80 % (45-73)
[2024-03-25 03:08] LABS: Hypochromasia 2+ (15-30) /OIF; Large Platelet PRESENT; Microcytosis 1+ (5-14) /OIF; Platelet Estimate NORMAL (NORMAL); Platelet Morphology Comment NOTED; RBC Morphology NOTED
[2024-03-25 03:20] LABS: HCG Quantitative < 2 mIU/mL
[2024-03-25 05:00] LABS: Appearance Urine Clear; Color Urine Yellow; Glucose Urine UA Negative (Negative); Leukocyte Esterase Urine Trace (Negative); Nitrite Urine Negative (Negative); Specific Gravity - Urine 1.015 (1.005-1.025); UMIC TRIGGER UACC YES; Urine Blood Negative (Negative); Urine Ketones Negative (Negative); Urine Protein Negative (Neg-Trace)
[2024-03-25 05:03] LABS: Bacteria Urine None Seen (None Seen); Hyaline Casts Urine 0-2 /LPF (0-2); RBC Urine 0-2 /HPF (0-2); WBC Urine 0-5 /HPF (0-5)
[2024-03-25 05:14] LABS: Amphetamine Screen Urine Not Detected (Not Detect); Barbiturates, Urine Not Detected (Not Detect); Benzodiazepines Screen Urine Not Detected (Not Detect); Buprenorphine Scr Not Detected (Not Detect); Cannabinoid Screen Urine Not Detected (Not Detect); Cocaine Screen Urine Not Detected (Not Detect); Fentanyl, urine Not Detected (Not Detect); Methadone Screen, Urine Not Detected (Not Detect); Opiate Screen Urine Not Detected (Not Detect); Oxycodone Screen Urine Not Detected (Not Detect); Phencyclidine Screen Urine Not Detected (Not Detect)
[2024-03-25 06:19] VITALS: BP 103/62; PULSE 77; RESP 15; TEMP 36.7; O2SAT 96
[2024-03-25 06:58] VITALS: BP 103/62; PULSE 77; RESP 15; TEMP 36.7; O2SAT 96
== END 2024-03-25 06:58 | disposition home or self-care (01) ==
PROVIDERS: Emergency Provider Student in an Organized Health Care Education/Training Program
DX: R42 Dizziness and giddiness (principal); R00.2 Palpitations
CPT/HCPCS: 36415; 80053; 80307; 81001; 81003; 84484; 84702; 85007; 85027; 93005; 99283; 99285

== ENCOUNTER → 2024-03-25 02:29 | Outpatient (BNV) | payer MEDICAID, SELFPAY | PROVIDERS: Emergency Provider Student in an Organized Health Care Education/Training Program; Visit Provider Internal Medicine | DX: R42 Dizziness and giddiness (principal) | CPT/HCPCS: 93010 ==

== ENCOUNTER 2024-03-26 14:22 | Outpatient (REF) | payer MEDICAID, SELFPAY ==
--- NOTE | ~2024-03-26 | US_ITS ---
EXAMINATION: US PELVIS CLINICAL INFORMATION: Abnormal bleeding with IUD, last menstrual period 02/27/2024. IUD removed. COMPARISON: 07/06/2021. TECHNIQUE: Ultrasound of the pelvis is performed using both transabdominal and transvaginal transducers along with Doppler. Transvaginal imaging is performed due to inadequate visualization transabdominally. FINDINGS: The uterus is anteverted and measures 9.9 x 4.7 x 6.4 cm. Endometrium is echogenic with thickness of 13 mm. No significant free fluid. Right ovary measures 4.6 x 2.4 x 2.2 cm, volume 12.7 mL. Right ovarian 2.4 x 1.6 x 1.6 cm complex cyst with thick [place] and low-level internal echoes, possibly a corpus luteum. Left ovary measures 3.1 x 1.5 x 2.6 cm, volume 6.3 mL and is unremarkable. US/US pelvic and transvaginal IMPRESSION: Right ovarian 2.4 x 1.6 x 1.6 complex cyst with thick [place]inn and low-level internal echoes, possibly a corpus luteum. Recommend follow up ultrasound in 6-8 weeks. Endometrium is echogenic with thickness of 13 mm.
== END 2024-03-26 14:23 | disposition home or self-care (01) ==
LOC: HO.US 14:22
PROVIDERS: PCP Family Medicine; Visit Provider Family Medicine
DX: N93.9 Abnormal uterine and vaginal bleeding, unspecified (principal)
CPT/HCPCS: 76830; 76856

== ENCOUNTER 2024-04-01 11:12 | Outpatient (REF) | payer MEDICAID, SELFPAY ==
[2024-04-01 15:29] LABS: HCG Quantitative < 2 mIU/mL
== END 2024-04-01 11:13 | disposition home or self-care (01) ==
LOC: HO.CHCLDS 11:12
PROVIDERS: Visit Provider Family Medicine
DX: Z32.00 Encounter for pregnancy test, result unknown (principal)
CPT/HCPCS: 36415; 84702

== ENCOUNTER 2024-05-05 01:27 | Emergency (ER) | payer MEDICAID, SELFPAY ==
--- NOTE | 2024-05-05 | ECG_ITS ---
Test Reason : PALPATATIONS Blood Pressure : / mmHG Vent. Rate : 070 BPM Atrial Rate : 070 BPM P-R Int : 144 ms QRS Dur : 078 ms QT Int : 418 ms P-R-T Axes : 033 007 003 degrees QTc Int : 451 ms Normal sinus rhythm Normal ECG When compared with ECG of 25-MAR-2024 02:29, No significant change was found Referred By: Generic ED Physician Electronically Signed By:JULIANA STONE
[2024-05-05 01:38] VITALS: BP 122/84; PULSE 69; RESP 18; TEMP 36.6; O2SAT 98; BMI 25.2
--- NOTE | 2024-05-05 02:36 | ED_ITS ---
HPI - Arrhythmia/Palpitations General Chief Complaint: Arrhythmia/Palpitations Stated Complaint: on and off heart palp Time Seen by Provider: 05/05/24 02:35 Source: patient Mode of arrival: ambulatory Limitations: no limitations History of Present Illness ED Provider: johan WOODS narrative: Patient's history of PACs/PVCs had Holter monitoring done in 03/03 comes here for more frequent episodes for last few days especially since 21:00 no dizziness no chest pain no shortness a breath patient has been drinking increased caffeine and under stress because of her mother sickness no fever no chills no syncope episode no dizziness Related Data Previous Rx's ?Medication ?Instructions ?Recorded ibuprofen 600 mg tablet 600 mg PO Q8H PRN pain #30 tabs 06/11/22 epinephrine 0.3 mg/0.3 mL 0.3 mg (0.3 mL) IM Q4H PRN 12/20/22 injection, auto-injector (EpiPen) anaphylaxis #2 ea meclizine 25 mg tablet 25 mg PO TID PRN dizziness #20 tabs 12/21/22 ondansetron 4 mg disintegrating 4 mg PO Q8H #7 tabs 02/08/23 tablet ondansetron 4 mg disintegrating 4 mg PO Q8H PRN nausea and 09/22/23 tablet vomiting #20 tabs lorazepam 1 mg tablet 1 mg PO BEDTIME PRN sleep/anxiety 05/05/24 #14 tabs Allergies Allergy/AdvReac Type Severity Reaction Status Date / Time nut - unspecified Allergy Anaphylaxis Verified 05/05/24 01:39 procaine AdvReac Unknown faints Verified 05/05/24 01:39 Review of Systems 2 Review of Systems: Yes all other systems are reviewed and are negative PMFSH Past Medical History Medical History No active medical problems Surgical History S/P breast biopsy, right Family History Family History Father H/O heart artery stent Cardiovascular disease Mother No problems noted. Social History Social History Alcohol intake: former Patient Tobacco Use Status: Never used Tobacco Smoked in Last 30 Days: No Use of substances other than those prescribed or required for medical reasons: No Advance Directives: No Advance Directives Information Provided: Yes Physical Exam 2 Vital Signs: Vital Signs: Last Vital Signs Temp 98.0 F 05/05/24 03:59 Pulse 72 05/05/24 03:59 Resp 18 05/05/24 03:59 BP 113/78 05/05/24 03:59 Pulse Ox 98 05/05/24 03:59 O2 Del Method Room Air 05/05/24 03:59 BMI result Body Mass Index 25.2 Appearance: Alert. Oriented X3. No acute distress. Eyes: PERRLA, No Nystagmus ENT: Pharynx normal. Oral Mucosa moist Neck: Normal inspection. Neck supple. CVS: Normal heart rate and rhythm. Pulses normal. Occasional PACs no murmur rub or gallop Respiratory: No respiratory distress. Equal air entry bilateral, no wheezing/rales/rhonchi Abdomen: Soft and nontender. Bowel sounds are present, no mass palpable, no CVA tenderness Skin: Skin warm and dry. Normal skin color. Normal skin turgor. Extremities: No lower extremity edema. No calf tenderness Neuro: Oriented X 3. No motor deficit. Medications Administered Discontinued Medications Generic Name Dose Route Start Last Admin Trade Name Freq PRN Reason Stop Dose Admin Lorazepam 1 mg 05/05/24 02:50 05/05/24 02:56 Lorazepam 1 Mg Tablet PO 05/05/24 02:51 1 mg ONCE ONE Administration Medical Decision Making Medical Decision Making [facility] Narrative: Patient with few PACs during stay in the ER occasional PVCs patient is taking increased caffeine lately with increased stress likely the cause will prescribe lorazepam to relax and sleep advised to follow with safety associate Differential Diagnosis Differential Diagnoses: The differential diagnosis associated with the presentation includes PACs/PVCs/AFib/atrial flutter Admission/Observation Consideration of admission/observation: Escalation of care including admission/observation considered Lab Data [facility] Lab Attestation statement: I reviewed the patient's lab results. 05/05/24 02:22 05/05/24 02:22 Labs: Lab Results 05/05/24 Range/Units 02:22 WBC 9.6 (4.8-10.8) X10*3/uL RBC 4.35 (4.20-5.50) X10*6/uL Hgb 9.9 L (12.0-16.0) g/dl Hct 31.9 L (37.0-47.0) % MCV 73.3 L (80.0-98.0) fL MCH 22.8 L (27.0-33.0) pg MCHC 31.0 (31.0-35.0) g/dl RDW 18.0 H (11.0-16.0) % Plt Count 229 (160-400) X10*3/uL MPV 12.4 H (9.4-12.3) fL Immature Gran % (Auto) 0.2 (0.0-0.4) % Neut % (Auto) 55.2 (45-73) % Lymph % (Auto) 31.3 (20-40) % [place] % (Auto) 7.7 (2-11) % Eos % (Auto) 4.7 H (0-4) % Baso % (Auto) 0.9 (0-2) % Lymph # (Auto) 3.0 (1.2-4.9) X10*3/uL [place] # (Auto) 0.7 (0.1-1.2) X10*3/uL Eos # (Auto) 0.5 H (0.0-0.4) X10*3/uL Baso # (Auto) 0.1 (0.0-0.2) X10*3/uL Abs Immat Gran (auto) 0.02 (0.00-0.03) X10*3/uL Absolute Neuts (auto) 5.3 (2.0-8.3) x10*3/uL Absolute Nucleated RBC 0.000 (0.0-0.012) X10*3/uL Nucleated RBC % (auto) 0.0 (0.0-0.2) /100WBC Smear Tech's Comments VERIFIED Sodium 139 (135-145) mmol/L Potassium 3.5 (3.3-5.1) mmol/L Chloride 108 (96-108) mmol/L Carbon Dioxide 20 L (22-29) mmol/L Anion Gap 15 (12-20) BUN 14 (9-16) mg/dL Creatinine 0.76 (0.5-1.4) mg/dL Estim Creat Clear Calc 98.5 Estimated GFR > 60 Random Glucose 104 (60-115) mg/dL Calcium 9.1 (8.4-10.2) mg/dL Magnesium 1.9 (1.6-2.6) mg/dL Total Bilirubin 0.3 (0.0-1.0) mg/dL AST 11 (5-31) U/L ALT 11 (0-31) U/L Alkaline Phosphatase 57 (39-117) U/L Troponin I High Sens 6.1 D (<3.5-17.0) ng/L Total Protein 7.0 (6.5-8.0) g/dL Albumin 3.9 (3.5-5.0) g/dL Independent Interpretation I performed an independent interpretation of an: EKG Interpretation: Normal sinus rhythm heart rate 70 beats per minute normal interval normal axis no acute ST T wave changes no acute ischemia Discharge Plan Discharge Clinical Impression: Atrial premature beats Patient Disposition: Home, Self-Care Instructions: Premature Atrial Contractions (ED) Additional Instructions: Decreased caffeine intake Lorazepam for sleep and relaxation Follow with your safety associate if condition gets worse/passing out episode Prescriptions: New lorazepam 1 mg tablet 1 mg PO BEDTIME PRN (Reason: sleep/anxiety) Qty: 14 0RF No Action epinephrine [EpiPen] 0.3 mg/0.3 mL auto-injector 0.3 mg IM Q4H PRN (Reason: anaphylaxis) Qty: 2 0RF ibuprofen 600 mg tablet 600 mg PO Q8H PRN (Reason: pain) Qty: 30 0RF meclizine 25 mg tablet 25 mg PO TID PRN (Reason: dizziness) Qty: 20 0RF ondansetron 4 mg tablet,disintegrating 4 mg PO Q8H PRN (Reason: nausea and vomiting) Qty: 20 0RF ondansetron 4 mg tablet,disintegrating 4 mg PO Q8H Qty: 7 0RF Interventions: ED Discharge Assessment Last Done: 05/05/24 03:59 Discharge Date/Time: 05/05/24 04:00 Print Language: [place]ian
[2024-05-05 02:42] LABS: Basophils Absolute Auto 0.1 X10*3/uL (0.0-0.2); Basophils Percent Auto 0.9 % (0-2); Eosinophils Absolute Auto 0.5 X10*3/uL (0.0-0.4); Eosinophils Percent Auto 4.7 % (0-4); Hematocrit 31.9 % (37.0-47.0); Hemoglobin 9.9 g/dl (12.0-16.0); Imm Gran Abs Auto 0.02 X10*3/uL (0.00-0.03); Imm Gran Pct Auto 0.2 % (0.0-0.4); Lymphocytes Percent Auto 31.3 % (20-40); MANUAL DIFF FLAG SCAN; Mean Corpuscular Hemoglobin 22.8 pg (27.0-33.0); Mean Corpuscular Volume 73.3 fL (80.0-98.0); Mean Platelet Volume 12.4 fL (9.4-12.3); Monocytes Absolute Auto 0.7 X10*3/uL (0.1-1.2); Monocytes Percent Auto 7.7 % (2-11); Neutrophils Absolute Auto 5.3 x10*3/uL (2.0-8.3); Neutrophils Percent Auto 55.2 % (45-73); PLT CLUMP 1; Platelet Count 229 X10*3/uL (160-400); Red Blood Count 4.35 X10*6/uL (4.20-5.50); SCAN SMEAR FLAG 1; White Blood Count 9.6 X10*3/uL (4.8-10.8)
[2024-05-05 02:48] LABS: Alanine Aminotransferase 11 U/L (0-31); Albumin Level 3.9 g/dL (3.5-5.0); Alkaline Phosphatase 57 U/L (39-117); Anion Gap 15 (12-20); Aspartate Amino Transferase 11 U/L (5-31); Bilirubin Total 0.3 mg/dL (0.0-1.0); Blood Urea Nitrogen 14 mg/dL (9-16); Calcium 9.1 mg/dL (8.4-10.2); Carbon Dioxide 20 mmol/L (22-29); Chloride 108 mmol/L (96-108); Creatinine Clr Calc Pharmacy 98.5; Estimated Glomerular Filt Rate > 60; Glucose Random 104 mg/dL (60-115); Magnesium 1.9 mg/dL (1.6-2.6); Potassium 3.5 mmol/L (3.3-5.1); Sodium 139 mmol/L (135-145)
[2024-05-05 02:51] LABS: SLIDE REVIEW VERIFIED
[2024-05-05 02:53] LABS: Troponin-I High Sensitivity 6.1 ng/L (<3.5-17.0)
[2024-05-05] MEDS: LORazepam 1 MG TABLET PO (02:56)
--- NOTE | 2024-05-05 03:28 | PC.NURSE ---
pt up and amb slowly and steadily to the bathroom, states, she doesn't feel as anxious, but she can still feel the palpatations
[2024-05-05 03:59] VITALS: BP 113/78; PULSE 72; RESP 18; TEMP 36.7; O2SAT 98
== END 2024-05-05 04:00 | disposition home or self-care (01) ==
PROVIDERS: Emergency Provider Internal Medicine; PCP Family Medicine
DX: I49.1 Atrial premature depolarization (principal); R00.2 Palpitations; R42 Dizziness and giddiness; R06.02 Shortness of breath
CPT/HCPCS: 36415; 80053; 83735; 84484; 85025; 93005; 99283; 99284

== ENCOUNTER → 2024-05-05 01:28 | Outpatient (BNV) | payer MEDICAID, SELFPAY | PROVIDERS: Emergency Provider Internal Medicine; PCP Family Medicine; Visit Provider Internal Medicine | DX: R00.2 Palpitations (principal) | CPT/HCPCS: 93010 ==

== ENCOUNTER 2024-05-06 10:15 | Outpatient (REF) | payer MEDICAID, SELFPAY ==
[2024-05-06 14:46] LABS: TSH reflex Free T4 0.92 uIU/mL (0.32-4.0)
== END 2024-05-06 10:16 | disposition home or self-care (01) ==
LOC: HO.CHCLDS 10:15
PROVIDERS: Visit Provider Internal Medicine
DX: R00.2 Palpitations (principal)
CPT/HCPCS: 36415; 84443

== ENCOUNTER 2025-04-30 13:53 | Emergency (ER) | payer MEDICAID, SELFPAY ==
--- NOTE | ~2025-04-30 | US_ITS ---
CLINICAL HISTORY: pain and bleeding US OB 1ST TRIMESTER TRANSABDOMINAL Comparison: None provided Findings: Single intrauterine . CRL: 4.5 mm. EGA: 6 weeks, 2 days. HECTOR: December 22, 2025. Previously established gestational age: N/A. Normal yolk sac . Cardiac activity: 116 bpm. No subchorionic bleed. The right ovary is not well seen probably due to its position in the pelvis. Left ovary appears unremarkable measuring 4.1 x 3.1 x 2.5 cm. No free fluid. IMPRESSION: Single intrauterine estimated 6 weeks, 2 days gestational age by today's ultrasound criteria. This document has been electronically signed by: Minda Pierre DO on 04/30/2025 16:49:38
[2025-04-30 13:57] VITALS: BP 120/67; PULSE 80; RESP 18; TEMP 36.6; O2SAT 98; BMI 27.1
--- NOTE | 2025-04-30 13:57 | ED.GENADULT ---
HPI - General Adult General Chief complaint: Vaginal Bleeding Stated complaint: vaginal bleeding cramping Time Seen by Provider: 04/30/25 14:13 Source: patient Mode of arrival: ambulatory Limitations: no limitations History of Present Illness ED Provider: [facility] narrative: Patient reports last menstrual period 8 weeks ago she had a positive test at home, she is , this is an unplanned , presenting with abdominal cramping had some passage of clots few days ago today just spotting, no fevers or chills no nausea no vomiting. Cramping is intermittent. Related Data Previous Rx's ?Medication ?Instructions ?Recorded ibuprofen 600 mg tablet 600 mg PO Q8H PRN pain #30 tabs 06/11/22 epinephrine 0.3 mg/0.3 mL 0.3 mg (0.3 mL) IM Q4H PRN 12/20/22 injection, auto-injector (EpiPen) anaphylaxis #2 ea meclizine 25 mg tablet 25 mg PO TID PRN dizziness #20 tabs 12/21/22 ondansetron 4 mg disintegrating 4 mg PO Q8H #7 tabs 02/08/23 tablet ondansetron 4 mg disintegrating 4 mg PO Q8H PRN nausea and 09/22/23 tablet vomiting #20 tabs lorazepam 1 mg tablet 1 mg PO BEDTIME PRN sleep/anxiety 05/05/24 #14 tabs vit no.95-ferrous 1 tab PO DAILY #90 tabs 04/30/25 fumarate 28 mg-folic acid 800 mcg tablet ( Formula) Allergies Allergy/AdvReac Type Severity Reaction Status Date / Time nut - unspecified Allergy Anaphylaxis Verified 04/30/25 13:59 procaine AdvReac Unknown faints Verified 04/30/25 13:59 Review of Systems Constitutional: Constitutional: Reports as per [facility] Past Medical History Medical History No active medical problems Surgical History S/P breast biopsy, right Family History Family History Father H/O heart artery stent Cardiovascular disease Mother No problems noted. Social History Social History Alcohol intake: former Patient Tobacco Use Status: Never used Tobacco Smoked in Last 30 Days: No Use of substances other than those prescribed or required for medical reasons: No Advance Directives: No Advance Directives Information Provided: No Do you have a plan to hurt others: No Plan Patient : Yes Physical Exam ED Vital Signs: Vital Signs - 24 hr 04/30/25 13:57 04/30/25 14:50 Temperature 98 F 98.1 F Pulse Rate 80 72 Respiratory Rate 18 18 Blood Pressure 120/67 103/69 Pulse Oximetry 98 98 Oxygen Delivery Method Room Air Room Air BMI result Body Mass Index 27.1 Const Other: Gen: ?Overall well-appearing patient HEENT: PERRLA, EOMI, MMM, Neck: Supple, no LAD CV: RRR, no obvious murmurs appreciated Resp: ?No wheezing rales rhonchi no stridor moving air well Abd: ?Bowel sounds are present, suprapubic tenderness no rebound no rigidity and, deferred MSK: FROM, strength 5/5 all extremities Skin: Warm, dry, intact, Neuro: ?Alert and oriented x3, moving upper and lower extremities symmetrically, no obvious facial asymmetry noted Course Course Course Narrative: RME, this is a rapid medical exam performed by Jose Enrique Mcdonald please refer to primary provider for complete H&P- 39 year old female presents for evaluation of lower abdominal pain and vaginal bleeding. She reports that she is about 8 weeks . Plan for labs and ultrasound. She is Procedures Ultrasound ED POC Ultrasound: Transabdominal ultrasound of the pelvic area obtained, images stored Axial and sagittal views were obtained, there is a gestational sac with a yolk sac, adnexal areas examined as well, there is trace a physiologic fluid in the pouch of [place], no masses in the adnexa Medical Decision Making Medical Decision Making MDM Narrative: Evaluating with early , cramping and spotting, we will workup for ectopic , we will obtain official ultrasound but bedside ultrasound obtained interpreted by me reveals Presence of gestational sac and what appears to be a yolk sac between triage gestational sac and what appears to be a yolk sac but I will rely on official ultrasound report, we will check type and screening to make sure that she does not need RhoGAM, she did tell me that she has a OB appointment coming up on the of this month so depending on her what her workup reveals such as quant, an official ultrasound I think it should be fine to follow up with her OB o or maybe bring her back to ER to trend quantitative hCG, disposition to be determined Differential Diagnosis Differential Diagnoses: The differential diagnosis associated with the presentation includes Ectopic , threatened , implantation bleeding, normal Admission/Observation Consideration of admission/observation: Escalation of care including admission/observation considered 2022 Emergency Medicine Coding Guide from [employer] on 04/30/2025 All calculations should be rechecked by clinician prior to use RESULT SUMMARY: 5 Estimated Level of Service Problems: Moderate (4) Risk: High (5) Data: Extensive (5) NARRATIVE MDM: This patient's problem complexity is Moderate as patient: has a new undiagnosed problem with uncertain prognosis but that could be serious. This patient's risk is High due to: overall presentation requiring evaluation for a potentially High-risk process. This patient's data complexity is Extensive due to: -multiple tests ordered -independent interpretation of imaging or EKG INPUTS: Number and Complexity ?> 5 = 4: undiagnosed new problem, uncertain outcome (e) Risk level ?> 4 = High Tests ordered ?> 2 = 2 Tests results reviewed (excluding labs) ?> 1 = 1 Prior external notes reviewed ?> 0 = 0 Assessment requiring and independent historian ?> 0 = No Independent interpretation of tests ?> 1 = Yes Discussed management/test interpretation w/external professional ?> 0 = No Lab Data 04/30/25 14:17 04/30/25 14:18 Labs: Lab Results 04/30/25 04/30/25 04/30/25 Range/Units 14:17 14:18 14:47 WBC 11.0 H (4.8-10.8) X10*3/uL RBC 4.53 (4.20-5.50) X10*6/uL Hgb 10.9 L (12.0-16.0) g/dl Hct 34.1 L (37.0-47.0) % MCV 75.3 L (80.0-98.0) fL MCH 24.1 L (27.0-33.0) pg MCHC 32.0 (31.0-35.0) g/dl RDW 18.8 H (11.0-16.0) % Plt Count 239 (160-400) X10*3/uL MPV 12.2 (9.4-12.3) fL Immature Gran % (Auto) 0.7 H (0.0-0.4) % Neut % (Auto) 68.2 (45-73) % Lymph % (Auto) 19.3 L (20-40) % [place] % (Auto) 6.9 (2-11) % Eos % (Auto) 4.0 (0-4) % Baso % (Auto) 0.9 (0-2) % Lymph # (Auto) 2.1 (1.2-4.9) X10*3/uL [place] # (Auto) 0.8 (0.1-1.2) X10*3/uL Eos # (Auto) 0.4 (0.0-0.4) X10*3/uL Baso # (Auto) 0.1 (0.0-0.2) X10*3/uL Abs Immat Gran (auto) 0.08 H (0.00-0.03) X10*3/uL Absolute Neuts (auto) 7.5 (2.0-8.3) x10*3/uL Absolute Nucleated RBC 0.000 (0.0-0.012) X10*3/uL Nucleated RBC % (auto) 0.0 (0.0-0.2) /100WBC Smear Tech's Comments VERIFIED Sodium 139 (135-145) mmol/L Potassium 4.0 (3.3-5.1) mmol/L Chloride 109 H (96-108) mmol/L Carbon Dioxide 21 L (22-29) mmol/L Anion Gap 13 (12-20) BUN 13 (9-16) mg/dL Creatinine 0.63 (0.5-1.4) mg/dL Estim Creat Clear Calc 130.6 Estimated GFR > 60 Random Glucose 122 H (60-115) mg/dL Calcium 9.0 (8.4-10.2) mg/dL Total Bilirubin 0.2 (0.0-1.0) mg/dL AST 17 (5-31) U/L ALT 17 (0-31) U/L Alkaline Phosphatase 53 (39-117) U/L Total Protein 6.7 (6.5-8.0) g/dL Albumin 3.9 (3.5-5.0) g/dL Lipase 36 (8-78) U/L Beta HCG, Quant 62899 mIU/mL Urine Color Yellow Urine Appearance Clear Urine pH 6.5 (5.0-9.0) Ur Specific [place] 1.025 (1.005-1.025) Urine Protein Negative (Neg-Trace) mg/dL Urine Glucose (UA) 100 H (Negative) mg/dL Urine Ketones Negative (Negative) mg/dL Urine Blood Negative (Negative) Urine Nitrite Negative (Negative) Ur Leukocyte Esterase Small (1+) H (Negative) Urine RBC 0-2 (0-2) /HPF Urine WBC 6-10 H (0-5) /HPF Ur Squamous Epith Cells 3-5 (0-2) /HPF Urine Bacteria None Seen (None Seen) Hyaline Casts 0-2 (0-2) /LPF Blood Type O Positive Independent Interpretation I performed an independent interpretation of an: Ultrasound (Official ultrasound also shows intrauterine with a noted heart rate of 116, GA 6 weeks and 2 days) Discharge Plan Discharge Clinical Impression: Vaginal spotting, First trimester Patient Disposition: Home, Self-Care Additional Instructions: Ultrasound shows that you have live intrauterine , 6 weeks 2 days gestation by ultrasound, there is heart rate of 116, your workup reveals stable anemia, I recommend that you take vitamins, iron supplements, make sure you follow up with 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, this can be normal spotting in early , it may be threatened miscarriage but for now I do not see any indication of that, I do recommend no heavy lifting and abstaining from sexual activity until cleared by 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 any worsening symptoms concerns come back to the ER Prescriptions: New PNV cmb#95-ferrous fumarate-FA [ Formula] 28 mg iron- 800 mcg tablet 1 tab PO DAILY Qty: 90 0RF No Action epinephrine [EpiPen] 0.3 mg/0.3 mL auto-injector 0.3 mg IM Q4H PRN (Reason: anaphylaxis) Qty: 2 0RF ibuprofen 600 mg tablet 600 mg PO Q8H PRN (Reason: pain) Qty: 30 0RF meclizine 25 mg tablet 25 mg PO TID PRN (Reason: dizziness) Qty: 20 0RF ondansetron 4 mg tablet,disintegrating 4 mg PO Q8H PRN (Reason: nausea and vomiting) Qty: 20 0RF ondansetron 4 mg tablet,disintegrating 4 mg PO Q8H Qty: 7 0RF lorazepam 1 mg tablet 1 mg PO BEDTIME PRN (Reason: sleep/anxiety) Qty: 14 0RF Print Language: Greek
[2025-04-30 14:34] LABS: Hematocrit 34.1 % (37.0-47.0); Hemoglobin 10.9 g/dl (12.0-16.0); Imm Gran Abs Auto 0.08 X10*3/uL (0.00-0.03); Imm Gran Pct Auto 0.7 % (0.0-0.4); Lymphocytes Absolute Auto 2.1 X10*3/uL (1.2-4.9); MANUAL DIFF FLAG SCAN; Mean Corpuscular HGB Conc 32.0 g/dl (31.0-35.0); Mean Corpuscular Hemoglobin 24.1 pg (27.0-33.0); Mean Corpuscular Volume 75.3 fL (80.0-98.0); NRBC Abs Auto 0.000 X10*3/uL (0.0-0.012); NRBC Pct Auto 0.0 /100WBC (0.0-0.2); PLT ABN DIST 1; Platelet Count 239 X10*3/uL (160-400); Red Blood Count 4.53 X10*6/uL (4.20-5.50); SCAN SMEAR FLAG 1; White Blood Count 11.0 X10*3/uL (4.8-10.8)
[2025-04-30 14:50] VITALS: BP 103/69; PULSE 72; RESP 18; TEMP 36.7; O2SAT 98
[2025-04-30 14:57] LABS: Alanine Aminotransferase 17 U/L (0-31); Albumin Level 3.9 g/dL (3.5-5.0); Alkaline Phosphatase 53 U/L (39-117); Anion Gap 13 (12-20); Aspartate Amino Transferase 17 U/L (5-31); Blood Urea Nitrogen 13 mg/dL (9-16); Calcium 9.0 mg/dL (8.4-10.2); Carbon Dioxide 21 mmol/L (22-29); Chloride 109 mmol/L (96-108); Creatinine Clr Calc Pharmacy 130.6; Estimated Glomerular Filt Rate > 60; Lipase 36 U/L (8-78); Potassium 4.0 mmol/L (3.3-5.1); Sodium 139 mmol/L (135-145); Total Protein 6.7 g/dL (6.5-8.0)
[2025-04-30 14:59] LABS: Appearance Urine Clear; Glucose Urine UA 100 mg/dL (Negative); PH 6.5 (5.0-9.0); Specific Gravity - Urine 1.025 (1.005-1.025); UMIC TRIGGER UACC YES
[2025-04-30 15:04] LABS: UACC Culture Trigger YES
[2025-04-30 16:48] VITALS: BP 111/65; PULSE 68; RESP 18; TEMP 36.6; O2SAT 98
== END 2025-04-30 16:48 | disposition home or self-care (01) ==
PROVIDERS: Physician Assistant; Emergency Provider Emergency Medicine; PCP Family Medicine
DX: O20.9 Hemorrhage in early pregnancy, unspecified (principal); N39.0 Urinary tract infection, site not specified; R25.2 Cramp and spasm; Z79.899 Other long term (current) drug therapy; R10.2 Pelvic and perineal pain
CPT/HCPCS: 36415; 76801; 80053; 81001; 83690; 84702; 85025; 86900; 86901; 87086; 87088; 87186; 99284

== ENCOUNTER → 2025-04-30 13:57 | Outpatient (BNV) | payer MEDICAID, SELFPAY | PROVIDERS: Emergency Provider Emergency Medicine; PCP Family Medicine; Visit Provider Radiology Diagnostic Radiology | DX: O26.851 Spotting complicating pregnancy, first trimester (principal) | CPT/HCPCS: 76801 ==